=== PATIENT | female | born 1945 | race Caucasian/White ===

== ENCOUNTER → 2020-07-30 17:50 | Outpatient (CLI) | payer MEDICARE, SELFPAY ==
[2020-07-30 17:54] LABS: Microscopic, Urine URINE MICROSCOPIC (MICROSCOPIC)
[2020-07-30 18:05] LABS: Appearance,Urine CLOUDY (Clear); Bilirubin,Urine Negative (Negative); Blood, Urine 3+ (Negative); Color,Urine YELLOW (Yellow); Glucose,Urine (UA) Negative (Negative); Ketones,Urine Negative (Negative); Leukocyte Esterase,Urine Negative (Negative); Nitrate,Urine Negative (Negative); PH,Urine 5.5 (5.0-8.5); Protein,Urine TRACE (Negative); Specific Gravity, Urine >= 1.030 (1.005-1.030)
[2020-07-30 18:26] LABS: Basophils # 0.1 K/mm3 (0-0.2); Basophils % 0.9 % (0.1-2.0); Eosinophils # 0.1 K/mm3 (0.0-0.4); Eosinophils % 1.7 % (0.1-12.0); Hematocrit 41.9 % (37.0-47.0); Hemoglobin 13.3 g/dL (12.2-16.2); Lymphocytes # 1.6 K/mm3 (0.7-4.5); Lymphocytes % 26.1 % (10-50); Mean Corpuscular HGB Conc 31.8 g/dL (31.8-35.4); Mean Corpuscular Volume 78.6 fl (81-99); Mean Platelet Volume 9.5 fl (7.4-10.4); Monocytes # 0.6 K/mm3 (0.1-1.0); Monocytes % 8.8 % (1.7-9.3); Neutrophils # 3.9 K/mm3 (1.8-7.8); Neutrophils % 62.5 % (37.0-80.0); Platelet Count 345 K/mm3 (142-424); Red Blood Count 5.33 M/mm3 (4.20-5.40); Red Cell Distribution Width 14.9 % (11.5-17.5); White Blood Count 6.3 K/mm3 (4.8-10.8)
[2020-07-30 18:40] LABS: Alanine Aminotransferase 11 U/L (12-78); Albumin Level 3.9 g/dl (3.5-5.0); Alkaline Phosphatase 139 U/L (38-126); Anion Gap 14.5 mEq/L (5-15); Aspartate Amino Transferase 26 U/L (14-36); Bilirubin,Total 0.5 mg/dl (0.2-1.3); Blood Urea Nitrogen 13 mg/dl (7-17); Calcium 9.4 mg/dl (8.4-10.2); Carbon Dioxide 30 mmol/L (22.0-30.0); Chloride 100 mmol/L (98-107); Chol/HDL Ratio 2.7 (1-3.5); Cholesterol 166 mg/dl (140-200); Estimated Glomerular Filt Rate 82 ml/min (>60); GFR (African American) 99 ML/MIN (>60); Globulin 3.9 g/dL (1.3-3.2); Glucose 107 mg/dl (74-100); HDL Cholesterol 61 mg/dl (40-60); Potassium 4.5 mmoL/L (3.5-5.1); Sodium 140 mmol/L (136-145); Total Protein,Serum 7.8 g/dl (6.3-8.2); Triglycerides 132 mg/dl (30-150); VLDL Cholesterol 26 mg/dL (0-40)
[2020-07-30 18:51] LABS: Direct LDL Cholesterol 71.26 mg/dL (100-129)
[2020-07-30 18:56] LABS: Free T4 (Free Thyroxine) 1.52 ng/dl (0.78-2.19)
[2020-07-30 19:04] LABS: 25-OH Vitamin D, Total < 12.8 ng/mL (30-100)
[2020-07-30 19:10] LABS: Thyroid Stimulating Hormone 1.57 uIU/mL (0.465-4.68)
== END ==
PROVIDERS: Visit Provider Emergency Medicine
DX: K50.90 Crohn's disease, unspecified, without complications (principal); R53.83 Other fatigue; E78.5 Hyperlipidemia, unspecified; E55.9 Vitamin D deficiency, unspecified
CPT/HCPCS: 80053; 80061; 81001; 82306; 84439; 84443; 85025

== ENCOUNTER → 2022-01-22 07:09 | Outpatient (CLI) | payer MEDICARE, SELFPAY ==
[2022-01-21 17:11] LABS: Basophils # 0.1 K/mm3 (0-0.2); Basophils % 0.4 % (0.1-2.0); Eosinophils # 0.2 K/mm3 (0.0-0.4); Eosinophils % 1.9 % (0.1-12.0); Hematocrit 35.8 % (37.0-47.0); Hemoglobin 10.9 g/dL (12.2-16.2); Lymphocytes # 1.5 K/mm3 (0.7-4.5); Lymphocytes % 13.4 % (10-50); Mean Corpuscular HGB Conc 30.6 g/dL (31.8-35.4); Mean Corpuscular Hemoglobin 23.8 pg (27.0-31.2); Mean Corpuscular Volume 77.8 fl (81-99); Mean Platelet Volume 7.5 fl (7.4-10.4); Monocytes # 0.6 K/mm3 (0.1-1.0); Monocytes % 5.3 % (1.7-9.3); Neutrophils # 8.9 K/mm3 (1.8-7.8); Neutrophils % 78.9 % (37.0-80.0); Platelet Count 645 K/mm3 (142-424); Red Cell Distribution Width 14.8 % (11.5-17.5); White Blood Count 11.3 K/mm3 (4.8-10.8)
[2022-01-21 17:13] LABS: Alanine Aminotransferase 10 U/L (12-78); Albumin/Globulin Ratio 0.8 (1.1-1.8); Alkaline Phosphatase 153 U/L (38-126); Anion Gap 9.4 mEq/L (5-15); Aspartate Amino Transferase 19 U/L (14-36); Bilirubin,Total 0.2 mg/dl (0.2-1.3); Blood Urea Nitrogen 8 mg/dl (7-17); Calcium 9.1 mg/dl (8.4-10.2); Carbon Dioxide 38 mmol/L (22.0-30.0); Chloride 93 mmol/L (98-107); Chol/HDL Ratio 2.2 (1-3.5); Cholesterol 149 mg/dl (140-200); Estimated Glomerular Filt Rate 97 ml/min (>60); GFR (African American) 118 ML/MIN (>60); Globulin 3.6 g/dL (1.3-3.2); Glucose 100 mg/dl (74-100); HDL Cholesterol 67 mg/dl (40-60); Potassium 3.4 mmoL/L (3.5-5.1); Sodium 137 mmol/L (136-145); Total Protein,Serum 6.6 g/dl (6.3-8.2); Triglycerides 121 mg/dl (30-150); VLDL Cholesterol 24 mg/dL (0-40)
[2022-01-21 17:23] LABS: Direct LDL Cholesterol 46.46 mg/dL (100-129)
[2022-01-21 17:32] LABS: 25-OH Vitamin D, Total < 12.8 ng/mL (30-100)
[2022-01-21 17:33] LABS: Free T4 (Free Thyroxine) 1.58 ng/dl (0.78-2.19)
[2022-01-21 17:43] LABS: Erythrocyte Sedimentation Rate 55 mm/hr (0-30)
[2022-01-21 18:08] LABS: Vitamin B12 > 1000 pg/mL (239-931)
== END ==
PROVIDERS: PCP Emergency Medicine; Visit Provider Emergency Medicine
DX: K50.90 Crohn's disease, unspecified, without complications (principal); R53.83 Other fatigue; E55.9 Vitamin D deficiency, unspecified; E78.5 Hyperlipidemia, unspecified
CPT/HCPCS: 80053; 80061; 82306; 82607; 84439; 84443; 85025; 85651

== ENCOUNTER → 2022-01-28 11:48 | Outpatient (CLI) | payer MEDICARE, SELFPAY ==
[2022-01-28 13:07] LABS: Iron 16 ug/dL (37-170)
[2022-01-28 13:17] LABS: Total Iron Binding Capacity 157 ug/dL (265-497)
[2022-01-28 15:39] LABS: Ferritin 548 ng/ml (11.1-264)
[2022-01-30 11:59] LABS: Peripheral Smear Review Scanned Result
== END ==
PROVIDERS: PCP Emergency Medicine; Visit Provider Emergency Medicine
DX: R79.9 Abnormal finding of blood chemistry, unspecified (principal)
CPT/HCPCS: 36415; 82728; 83540; 83550

== ENCOUNTER → 2022-03-06 11:50 | Outpatient (CLI) | payer MEDICARE, SELFPAY ==
[2022-03-06 12:41] LABS: Basophils # 0.1 K/mm3 (0-0.2); Basophils % 0.9 % (0.1-2.0); Eosinophils # 0.3 K/mm3 (0.0-0.4); Hematocrit 37.3 % (37.0-47.0); Lymphocytes # 1.4 K/mm3 (0.7-4.5); Lymphocytes % 16.5 % (10-50); Mean Corpuscular HGB Conc 29.5 g/dL (31.8-35.4); Mean Corpuscular Hemoglobin 24.1 pg (27.0-31.2); Mean Corpuscular Volume 81.7 fl (81-99); Mean Platelet Volume 7.4 fl (7.4-10.4); Monocytes # 0.4 K/mm3 (0.1-1.0); Monocytes % 4.6 % (1.7-9.3); Neutrophils # 6.2 K/mm3 (1.8-7.8); Neutrophils % 73.9 % (37.0-80.0); Platelet Count 526 K/mm3 (142-424); Red Blood Count 4.56 M/mm3 (4.20-5.40); Red Cell Distribution Width 16.8 % (11.5-17.5); White Blood Count 8.4 K/mm3 (4.8-10.8)
[2022-03-06 13:10] LABS: Iron 29 ug/dL (37-170)
[2022-03-06 13:46] LABS: Ferritin 380 ng/ml (11.1-264)
[2022-03-16 19:08] LABS: Interpretation: Negative (.)
== END ==
PROVIDERS: PCP Emergency Medicine; Visit Provider Internal Medicine Medical Oncology
DX: D45 Polycythemia vera; D50.8 Other iron deficiency anemias
CPT/HCPCS: 36415; 81206; 81270; 82728; 83540; 85025

== ENCOUNTER 2023-08-27 00:39 | Observation (INO) | payer MEDICARE, SELFPAY ==
[2023-08-27] VITALS (13 sets, daily range): BP systolic 118–155; BP diastolic 62–86; PULSE 68–145; RESP 13–20; TEMP 36.6–37.2; O2SAT 94–98; BMI 20.3; BMI 20.5; BMI 21.8
--- NOTE | 2023-08-27 00:36 | ECG_ITS ---
APPROVED REPORT Exam: Resting ECG HR:152 bpm ECG Measurements Heart Rate 152 AXES QRSd 90 QRS 57 QT 231 T 262 QTc 317 Conclusion ATRIAL FIBRILLATION WITH RAPID VENTRICULAR RESPONSE MODERATE VOLTAGE CRITERIA FOR LVH, CONSIDER NORMAL VARIANT [MEETS CRITERIA IN ONE OF: R(aVL), S(V1), R(V5), R(V5/V6)+S(V1)] MARKED ST DEPRESSION, CONSIDER SUBENDOCARDIAL INJURY [0.2+ mV ST DEPRESSION] ACUTE [place] UNCONFIRMED REPORT Electronically signed by : Manohar Junior MD 08/27/2023 08:15:58
[2023-08-27 00:51] LABS: Basophils % 0.3 % (0.1-2.0); Eosinophils # 0.1 K/mm3 (0.0-0.4); Eosinophils % 0.9 % (0.1-12.0); Hematocrit 38.6 % (37.0-47.0); Hemoglobin 12.2 g/dL (12.2-16.2); Lymphocytes # 1.6 K/mm3 (0.7-4.5); Lymphocytes % 11.2 % (10-50); Mean Corpuscular HGB Conc 31.5 g/dL (31.8-35.4); Mean Corpuscular Hemoglobin 25.4 pg (27.0-31.2); Mean Corpuscular Volume 80.4 fl (81-99); Mean Platelet Volume 7.4 fl (7.4-10.4); Monocytes # 0.7 K/mm3 (0.1-1.0); Monocytes % 5.1 % (1.7-9.3); Neutrophils # 11.7 K/mm3 (1.8-7.8); Neutrophils % 82.5 % (37.0-80.0); Platelet Count 644 K/mm3 (142-424); Red Cell Distribution Width 16.2 % (11.5-17.5); White Blood Count 14.1 K/mm3 (4.8-10.8)
--- NOTE | 2023-08-27 00:54 | XR_ITS ---
PROCEDURE INFORMATION: Exam: XR Chest Exam date and time: 08/27/2023 1:15 AM Age: 77 years old Clinical indication: Pain; Chest pressure; Additional info: Chest pain TECHNIQUE: Imaging protocol: Radiologic exam of the chest. Views: 1 view. COMPARISON: No relevant prior studies available. FINDINGS: Lungs: There is mild coarsening of the bronchovascular markings with hyperinflation suggesting underlying obstructive airways disease. Pleural spaces: No large effusion or pneumothorax. Heart/Mediastinum: No evidence of mediastinal widening or cardiac silhouette enlargement; the mediastinum and heart appear within normal limits for contour and size. Vasculature: There are calcifications of the aortic arch. Bones/joints: No evidence of acute osseous abnormalities within the visualized portions of the thoracic spine and ribs. Osseous structures appear appropriate for patient age. IMPRESSION: No dense parenchymal consolidation, pleural effusion, or pneumothorax.
[2023-08-27 00:55] LABS: Alanine Aminotransferase 22 U/L (12-78); Albumin Level 2.6 g/dl (3.5-5.0); Albumin/Globulin Ratio 0.7 (1.1-1.8); Alkaline Phosphatase 198 U/L (38-126); Aspartate Amino Transferase 25 U/L (14-36); Bilirubin,Total 0.4 mg/dl (0.2-1.3); Blood Urea Nitrogen 14 mg/dl (7-17); Calcium 8.3 mg/dl (8.4-10.2); Chloride 92 mmol/L (98-107); Creatinine Clearance Estimated 39 mL/min (50-200); Estimated Glomerular Filt Rate 81 ml/min (>60); GFR (African American) 98 ML/MIN (>60); Globulin 3.8 g/dL (1.3-3.2); Glucose 109 mg/dl (74-100); Sodium 137 mmol/L (136-145); Total Protein,Serum 6.4 g/dl (6.3-8.2)
--- NOTE | 2023-08-27 00:55 | HMH.EDGENADL ---
Discharge Plan Disposition Patient Disposition: Admitted Prescriptions Prescriptions: No Action vitamins B1 B6 B12 Liquid 5 ml PO DAILY Rx Instructions: administer 1 hour before a meal Slow Fe 142 mg (45 mg iron) tablet extended release 142 mg PO DAILY Qty: 90 3RF latanoprost 0.005 % drops 1 drp Eye-Both Patient Comments: INSTILL 1 DROP INTO BOTH EYES AT BEDTIME timolol maleate 0.5 % drops 1 drp Eye-Both brimonidine 0.2 % drops 1 drp Eye-Both TID Patient Comments: INSTILL 1 DROP INTO BOTH EYES 3 TIMES A DAY cholecalciferol (vitamin D3) 1,250 mcg (50,000 unit) capsule See Rx Instructions .ROUTE .COMPLEX Qty: 12 4RF Dose Instruction: TAKE ONE CAPSULE BY MOUTH WEEKLY Rx Instructions: TAKE ONE CAPSULE BY MOUTH WEEKLY cholecalciferol (vitamin D3) 25 mcg (1,000 unit) capsule See Rx Instructions .ROUTE .COMPLEX Qty: 90 3RF Dose Instruction: TAKE 1 CAPSULE BY MOUTH EVERY DAY Rx Instructions: TAKE 1 CAPSULE BY MOUTH EVERY DAY Referrals Follow up/Referrals: Provider,Referral, [Primary Care Provider] - See instructions Clinical Impressions Clinical Impression: Atrial fibrillation with rapid ventricular response, Acute hypokalemia Discharge ED Provider: Kenny Sung General Adult HPI General Chief complaint: Chest Pain Stated complaint: chest pain Time Seen by Provider: 08/27/23 00:41 Mode of Arrival: Ambulatory Source of Information: Patient Limitations: No Limitations Description of Symptoms (Recalled from ER Triage Doc. by RN): pt began having chest heaviness at CT, midsternal in location denies any N/dizziness History of Present Illness HPI narrative: 77-year-old female with history of Crohn's, no medications, no cardiac or lung history presents with acute chest pressure. She says she awoke at midnight, approximately half hour prior to arrival, with central chest pressure. She reports nothing like this has happened before. The whole family had a viral illness about 2 weeks ago, and the patient has not fully recovered, has been generally weak, has had diarrhea, reports normal appetite. Related Data Home Medications Medication Instructions Recorded Confirmed vitamins B1 B6 B12 oral liquid 5 ml PO DAILY 07/30/20 02/19/23 brimonidine 0.2 % eye drops 1 drp Eye-Both TID 10/27/22 02/19/23 latanoprost 0.005 % eye drops 1 drp Eye-Both 10/27/22 02/19/23 timolol maleate 0.5 % eye drops 1 drp Eye-Both 10/27/22 02/19/23 Previous Rx's Medication Instructions Recorded ferrous sulfate 142 mg (45 mg 142 mg PO DAILY #90 tabs 07/01/22 iron) tablet,extended release (Slow Fe) cholecalciferol (vitamin D3) 1,250 See Rx Instructions .Route 12/30/22 mcg (50,000 unit) capsule .COMPLEX #12 caps cholecalciferol (vitamin D3) 25 See Rx Instructions .Route 01/18/23 mcg (1,000 unit) capsule .COMPLEX #90 caps Allergies Allergy/AdvReac Type Severity Reaction Status Date / Time No Known Allergies Allergy Verified 02/19/23 13:05 [facility] Disclaimer: The information contained in this section may have been updated after the patient was seen, as this information can be updated by other users. Social History Smoking Status: Never smoker alcohol intake: never substance use type: denies use current occupational status: retired Travel in the last 8 weeks: None household members: family housing: house ROS Obtained: Yes All systems reviewed & no additional complaints except as documented Physical Exam General General appearance: alert and in no apparent distress Head Head exam: atraumatic and normocephalic Eye Eye exam: Present normal appearance, PERRL and EOMI ENT ENT exam: Present normal oropharynx and normal external ear exam Neck Neck exam: Present normal inspection and full ROM Chest Chest inspection: Present normal inspection and symmetric chest wall rise; Absent tenderness Respiratory Respiratory exam: Present normal lung sounds bilaterally; Absent respiratory distress Cardiovascular Cardiovascular exam: Present tachycardia and irregular rhythm Abdominal Exam Abdominal exam: Present soft; Absent distention, tenderness or guarding Extremities Exam Extremities exam: Present normal inspection; Absent edema or joint swelling Back Exam Back exam: Present normal inspection; Absent tenderness Neurological Exam Neurological exam: Present alert and oriented X3; Absent motor sensory deficit Psychiatric Psychiatric exam: Present normal affect and normal mood Skin Skin exam: Present warm, dry and normal color Lymphatic Lymphatic Findings: no adenopathy Medical Decision Making Medical Records Medical records reviewed: Yes I reviewed the patient's medical records. Jamari Inquiry Pt receiving controlled substance: No Jaamri was queried for this patient: No Vital Signs: 08/27/23 00:39 08/27/23 00:48 Temperature 97.9 F Temperature Source Oral Pulse Rate 145 H Pulse Rate [Right Radial] 86 Respiratory Rate 20 Blood Pressure [Right Arm] 133/86 Blood Pressure Mean [Right Arm] 101 02 Sat by Pulse Oximetry 95 Oxygen Delivery Method Room Air Lab Data Lab results reviewed: Yes I reviewed the patient's lab results. Lab Results 08/27/23 00:40: WBC 14.1 H, RBC 4.80, Hgb 12.2, Hct 38.6, MCV 80.4 L, MCH 25.4 L, MCHC 31.5 L, RDW 16.2, Plt Count 644 H, MPV 7.4, Neut % (Auto) 82.5 H, Lymph % (Auto) 11.2, [place] % (Auto) 5.1, Eos % (Auto) 0.9, Baso % (Auto) 0.3, Neut # (Auto) 11.7 H, Lymph # (Auto) 1.6, [place] # (Auto) 0.7, Eos # (Auto) 0.1, Baso # (Auto) 0.0, D-Dimer 0.72 H, Sodium 137, Potassium 2.3 L*, Chloride 92 L, Carbon Dioxide 38 H, Anion Gap 9.3, BUN 14, Creatinine 0.70, Estimated Creat Clear 39, Estimated GFR 81, Est GFR ( Amer) 98, Glucose 109 H, Calcium 8.3 L, Magnesium 2.0, Total Bilirubin 0.4, AST 25, ALT 22, Alkaline Phosphatase 198 H, Troponin I < 0.01, Total Protein 6.4, Albumin 2.6 L, Globulin 3.8 H, Albumin/Globulin Ratio 0.7 L, Thyroxine (T4) 9.2 08/27/23 00:40 08/27/23 00:40 Orders (Tests/Meds): ED MEDICATIONS Generic Name Dose Route Start Last Admin Trade Name Freq PRN Reason Stop Dose Admin Acetaminophen 650 mg 08/27/23 01:04 Acetaminophen 325mg Tab PO 09/26/23 01:03 Q4HP PRN Fever or Mild Pain (1-3) Enoxaparin Sodium 40 mg 08/27/23 09:00 Enoxaparin 40mg/0.4ml Syringe SQ 09/26/23 08:59 DAILY KARIN Lactated Ringer's 1,000 mls @ 999 mls/hr 08/27/23 00:45 08/27/23 01:03 Lactated Ringer's 1000 Ml Bag IV 08/27/23 01:45 999 mls/hr .Q1H1M KARIN Administration Potassium Chloride/Water 100 mls @ 100 mls/hr 08/27/23 01:15 Potassium Chloride 10meq/100ml Ivpb IV 08/27/23 04:14 Q1H KARIN Morphine Sulfate 2 mg 08/27/23 01:04 Morphine 2mg/Ml Syringe IV 09/26/23 01:03 Q2HP PRN Severe Pain (7-10) Pantoprazole Sodium 40 mg 08/27/23 09:00 Pantoprazole 40mg Tablet PO 09/26/23 08:59 DAILY KARIN Discontinued Medications Generic Name Dose Route Start Last Admin Trade Name Freq PRN Reason Stop Dose Admin Aspirin 325 mg 08/27/23 00:41 08/27/23 01:11 Aspirin 325mg Tablet PO 08/27/23 00:42 325 mg ONCE ONE Administration Diltiazem HCl 15 mg 08/27/23 01:00 08/27/23 01:03 Diltiazem 25mg/5ml Vial IV 08/27/23 01:01 15 mg ONCE ONE Administration Potassium Chloride 40 meq 08/27/23 01:01 08/27/23 01:19 Potassium Chloride 20meq Tab PO 08/27/23 01:02 40 meq ONCE ONE Administration ORDERS Category Date Time Status Cardiology Consult [Consult to Cardiology] [CONS] Cons 08/27/23 01:04 Active Routine CXR --portable [XR chest portable] Stat Exams 08/27/23 00:54 Taken CBC w/Auto Diff [Complete Blood Count Auto Diff] Stat Lab 08/27/23 00:40 Completed CMP [Comprehensive Metabolic Panel] Stat Lab 08/27/23 00:40 Results Comprehensive Metabolic Panel AMLAB Lab 08/27/23 12:00 Ordered D-Dimer Stat Lab 08/27/23 00:40 Completed Magnesium AMLAB Lab 08/27/23 12:00 Ordered Magnesium Stat Lab 08/27/23 00:40 Results T4 (Thyroxine) Stat Lab 08/27/23 00:40 Results TSH [Thyroid Stimulating Hormone] Stat Lab 08/27/23 00:40 Results Troponin I Q3H Lab 08/27/23 00:40 Results Troponin I Q3H Lab 08/27/23 03:45 Ordered UA [Urinalysis and Microscopic] Stat Lab 08/27/23 00:42 Ordered HEART Score History (anamnesis): Moderately suspicious ECG: Significant ST-deviation Age: >65 years Risk factors: No known risk factors Troponin: </= normal limit HEART Score: 5 Medical Decision Narrative: 77-year-old female presents with approximately half hour of central chest pressure. No prior cardiac history.. History was obtained via conversation with patient, family, chart review. On arrival, patient is afebrile, normotensive, tachycardic, in new onset A-fib RVR, moving all extremities spontaneously. Full physical exam performed and significant for normal physical exam. Differential includes but is not limited to new onset A-fib, [place], PE, electrolyte derangement. Patient was given aspirin 324, IV diltiazem 15 mg, 1 L fluid for symptomatic management and correction of underlying abnormalities. Workup initiated including CBC CMP mag troponin D-dimer x-ray EKG. On re-evaluation, patient remains tachycardic, normotensive. Initial diltiazem bolus did not seem to have significant effect. Laboratory workup independently interpreted by me and significant for severe hypokalemia with potassium 2.3. Normal magnesium. D-dimer within normal limits by years criteria. Initial troponin undetectable. Imaging independently interpreted by me and significant for no focal opacity. See radiology read for full review of final results. EKG independently interpreted by me and significant for atrial fibrillation with rapid ventricular rate at 152, marked diffuse ST depressions consistent with rate related subendocardial injury. CT PE was considered, but deemed unnecessary due to negative dimer. Electrical cardioversion was considered, but deemed unnecessary at this time given significant electrolyte derangements, instead we will treat the underlying source. Given patient history, exam and workup, patient's presentation most likely represents acute onset A-fib RVR related to hypokalemia. Interactive discussion was had with hospitalist on-call for admission for further evaluation and management.. Care complicated by social determinants of health including []. Procedures Risk/Benefits of Procedure(s) Were Explained: Yes Critical Care Critical Care Time Critical Care Time: Yes Attestation: On 08/27/23, the high probability of a clinically significant, sudden or life threatening deterioration of the following system(s) cardiac required my full and direct attention, intervention and personal management. The time I documented below is in addition to time spent performing reported procedures but includes the following listed in this critical care notation. Total Time Total Critical Care Time: 35
[2023-08-27 01:00] LABS: Potassium 2.3 mmoL/L (3.5-5.1)
[2023-08-27 01:01] LABS: Anion Gap 9.3 mEq/L (5-15); Carbon Dioxide 38 mmol/L (22.0-30.0); D-Dimer 0.72 ug/mL (0.0-0.5)
[2023-08-27] MEDS: LACTATED RINGERS 1000ML 1,000 ML 999 ML IV (01:03)
[2023-08-27] MEDS: dilTIAZem 25MG/5ML VIAL 15 MG IV (01:03)
--- NOTE | 2023-08-27 01:07 | P.HP_ITS ---
History of Present Illness *Admission Date: 08/27/23 *Reason for visit:: CP *History of present illness: This is a 77-year-old female with no other significant history than Crohn's disease, no medications, apparently no cardiac or lung history presented to ED with acute chest pressure. She says she awoke at midnight, approximately half hour prior to arrival, with central chest pressure. She reports nothing like this has happened before. Of note, patient reportedly having diarrhea. she is been in contact with other family members that had a viral illness about 2 weeks ago . She has been generally weak, reports normal appetite. no fever or shortness of breath. Admitted for further work up. [facility] Disclaimer: The information contained in this section may have been updated after the patient was seen, as this information can be updated by other users. Social History (Updated 08/27/23 @ 03:18 by Usha Partida RN) Smoking Status: Never smoker alcohol intake: never substance use type: denies use current occupational status: retired Travel in the last 8 weeks: None household members: family housing: house Review of Systems Review of Systems Review of systems:: pertinent systems reviewed and negative unless documented below Meds Home Medications and Allergies Home Medications Medication Instructions Recorded Confirmed Type latanoprost 0.005 % eye drops 1 drp Eye-Both HS Glaucoma 10/27/22 08/27/23 History timolol maleate 0.5 % eye drops 1 drp Eye-Both BID 10/27/22 08/27/23 History apixaban 5 mg tablet (Eliquis) 5 mg PO BID 30 days #60 tabs 08/27/23 Rx brimonidine 0.2 % eye drops 1 drp Eye-Both TID 08/27/23 08/27/23 History cholecalciferol (vitamin D3) 25 25 mcg PO DAILY Supplement 08/27/23 08/27/23 History mcg (1,000 unit) capsule ciprofloxacin HCl 250 mg tablet 250 mg PO Q12H 5 days #10 tabs 08/27/23 Rx diltiazem HCl 120 mg 120 mg PO DAILY 30 days #30 caps 08/27/23 Rx capsule,extended release 24 hr ferrous sulfate 137 mg (45 mg 137 mg PO DAILY Supplement 08/27/23 08/27/23 History iron) tablet,extended release (Slow Fe) metronidazole 500 mg tablet 500 mg PO TID 7 days #21 tabs 08/27/23 Rx New Prescriptions to Start Prescriptions: apixaban [Eliquis] Roldan,Irfan ciprofloxacin HCl Roldan,Irfan diltiazem HCl Roldan,Irfan metronidazole Roldan,Irfan Allergies Allergy/AdvReac Type Severity Reaction Status Date / Time No Known Allergies Allergy Verified 02/19/23 13:05 Exam Data for Last 24 hours Vital signs and Labs for Last 24 Hours: Temp Pulse Resp BP Pulse Ox O2 Del Method 97.9 F 145 H 20 133/86 95 Room Air 08/27/23 00:39 08/27/23 00:48 08/27/23 00:39 08/27/23 00:39 08/27/23 00:39 08/27/23 00:39 Laboratory Results - last 24 hr 08/27/23 00:40: WBC 14.1 H, RBC 4.80, Hgb 12.2, Hct 38.6, MCV 80.4 L, MCH 25.4 L , MCHC 31.5 L, RDW 16.2, Plt Count 644 H, MPV 7.4, Neut % (Auto) 82.5 H, Lymph % (Auto) 11.2, [place] % (Auto) 5.1, Eos % (Auto) 0.9, Baso % (Auto) 0.3, Neut # (Auto) 11.7 H, Lymph # (Auto) 1.6, [place] # (Auto) 0.7, Eos # (Auto) 0.1, Baso # (Auto) 0.0, D-Dimer 0.72 H, Sodium 137, Potassium 2.3 L*, Chloride 92 L, Carbon Dioxide 38 H, Anion Gap 9.3, BUN 14, Creatinine 0.70, Estimated Creat Clear 39, Estimated GFR 81, Est GFR ( Amer) 98, Glucose 109 H, Calcium 8.3 L, Magnesium 2.0, Total Bilirubin 0.4, AST 25, ALT 22, Alkaline Phosphatase 198 H, Total Protein 6.4, Albumin 2.6 L, Globulin 3.8 H, Albumin/Globulin Ratio 0.7 L I & O for Last 24 hours: Intake & Output 08/24/23 08/25/23 08/26/23 08/27/23 23:59 23:59 23:59 23:59 Weight 52.163 kg Constitutional Constitutional: mild distress and cooperative *Routine HEENT Exam Head: Present normocephalic and atraumatic Eye: Present EOMI, PERRL and normal accommodation ENT: Present mucous membranes dry *Routine Neck Exam Neck: Present supple, full ROM and trachea midline *Routine Respiratory Exam Respiratory: Present normal respiratory effort, able to speak in complete sentences and symmetric chest movement *Routine Cardiovascular Exam Cardiovascular: Present Normal S1, Normal S2, tachycardia and irregularly irregular *Routine Abdominal Exam Abdominal: Present soft, normoactive bowel sounds and tenderness; Absent organomegaly *Routine Rectal Exam Rectal:: deferred *Routine Genitalia Exam Genitalia:: deferred *Routine Extremities Exam Extremities: Present full ROM and pulses intact; Absent cyanosis, clubbing or edema *Routine Skin Exam Skin: Present intact, dry and warm *Routine Neurological Exam Neurological: Present alert, oriented X3, normal reflexes, moving all extremities and normal speech Routine Psychiatric Exam Psychiatric: Present normal thought process and cooperative H&P: Result Imaging and Cardiology EKG: Status: image reviewed by me and Preliminary report Chest x-ray: Status: image reviewed by me, Preliminary report and final report Assessment and Plan *Assessment and plan (1) Atrial fibrillation with rapid ventricular response: Status: Acute Category: Medical Code(s): I48.91 - Unspecified atrial fibrillation (2) Acute hypokalemia: Status: Acute Category: Medical Code(s): E87.6 - Hypokalemia (3) Elevated troponin: Status: Acute Category: Medical Code(s): R79.89 - Other specified abnormal findings of blood chemistry (4) Elevated BP without diagnosis of hypertension: Status: Acute Category: Medical Code(s): R03.0 - Elevated blood-pressure reading, without diagnosis of hypertension (5) Hx of Crohn's disease: Status: Acute Category: Medical Code(s): Z87.19 - Personal history of other diseases of the digestive system Plan 77-year-old female with no other significant history than Crohn's disease, no medications, apparently no cardiac or lung history presented to ED with acute chest pressure. On arrival patient presented well appearance, nontoxic, tachycardic. EKG was obtained. Initially on A-fib with RVR. No specific ischemic findings. Initial troponin are negative. 15 mg IV push Cardizem was given. Labs remarkable for mild leukocytosis, severe hypokalemia. Chest x-ray was obtained. No focal consolidation seen. Discussion made with the ER provider for admission. Plan as follows: -Afib with RVR> resolved after IVP cardizem Admit patient for continued cardiac telemetry. Cardiology consult. Monitor for her rhythm and blood pressure per unit protocol Monitor for chest pain -Acute hypokalemia, likely secondary to depletion due to diarrhea Replace IV protocol Repeat labs Monitor for electrolyte imbalance Monitor for cardiac arrhythmias -Elevated troponin Troponin elevated after the second draw Continue monitor Cardiology on board Patient hemodynamically stable chest pain-free -Elevated blood pressure without diagnosis of hypertension: patient on the monitor Initially approaching with nonpharmacologic measures. Continue monitoring. May need definitive workup for diagnosis History of Crohn's disease: Presented with chronic diarrhea for the last 2 weeks White count elevated. Monitor on repeat WBC Patient has no abdominal pain Will be treated empirically for colitis Patient is seen and evaluated at bedside, reviewed patient chart, discussed POC with patient, please see same date H&P for further recommendations
--- NOTE | 2023-08-27 01:07 | PC.NURSE ---
Notified house for admission
[2023-08-27 01:08] LABS: Troponin I < 0.01 ng/ml (0.00-0.034)
[2023-08-27] MEDS: ASPIRIN 325MG TABLET 325 MG PO (01:11)
[2023-08-27 01:12] LABS: T4 (Thyroxine) 9.2 ug/dl (5.53-11.0)
[2023-08-27] MEDS: POTASSIUM CHLORIDE 20MEQ TAB 40 MEQ PO (01:19)
[2023-08-27 01:25] LABS: Thyroid Stimulating Hormone 1.46 uIU/mL (0.465-4.68)
[2023-08-27] MEDS: KCl 10mEq/100ml 100 ML 100 MEQ IV ×5 (01:30→13:32)
[2023-08-27 01:34] LABS: Microscopic, Urine URINE MICROSCOPIC (MICROSCOPIC)
[2023-08-27 01:35] LABS: Appearance,Urine CLEAR (Clear); Bilirubin,Urine Negative (Negative); Blood, Urine 2+ (Negative); Color,Urine YELLOW (Yellow); Glucose,Urine (UA) Negative (Negative); Ketones,Urine Negative (Negative); Leukocyte Esterase,Urine 2+ (Negative); Nitrate,Urine Negative (Negative); PH,Urine 6.5 (5.0-8.5); Protein,Urine Negative (Negative); Specific Gravity, Urine <= 1.005 (1.005-1.030); Urobilinogen,Urine 0.2 EU/dl (0.2)
[2023-08-27 01:48] LABS: Bacteria,Urine 1+ /lpf; Mucus,Urine 1+ /lpf
--- NOTE | 2023-08-27 01:49 | ECG_ITS ---
APPROVED REPORT Exam: Resting ECG HR:83 bpm ECG Measurements Heart Rate 83 AXES MD 154 P 89 QRSd 88 QRS 49 QT 348 T 17 QTc 388 Conclusion SINUS RHYTHM WITH OCCASIONAL SUPRAVENTRICULAR PREMATURE COMPLEXES LEFT VENTRICULAR HYPERTROPHY AND ST-T CHANGE [VOLTAGE CRITERIA PLUS ST/T ABNORMALITY] ABNORMAL ECG UNCONFIRMED REPORT Electronically signed by : Manohar Junior MD 08/27/2023 08:15:46
[2023-08-27 04:16] LABS: Troponin I 0.04 ng/ml (0.00-0.034)
--- NOTE | 2023-08-27 07:00 | CA_ITS ---
APPROVED REPORT EXAM: Comprehensive 2D, Doppler, and color-flow Echocardiogram [employer]: Bea Nuñez CRT Ht: 5 ft 2 in Wt: 116lbs BSA: 1.52 BP: 133/86 mmHg Indications: Chest Pain, Atrial Fibrillation, Hypertension/HDD 2D Dimensions LA Volume 38.60 mL LA Volume Index 24.90 mL/m2 (M/F) 16-34 M-Mode Dimensions RVDd 3.04 cm (0.9-2.6) LA Diam 4.47 cm (1.9-4.0) LVDd 3.82 cm (3.5-5.7) LVDs 2.79 cm (3.5-5.7) IVSd 1.41 cm (0.6-1.1) PWd 0.66 cm (0.6-1.1) EF (Teich) 53.30% FS 27.00% EDV (Teich) 62.70 mL TAPSE 2.26 (<1.7) ESV (Teich) 29.30 mL LV Diastology E Decel Time 157 (160-240 msec) E/A Ratio 1.59 MED A' 7.60 cm/s LAT A' 6.20 cm/s Aortic Valve AI PHT 360.00 ms AO Peak GR. 8.80 mmHg Mitral Valve MV E Max Regis. 117.0 (40-130 cm/s) MV A Velocity 74.0 (40-130 cm/s) E/A Ratio 1.59 MV PHT 46.0 ms Pulmonary Valve PV Peak Velocity 112.0 (50-150 cm/s) Tricuspid Valve TR P. Velocity 260.00 cm/s RAP Estimate 10.00 mmHg RVSP 37.00 mmHg Left Ventricle The left ventricle is normal size. The left ventricular systolic function is normal. The left ventricular ejection fraction is within the normal range. There is normal left ventricular wall thickness. There is normal LV segmental wall motion. The left ventricular diastolic function is normal. LVEF is 55%. Right Ventricle The right ventricle is normal size. The right ventricular systolic function is normal. Atria The left atrium size is normal. The right atrium size is normal. There is no Doppler evidence of interatrial shunt. Aortic Valve The aortic valve is mildly thickened. There is no aortic valvular stenosis. Mild aortic regurgitation. Mitral Valve The mitral valve leaflets are mildly thickened. No evidence of mitral valve stenosis. Mild mitral regurgitation. Tricuspid Valve The tricuspid valve leaflets are thin and pliable. Trace tricuspid regurgitation. RVSP is normal. Pulmonic Valve The pulmonary valve is normal in structure. Trace pulmonic regurgitation. Great Vessels The aortic root is normal in size. The ascending aorta is normal in size. IVC is normal in size and collapses >50% with inspiration. Pericardium There is no pericardial effusion. Other Information Study Quality: Adequate Conclusion Normal biventricular systolic function. Mild MR, mild AI. Electronically signed by : Dedra Anton MD 08/27/2023 16:56:49
[2023-08-27] MEDS: metroNIDAZOLE 500 MG TABLET PO ×2 (08:31→13:36)
[2023-08-27] MEDS: PANTOPRAZOLE 40MG TABLET 40 MG PO (08:31)
--- NOTE | 2023-08-27 08:56 | EXP.CARD.CON ---
History of Present Illness History of Present Illness Consult date: 08/27/23 Requesting physician: Christy Montilla Consult reason: atrial fibrillation Chief complaint: A. fib with RVR Additional Medical History:: 1. History of Crohn's disease 2. New onset atrial fibrillation with a rapid ventricular response, to 124 in setting of recent episode of diarrhea History of present illness: This is a 77-year-old female with no other significant history than Crohn's disease, no medications, apparently no cardiac or lung history presented to ED with acute chest pressure. She says she awoke at midnight, approximately half hour prior to arrival, with central chest pressure. She reports nothing like this has happened before. Of note, patient reportedly having diarrhea. she is been in contact with other family members that had a viral illness about 2 weeks ago . She has been generally weak, reports normal appetite. no fever or shortness of breath. Admitted for further work up. The above per Michele Bishop APRN for hospitalist service Events above confirmed with patient. She has no prior history of cardiac issues or arrhythmias. She is a non-smoker, no history of diabetes, hypertension or hyperlipidemia. She did receive 1 dose of IV diltiazem in the ER and then converted to normal sinus rhythm later. Patient is currently asymptomatic and undergoing echocardiogram at the time of my exam. She did have some brief atrial tachycardia during my conversation/exam with her. Preliminary echocardiogram shows preserved ejection fraction without significant valve disease. Potassium 2.3 on admission Renal functions normal Troponins initially normal but then mildly elevated at 0.04 PFSH PFSH Disclaimer: The information contained in this section may have been updated after the patient was seen, as this information can be updated by other users. Social History (Updated 08/27/23 @ 03:18 by Usha Partida RN) Smoking Status: Never smoker alcohol intake: never substance use type: denies use current occupational status: retired Travel in the last 8 weeks: None household members: family housing: house Review of Systems Review of Systems Review of systems:: pertinent systems reviewed and negative unless documented below *Cardiovascular Cardiovascular: Reports chest pain, Denies dyspnea and Reports palpitations *Respiratory Respiratory: Denies dyspnea *Gastrointestinal Gastrointestinal: Reports loose stools Endocrine Endocrine: Reports palpitations Exam Data for Last 24 hours Vital signs and Labs for Last 24 Hours: Temp Pulse Resp BP Pulse Ox O2 Del Method 98.3 F 71 16 142/67 H 95 Room Air 08/27/23 08:00 08/27/23 08:00 08/27/23 08:00 08/27/23 08:00 08/27/23 08:00 08/27/23 08:00 Laboratory Results - last 24 hr 08/27/23 00:40: WBC 14.1 H, RBC 4.80, Hgb 12.2, Hct 38.6, MCV 80.4 L, MCH 25.4 L, MCHC 31.5 L, RDW 16.2, Plt Count 644 H, MPV 7.4, Neut % (Auto) 82.5 H, Lymph % (Auto) 11.2, [place] % (Auto) 5.1, Eos % (Auto) 0.9, Baso % (Auto) 0.3, Neut # (Auto) 11.7 H, Lymph # (Auto) 1.6, [place] # (Auto) 0.7, Eos # (Auto) 0.1, Baso # (Auto) 0.0, D-Dimer 0.72 H, Sodium 137, Potassium 2.3 L*, Chloride 92 L, Carbon Dioxide 38 H, Anion Gap 9.3, BUN 14, Creatinine 0.70, Estimated Creat Clear 39, Estimated GFR 81, Est GFR ( Amer) 98, Glucose 109 H, Calcium 8.3 L, Magnesium 2.0, Total Bilirubin 0.4, AST 25, ALT 22, Alkaline Phosphatase 198 H, Troponin I < 0.01, Total Protein 6.4, Albumin 2.6 L, Globulin 3.8 H, Albumin/Globulin Ratio 0.7 L, TSH 1.46, Thyroxine (T4) 9.2 08/27/23 01:29: Urine Color Yellow, Urine Appearance Clear, Urine pH 6.5, Ur Specific [place] <= 1.005, Urine Protein Negative, Urine Glucose (UA) Negative, Urine Ketones Negative, Urine Blood 2+, Urine Nitrate Negative, Urine Bilirubin Negative, Urine Urobilinogen 0.2, Ur Leukocyte Esterase 2+ A, Urine RBC 5-10, Urine WBC 10-20, Ur Squamous Epith Cells 5-10, Urine Bacteria 1+, Urine Mucus 1+ 08/27/23 03:47: Troponin I 0.04 H I & O for Last 24 hours: Intake & Output 01/08/25/23 08/26/23 08/27/23 11:59 11:59 11:59 11:59 Output Total 0 / 0 Balance 0 / 0 Weight 123 lb Constitutional Constitutional: no acute distress *Routine Respiratory Exam Respiratory: Present CTA bilaterally *Routine Cardiovascular Exam Cardiovascular: Present RRR; Absent murmur, gallop or rubs *Routine Extremities Exam Extremities: Absent edema *Routine Neurological Exam Neurological: Present alert, oriented X3 and CN II-XII intact Meds Home Medications and Allergies Home Medications Medication Instructions Recorded Confirmed Type latanoprost 0.005 % eye drops 1 drp Eye-Both HS Glaucoma 10/27/22 08/27/23 History timolol maleate 0.5 % eye drops 1 drp Eye-Both BID 10/27/22 08/27/23 History brimonidine 0.2 % eye drops 1 drp Eye-Both TID 08/27/23 08/27/23 History cholecalciferol (vitamin D3) 25 25 mcg PO DAILY Supplement 08/27/23 08/27/23 History mcg (1,000 unit) capsule ferrous sulfate 137 mg (45 mg 137 mg PO DAILY Supplement 08/27/23 08/27/23 History iron) tablet,extended release (Slow Fe) New Prescriptions to Start Prescriptions: Allergies Allergy/AdvReac Type Severity Reaction Status Date / Time No Known Allergies Allergy Verified 02/19/23 13:05 Assessment and Plan *Assessment and plan (1) Atrial fibrillation with rapid ventricular response: Status: Acute Category: Medical Code(s): I48.91 - Unspecified atrial fibrillation (2) Elevated troponin: Status: Acute Category: Medical Code(s): R79.89 - Other specified abnormal findings of blood chemistry (3) Hx of Crohn's disease: Status: Acute Category: Medical Code(s): Z87.19 - Personal history of other diseases of the digestive system (4) Acute hypokalemia: Status: Acute Category: Medical Code(s): E87.6 - Hypokalemia (5) Elevated BP without diagnosis of hypertension: Status: Acute Category: Medical Code(s): R03.0 - Elevated blood-pressure reading, without diagnosis of hypertension Plan 1. Atrial fibrillation with rapid ventricular response subsequently converted to sinus rhythm with IV diltiazem push -Echocardiogram preliminary result shows preserved ejection fraction with no significant valve disease -Will start diltiazem 120 mg extended release to maintain sinus rhythm -[id number] score of 3 (age, sex) with recommendation to add eliquis 5 mg BID -Recommend 2-week monitor upon discharge 2. Elevated troponin likely secondary to demand ischemia related to A-fib with RVR -Currently asymptomatic -Will plan to proceed with outpatient ischemic workup 3. Acute hypokalemia, likely related related to GI illness -Repeat lab work pending this morning 4. History of Crohn's Discussed with Dr. Akers. Echocardiogram shows preserved ejection fraction with no significant valve disease. Patient should be stable from a cardiac standpoint to discharge home when potassium is back to normal. Home medication recommendations: Diltiazem CD 120 mg daily Eliquis 5 mg twice daily 2-week event monitor at time of discharge Follow-up in our office in 2 to 3 weeks.
[2023-08-27] MEDS: dilTIAZem ER 120MG CAPSULE 120 MG PO (09:51)
[2023-08-27 10:46] LABS: Alanine Aminotransferase 24 U/L (12-78); Albumin Level 1.9 g/dl (3.5-5.0); Albumin/Globulin Ratio 0.6 (1.1-1.8); Alkaline Phosphatase 136 U/L (38-126); Anion Gap 3.8 mEq/L (5-15); Aspartate Amino Transferase 25 U/L (14-36); Bilirubin,Total 0.2 mg/dl (0.2-1.3); Blood Urea Nitrogen 10 mg/dl (7-17); Calcium 7.5 mg/dl (8.4-10.2); Carbon Dioxide 39 mmol/L (22.0-30.0); Chloride 98 mmol/L (98-107); Creatinine Clearance Estimated 42 mL/min (50-200); Estimated Glomerular Filt Rate 97 ml/min (>60); GFR (African American) 118 ML/MIN (>60); Glucose 128 mg/dl (74-100); Sodium 138 mmol/L (136-145); Total Protein,Serum 4.9 g/dl (6.3-8.2)
[2023-08-27 10:50] LABS: Potassium 2.8 mmoL/L (3.5-5.1)
[2023-08-27] MEDS: APIXABAN 5MG TABLET 5 MG PO (11:45)
[2023-08-27] MEDS: POTASSIUM CHLORIDE 20MEQ TAB 20 MEQ PO (11:54)
[2023-08-27] MEDS: 0.9 % SODIUM CHLORIDE 250 ML 100 ML IV (12:16)
[2023-08-27 15:41] LABS: Potassium 3.5 mmoL/L (3.5-5.1)
--- NOTE | 2023-08-27 16:40 | EXP.DC.SUM ---
General Admission date:: 08/27/23 Discharge date: 08/27/23 HPI HPI HPI: This is a 77-year-old female with no other significant history than Crohn's disease, no medications, apparently no cardiac or lung history presented to ED with acute chest pressure. She says she awoke at midnight, approximately half hour prior to arrival, with central chest pressure. She reports nothing like this has happened before. Of note, patient reportedly having diarrhea. she is been in contact with other family members that had a viral illness about 2 weeks ago . She has been generally weak, reports normal appetite. no fever or shortness of breath. Admitted for further work up. Hospital Course Hospital Course Hospital Course: 77-year-old female with no other significant history than Crohn's disease, no medications, apparently no cardiac or lung history presented to ED with acute chest pressure. On arrival patient presented well appearance, nontoxic, tachycardic. EKG was obtained. Initially on A-fib with RVR. No specific ischemic findings. Initial troponin are negative. 15 mg IV push Cardizem was given. Labs remarkable for mild leukocytosis, severe hypokalemia. Chest x-ray was obtained. No focal consolidation seen. Discussion made with the ER provider for admission. Plan as follows: -Afib with RVR> resolved after IVP cardizem - improved, DC on PO cardizem -Acute hypokalemia, likely secondary to depletion due to diarrhea - improved -Elevated troponin secondary to demand ischemia -Elevated blood pressure without diagnosis of hypertension: patient on the monitor Initially approaching with nonpharmacologic measures. Continue monitoring. May need definitive workup for diagnosis History of Crohn's disease: DC on empirical Cipro and flagyl Exam Data for Last 24 hours Vital signs and Labs for Last 24 Hours: Temp Pulse Resp BP Pulse Ox O2 Del Method 98.9 F 72 16 131/72 97 Room Air 08/27/23 16:00 08/27/23 16:00 08/27/23 16:08/27/23 16:08/27/23 16:08/27/23 16:18 Laboratory Results - last 24 hr 08/27/23 00:40: WBC 14.1 H, RBC 4.80, Hgb 12.2, Hct 38.6, MCV 80.4 L, MCH 25.4 L, MCHC 31.5 L, RDW 16.2, Plt Count 644 H, MPV 7.4, Neut % (Auto) 82.5 H, Lymph % (Auto) 11.2, [place] % (Auto) 5.1, Eos % (Auto) 0.9, Baso % (Auto) 0.3, Neut # (Auto) 11.7 H, Lymph # (Auto) 1.6, [place] # (Auto) 0.7, Eos # (Auto) 0.1, Baso # (Auto) 0.0, D-Dimer 0.72 H, Sodium 137, Potassium 2.3 L*, Chloride 92 L, Carbon Dioxide 38 H, Anion Gap 9.3, BUN 14, Creatinine 0.70, Estimated Creat Clear 39, Estimated GFR 81, Est GFR ( Amer) 98, Glucose 109 H, Calcium 8.3 L, Magnesium 2.0, Total Bilirubin 0.4, AST 25, ALT 22, Alkaline Phosphatase 198 H, Troponin I < 0.01, Total Protein 6.4, Albumin 2.6 L, Globulin 3.8 H, Albumin/Globulin Ratio 0.7 L, TSH 1.46, Thyroxine (T4) 9.2 08/27/23 01:29: Urine Color Yellow, Urine Appearance Clear, Urine pH 6.5, Ur Specific [place] <= 1.005, Urine Protein Negative, Urine Glucose (UA) Negative, Urine Ketones Negative, Urine Blood 2+, Urine Nitrate Negative, Urine Bilirubin Negative, Urine Urobilinogen 0.2, Ur Leukocyte Esterase 2+ A, Urine RBC 5-10, Urine WBC 10-20, Ur Squamous Epith Cells 5-10, Urine Bacteria 1+, Urine Mucus 1+ 08/27/23 03:47: Troponin I 0.04 H 08/27/23 10:07: Sodium 138, Potassium 2.8 L* D, Chloride 98, Carbon Dioxide 39 H, Anion Gap 3.8 L, BUN 10 D, Creatinine 0.60, Estimated Creat Clear 42, Estimated GFR 97, Est GFR ( Amer) 118 D, Glucose 128 H, Calcium 7.5 L, Magnesium 2.0, Total Bilirubin 0.2, AST 25, ALT 24, Alkaline Phosphatase 136 H, Total Protein 4.9 L, Albumin 1.9 L D, Globulin 3.0, Albumin/Globulin Ratio 0.6 L 02/02/24 15:25: Potassium 3.5 D I & O for Last 24 hours: Intake & Output 08/24/23 08/25/23 08/26/23 08/27/23 23:59 23:59 23:59 23:59 Intake Total 240 / 240 Output Total 0 / 0 Balance 240 / 240 Weight 55.792 kg Constitutional Constitutional: no acute distress *Routine HEENT Exam Head: Present normocephalic Eye: Present EOMI and PERRL ENT: Present mucous membranes moist *Routine Neck Exam Neck: Present supple; Absent lymphadenopathy *Routine Respiratory Exam Respiratory: Present CTA bilaterally *Routine Cardiovascular Exam Cardiovascular: Present RRR *Routine Abdominal Exam Abdominal: Present soft and normoactive bowel sounds; Absent tenderness *Routine Extremities Exam Extremities: Absent cyanosis, clubbing or edema *Routine Skin Exam Skin: Present warm; Absent rash *Routine Neurological Exam Neurological: Present alert and oriented X3 Results Data Completed and Pending Labs on day of discharge: Labs from last 24 hours 08/27/23 08/27/23 08/27/23 15:25 10:07 03:47 WBC RBC Hgb Hct MCV MCH MCHC RDW Plt Count MPV Neut % (Auto) Lymph % (Auto) [place] % (Auto) Eos % (Auto) Baso % (Auto) Neut # (Auto) Lymph # (Auto) [place] # (Auto) Eos # (Auto) Baso # (Auto) D-Dimer Sodium 138 Potassium 3.5 D 2.8 L* D Chloride 98 Carbon Dioxide 39 H Anion Gap 3.8 L BUN 10 D Creatinine 0.60 Estimated Creat Clear 42 Estimated GFR 97 Est GFR ( Amer) 118 D Glucose 128 H Calcium 7.5 L Magnesium 2.0 Total Bilirubin 0.2 AST 25 ALT 24 Alkaline Phosphatase 136 H Troponin I 0.04 H Total Protein 4.9 L Albumin 1.9 L D Globulin 3.0 Albumin/Globulin Ratio 0.6 L TSH Thyroxine (T4) Urine Color Urine Appearance Urine pH Ur Specific [place] Urine Protein Urine Glucose (UA) Urine Ketones Urine Blood Urine Nitrate Urine Bilirubin Urine Urobilinogen Ur Leukocyte Esterase Urine RBC Urine WBC Ur Squamous Epith Cells Urine Bacteria Urine Mucus 08/27/23 08/27/23 01:29 00:40 WBC 14.1 H RBC 4.80 Hgb 12.2 Hct 38.6 MCV 80.4 L MCH 25.4 L MCHC 31.5 L RDW 16.2 Plt Count 644 H MPV 7.4 Neut % (Auto) 82.5 H Lymph % (Auto) 11.2 [place] % (Auto) 5.1 Eos % (Auto) 0.9 Baso % (Auto) 0.3 Neut # (Auto) 11.7 H Lymph # (Auto) 1.6 [place] # (Auto) 0.7 Eos # (Auto) 0.1 Baso # (Auto) 0.0 D-Dimer 0.72 H Sodium 137 Potassium 2.3 L* Chloride 92 L Carbon Dioxide 38 H Anion Gap 9.3 BUN 14 Creatinine 0.70 Estimated Creat Clear 39 Estimated GFR 81 Est GFR ( Amer) 98 Glucose 109 H Calcium 8.3 L Magnesium 2.0 Total Bilirubin 0.4 AST 25 ALT 22 Alkaline Phosphatase 198 H Troponin I < 0.01 Total Protein 6.4 Albumin 2.6 L Globulin 3.8 H Albumin/Globulin Ratio 0.7 L TSH 1.46 Thyroxine (T4) 9.2 Urine Color Yellow Urine Appearance Clear Urine pH 6.5 Ur Specific [place] <= 1.005 Urine Protein Negative Urine Glucose (UA) Negative Urine Ketones Negative Urine Blood 2+ Urine Nitrate Negative Urine Bilirubin Negative Urine Urobilinogen 0.2 Ur Leukocyte Esterase 2+ A Urine RBC 5-10 Urine WBC 10-20 Ur Squamous Epith Cells 5-10 Urine Bacteria 1+ Urine Mucus 1+ DS: Diagnosis Discharge Diagnosis (1) Atrial fibrillation with rapid ventricular response: Status: Acute Code(s): I48.91 - Unspecified atrial fibrillation (2) Elevated troponin: Status: Acute Code(s): R79.89 - Other specified abnormal findings of blood chemistry (3) Hx of Crohn's disease: Status: Acute Code(s): Z87.19 - Personal history of other diseases of the digestive system (4) Acute hypokalemia: Status: Acute Code(s): E87.6 - Hypokalemia (5) Elevated BP without diagnosis of hypertension: Status: Acute Code(s): R03.0 - Elevated blood-pressure reading, without diagnosis of hypertension Meds Home Medications and Allergies Home Medications Medication Instructions Recorded Confirmed Type latanoprost 0.005 % eye drops 1 drp Eye-Both HS Glaucoma 10/27/22 08/27/23 History timolol maleate 0.5 % eye drops 1 drp Eye-Both BID 10/27/22 08/27/23 History apixaban 5 mg tablet (Eliquis) 5 mg PO BID 30 days #60 tabs 08/27/23 Rx brimonidine 0.2 % eye drops 1 drp Eye-Both TID 08/27/23 08/27/23 History cholecalciferol (vitamin D3) 25 25 mcg PO DAILY Supplement 08/27/23 08/27/23 History mcg (1,000 unit) capsule ciprofloxacin HCl 250 mg tablet 250 mg PO Q12H 5 days #10 tabs 08/27/23 Rx diltiazem HCl 120 mg 120 mg PO DAILY 30 days #30 caps 08/27/23 Rx capsule,extended release 24 hr ferrous sulfate 137 mg (45 mg 137 mg PO DAILY Supplement 08/27/23 08/27/23 History iron) tablet,extended release (Slow Fe) metronidazole 500 mg tablet 500 mg PO TID 7 days #21 tabs 08/27/23 Rx New Prescriptions to Start Prescriptions: apixaban [Eliquis] Roldan,Irfan ciprofloxacin HCl Roldan,Irfan diltiazem HCl Roldan,Irfan metronidazole Roldan,Irfan Allergies Allergy/AdvReac Type Severity Reaction Status Date / Time No Known Allergies Allergy Verified 02/19/23 13:05 Discharge Plan Disposition Patient Disposition: Home, Self-Care Condition: Good Follow up Plan Follow up with: Rome Jimenez MD [Staff Physician] - 2 weeks Prescriptions/Medication Reconciliation: New diltiazem HCl 120 mg Capsule,Extended Release 24hr 120 mg PO DAILY 30 Days Qty: 30 0RF Eliquis 5 mg Tablet 5 mg PO BID 30 Days Qty: 60 0RF metronidazole 500 mg Tablet 500 mg PO TID 7 Days Qty: 21 0RF ciprofloxacin HCl 250 mg tablet 250 mg PO Q12H 5 Days Qty: 10 0RF Continued latanoprost 0.005 % drops 1 drp Eye-Both HS Patient Comments: INSTILL 1 DROP INTO BOTH EYES AT BEDTIME timolol maleate 0.5 % drops 1 drp Eye-Both BID brimonidine 0.2 % drops 1 drp Eye-Both TID Patient Comments: INSTILL 1 DROP INTO BOTH EYES 3 TIMES A DAY Slow Fe 137 mg (45 mg iron) tablet extended release 137 mg PO DAILY Patient Comments: TAKE 1 TABLET BY MOUTH EVERY DAY cholecalciferol (vitamin D3) 25 mcg (1,000 unit) capsule 25 mcg PO DAILY Problem Reconciliation Problems Reviewed?: Yes Patient Discharge Instructions ACTIVITY: Ambulate as tolerated DIET: continue same diet Patient Instructions: Atrial Fibrillation, Hypokalemia Providers Primary Care Provider: Provider,Referral Admit Provider: Christy Montilla Attending Provider: Christy Montilla
--- NOTE | 2023-08-30 15:40 | SW/DCPLANNER ---
Follow up phone call w/ this patient: patient stated that she is feeling better and doing well at home. Patient is aware of her follow up appointments w/ PCP and Cardiology. No further questions/needs at this time.
== END 2023-08-27 17:25 | disposition home or self-care (01) ==
LOC: ER 01:08 → 2ND 02:32
PROVIDERS: Nurse Practitioner Family; Admitting Provider Internal Medicine; Emergency Provider Emergency Medicine; Visit Provider Internal Medicine
DX: I48.91 Unspecified atrial fibrillation (principal); R07.89 Other chest pain; E87.6 Hypokalemia; R03.0 Elevated blood-pressure reading, without diagnosis of hypertension; I24.89 Other forms of acute ischemic heart disease; Z79.899 Other long term (current) drug therapy; Z79.01 Long term (current) use of anticoagulants; K50.90 Crohn's disease, unspecified, without complications
CPT/HCPCS: 36415; 71045; 80053; 81001; 83735; 84132; 84436; 84443; 84484; 85025; 85378; 87086; 93005; 93306; 99291; G0378

== ENCOUNTER 2023-09-09 10:59 | Outpatient (CLI) | payer MEDICARE, SELFPAY ==
[2023-09-09 11:49] LABS: Basophils % 0.3 % (0.1-2.0); Eosinophils # 0.3 K/mm3 (0.0-0.4); Eosinophils % 2.7 % (0.1-12.0); Hemoglobin 10.8 g/dL (12.2-16.2); Lymphocytes # 1.3 K/mm3 (0.7-4.5); Lymphocytes % 12.8 % (10-50); Mean Corpuscular HGB Conc 31.7 g/dL (31.8-35.4); Mean Corpuscular Hemoglobin 26.2 pg (27.0-31.2); Mean Corpuscular Volume 82.6 fl (81-99); Mean Platelet Volume 7.3 fl (7.4-10.4); Monocytes # 0.5 K/mm3 (0.1-1.0); Monocytes % 5.1 % (1.7-9.3); Neutrophils # 7.8 K/mm3 (1.8-7.8); Neutrophils % 79.1 % (37.0-80.0); Platelet Count 607 K/mm3 (142-424); Red Blood Count 4.11 M/mm3 (4.20-5.40); Red Cell Distribution Width 17.7 % (11.5-17.5); White Blood Count 9.9 K/mm3 (4.8-10.8)
[2023-09-09 12:35] LABS: Anion Gap 4.6 mEq/L (5-15); Blood Urea Nitrogen 10 mg/dl (7-17); Carbon Dioxide 37 mmol/L (22.0-30.0); Chloride 102 mmol/L (98-107); Potassium 3.6 mmoL/L (3.5-5.1); Sodium 140 mmol/L (136-145)
[2023-09-09 12:36] LABS: Calcium 8.4 mg/dl (8.4-10.2); Estimated Glomerular Filt Rate 97 ml/min (>60); GFR (African American) 118 ML/MIN (>60); Glucose 98 mg/dl (74-100)
== END 2023-09-09 23:59 ==
LOC: RT 11:00
PROVIDERS: PCP Internal Medicine; Visit Provider Physician Assistant
DX: I10 Essential (primary) hypertension (principal); I48.0 Paroxysmal atrial fibrillation; R53.83 Other fatigue; R60.9 Edema, unspecified; R79.89 Other specified abnormal findings of blood chemistry; R94.31 Abnormal electrocardiogram [ECG] [EKG]; Z87.19 Personal history of other diseases of the digestive system; K21.9 Gastro-esophageal reflux disease without esophagitis
CPT/HCPCS: 36415; 80048; 85025; 93270

== ENCOUNTER 2023-09-13 19:31 | Outpatient (CLI) | payer MEDICARE, SELFPAY ==
[2023-09-13 18:49] LABS: Basophils % 0.3 % (0.1-2.0); Eosinophils # 0.3 K/mm3 (0.0-0.4); Eosinophils % 2.4 % (0.1-12.0); Hematocrit 35.6 % (37.0-47.0); Hemoglobin 11.3 g/dL (12.2-16.2); Lymphocytes # 1.5 K/mm3 (0.7-4.5); Lymphocytes % 13.6 % (10-50); Mean Corpuscular HGB Conc 31.8 g/dL (31.8-35.4); Mean Corpuscular Hemoglobin 26.5 pg (27.0-31.2); Mean Corpuscular Volume 83.2 fl (81-99); Mean Platelet Volume 9.1 fl (7.4-10.4); Monocytes # 0.7 K/mm3 (0.1-1.0); Monocytes % 6.7 % (1.7-9.3); Neutrophils # 8.3 K/mm3 (1.8-7.8); Platelet Count 566 K/mm3 (142-424); Red Blood Count 4.28 M/mm3 (4.20-5.40); Red Cell Distribution Width 17.3 % (11.5-17.5); White Blood Count 10.8 K/mm3 (4.8-10.8)
[2023-09-13 18:54] LABS: Alanine Aminotransferase 19 U/L (12-78); Albumin Level 2.9 g/dl (3.5-5.0); Albumin/Globulin Ratio 0.8 (1.1-1.8); Alkaline Phosphatase 140 U/L (38-126); Anion Gap 7.9 mEq/L (5-15); Aspartate Amino Transferase 27 U/L (14-36); Bilirubin,Total 0.5 mg/dl (0.2-1.3); Blood Urea Nitrogen 12 mg/dl (7-17); Carbon Dioxide 34 mmol/L (22.0-30.0); Chloride 100 mmol/L (98-107); Estimated Glomerular Filt Rate 81 ml/min (>60); GFR (African American) 98 ML/MIN (>60); Globulin 3.5 g/dL (1.3-3.2); Glucose 73 mg/dl (74-100); Potassium 4.9 mmoL/L (3.5-5.1); Sodium 137 mmol/L (136-145); Total Protein,Serum 6.4 g/dl (6.3-8.2)
[2023-09-13 19:00] LABS: C-Reactive Protein 48.8 mg/L (0-4)
[2023-09-13 19:15] LABS: 25-OH Vitamin D, Total 36.9 ng/mL (30-100)
[2023-09-13 19:29] LABS: Erythrocyte Sedimentation Rate 113 mm/hr (0-30)
[2023-09-13 20:15] LABS: Vitamin B12 > 1000 pg/mL (239-931)
== END 2023-09-13 23:59 ==
LOC: LAB.DROPOF 19:32
PROVIDERS: PCP Internal Medicine; Visit Provider Internal Medicine
DX: R53.83 Other fatigue (principal); Z87.19 Personal history of other diseases of the digestive system; E55.9 Vitamin D deficiency, unspecified; R79.89 Other specified abnormal findings of blood chemistry; Z79.899 Other long term (current) drug therapy
CPT/HCPCS: 80053; 82306; 82607; 85025; 85651; 86140

== ENCOUNTER 2023-09-15 11:02 | Outpatient (CLI) | payer MEDICARE, SELFPAY ==
--- NOTE | 2023-09-15 | CA_ITS ---
APPROVED REPORT Exam: Pharmacologic Technologist: [place], Ht: 5 ft 2 in Wt: 115 lbs BSA: 1.51 m2 HR: 67 bpm BP: 187/78 mmHg Rhythm: NSR, nonspecific ST changes Medical History Medications: Ferrous sulfate,,,,, Vit D3,,,,, DilTAZEM,,,,, ElIQUIS,,,,, Metronidazole,,,,, Cardiac Risk Factors: HTN Stress Test Details Test: LEXISCAN HR Resting HR: 66 bpm Max Heart Rate (APMHR): 144 bpm Max HR Achieved: 89 bpm Target HR (85% APMHR): 122 bpm % of APMHR: 62 Recovery HR: 82 bpm BP Resting BP: 187/78 mmHg Max BP: 191/77 mmHg Recovery BP: 179.0/77.0 mmHg ECG Resting ECG: NSR, nonspecific ST changes Stress ECG: No significant ST changes Arrhythmia: PACs and PVCs Clinical Exercise duration: 04:00 min Highest Stage Achieved: Exercise capacity: 1.0 METs Stress ECG Conclusion During lexiscan pt experinced mild SOA, stomach discomfort, headache, and chest heaviness. Ectopy: Occasional PAC and PVC noted. ST changes: None Conclusion: Nondiagnostic Lexiscan stress test due to baseline abnormalities. Myoview images reported separately. Test Summary REST . . . . . . . Sitting REST 05:09 . . 66 . 187/ 78 . . Stage 1 01:00 . . 81 . . . . Stage 2 01:00 . . 86 . 154/ 69 . . Stage 3 01:00 . . 85 . 156/ 76 . . Stage 4 01:00 . . 86 . 157/ 76 . Stop exercise at 04:00 RECOVERY 01:00 . . 82 . . . . RECOVERY 02:00 . . 81 . . . . RECOVERY 03:00 . . 79 . 179/ . . RECOVERY 04:00 . . 78 . 191/ . . RECOVERY 05:00 . . 80 . 191/ 77 . . RECOVERY 06:00 . . 76 . 191/ 77 . . RECOVERY 07:00 . . 72 . 191/ 77 . . RECOVERY 08:00 . . 72 . 191/ . . RECOVERY 08:26 . . 75 . 179/ 81 . . Electronically signed by : Dedra Anton MD 09/19/2023 02:01:21
--- NOTE | 2023-09-15 11:02 | NM_ITS ---
APPROVED REPORT Exam: Nuclear Stress Test Indication: HTN, FM HX, A-FIB, ELEVATED TRIPONIN, C.P., PALPITATIONS, FATIGUE Patient Location: Outpatient Stress Tech: [place] Tech:Letty Monroe IMELDACipriano RT (R)(N)(M) Ht: 5 ft 2 in Wt: 115 lbs Bra Size: C HR: 66 bpm BP: 187/78 mmHg BSA: 1.51 m2 TID: 1.09 BMI: 21.0 History: Hypertension, chest pain, palpitations, atrial fibrillation, family history Procedure: Patient received 0.4 mg of intravenous Lexiscan, resting heart rate 66 bpm, resting blood pressure 187/78 mmHg, with Lexiscan maximum heart rate achieved was 89 bpm which is % of the maximum predicted heart rate and blood pressure was 191/71 mmHg. With Lexiscan, patient denied any complaint of chest pain. Cardiac Stress and Resting SPECT Images: Cardiac Stress and Resting SPECT images were obtained using technetium 99m Myoview 32.8 mCi stress and 10.72 mCi at rest. Resting and stress imaging in supine and prone positions demonstrate no evidence of fixed or reversible perfusion defects. Gated imaging demonstrates normal global and regional LV systolic function. LVEF is calculated at 56%. Conclusion: No evidence of fixed or reversible perfusion defects. Gated imaging demonstrates normal global and regional LV systolic function. LVEF is calculated at 56%. Electronically signed by : Dedra Anton MD 09/19/2023 02:02:57
[2023-09-15] MEDS: SODIUM CHLORIDE 0.9% 10ML SYR (RAD ONLY) 10 ML IV ×2 (11:30→13:08)
[2023-09-15] MEDS: REGADENOSON 0.4MG/5ML SYRINGE 0.400000000000000022 MG IV (13:08)
[2023-09-15] MEDS: ISOTOPE MYOVIEW (PER STUDY) 1 DOSE IV (13:08)
== END 2023-09-15 23:59 ==
LOC: RAD 11:02
PROVIDERS: PCP Internal Medicine; Visit Provider Physician Assistant
DX: I10 Essential (primary) hypertension (principal); I48.0 Paroxysmal atrial fibrillation; R53.83 Other fatigue; R79.89 Other specified abnormal findings of blood chemistry; R94.31 Abnormal electrocardiogram [ECG] [EKG]; Z87.19 Personal history of other diseases of the digestive system
CPT/HCPCS: 78452; 93017; 93018; A9502; J0280; J2785

== ENCOUNTER 2023-09-17 19:32 | Outpatient (CLI) | payer MEDICARE, SELFPAY ==
[2023-09-17 19:14] LABS: Iron 37 ug/dL (37-170)
[2023-09-17 19:21] LABS: Folate > 20.00 ng/mL
[2023-09-17 19:24] LABS: Total Iron Binding Capacity 162 ug/dL (265-497)
[2023-09-17 19:50] LABS: Ferritin 834 ng/ml (11.1-264)
== END 2023-09-17 23:59 ==
LOC: LAB.DROPOF 19:33
PROVIDERS: PCP Internal Medicine; Visit Provider Internal Medicine
DX: R53.83 Other fatigue; D50.9 Iron deficiency anemia, unspecified; Z79.899 Other long term (current) drug therapy; D64.9 Anemia, unspecified
CPT/HCPCS: 82728; 82746; 83540; 83550

== ENCOUNTER 2023-09-29 07:56 | Outpatient (CLI) | payer MEDICARE, SELFPAY ==
--- NOTE | 2023-09-29 07:56 | MM_ITS ---
PROCEDURE INFORMATION: Exam: MG Bilateral Screening 3D Mammography Exam date and time: 09/29/2023 7:49 AM Age: 77 years old Clinical indication: Screening examination TECHNIQUE: Imaging protocol: Bilateral Screening tomosynthesis and 2D mammography including computer-aided detection (CAD) when performed. COMPARISON: No relevant prior studies available. FINDINGS: MAMMOGRAPHY: Breast composition: There are scattered areas of fibroglandular density. Mass: Questionable 0.6 cm mass in the anterior right medial breast Architectural distortion: None. Calcifications: No suspicious calcifications. Asymmetric density: None. Skin thickening: None. Axillary adenopathy: None. IMPRESSION: Patient to be recalled for spot compression views of the right breast in the CC and MLO projections, a full 90 degree lateral view, and right breast ultrasound for further evaluation of a right breast mass. ASSESSMENT: BI-RADS Category 0: Incomplete- Need Additional Imaging Evaluation and/or Prior Mammograms for Comparison.
== END 2023-09-29 23:59 ==
PROVIDERS: PCP Internal Medicine; Visit Provider Internal Medicine
DX: Z12.31 Encounter for screening mammogram for malignant neoplasm of breast (principal)
CPT/HCPCS: 77063; 77067

== ENCOUNTER 2023-10-05 11:27 | Outpatient (CLI) | payer MEDICARE, SELFPAY ==
[2023-10-05 12:14] LABS: Basophils # 0.1 K/mm3 (0-0.2); Basophils % 0.7 % (0.1-2.0); Eosinophils # 0.3 K/mm3 (0.0-0.4); Eosinophils % 3.8 % (0.1-12.0); Hemoglobin 10.7 g/dL (12.2-16.2); Lymphocytes # 1.3 K/mm3 (0.7-4.5); Lymphocytes % 15.7 % (10-50); Mean Corpuscular HGB Conc 31.4 g/dL (31.8-35.4); Mean Corpuscular Hemoglobin 26.7 pg (27.0-31.2); Mean Corpuscular Volume 85.2 fl (81-99); Mean Platelet Volume 7.5 fl (7.4-10.4); Monocytes # 0.4 K/mm3 (0.1-1.0); Monocytes % 4.7 % (1.7-9.3); Neutrophils # 6.1 K/mm3 (1.8-7.8); Neutrophils % 75.1 % (37.0-80.0); Platelet Count 646 K/mm3 (142-424); Red Blood Count 3.99 M/mm3 (4.20-5.40); Red Cell Distribution Width 16.2 % (11.5-17.5); Reticulocyte % (Auto) 2.3 % (0.9-3.2); White Blood Count 8.1 K/mm3 (4.8-10.8)
[2023-10-05 12:49] LABS: Iron 32 ug/dL (37-170)
[2023-10-05 13:06] LABS: Total Iron Binding Capacity 172 ug/dL (265-497)
[2023-10-05 14:16] LABS: Ferritin 575 ng/ml (11.1-264)
[2023-10-05 14:17] LABS: Lactate Dehydrogenase 148 U/L (313-618)
[2023-10-06 11:21] LABS: Haptoglobin 351 mg/dL (42-346)
[2023-10-07 11:38] LABS: Peripheral Smear Review Scanned Result
== END 2023-10-05 23:59 ==
LOC: LAB 11:28
PROVIDERS: PCP Internal Medicine; Visit Provider Internal Medicine Medical Oncology
DX: D64.89 Other specified anemias (principal); D69.6 Thrombocytopenia, unspecified
CPT/HCPCS: 36415; 82728; 83010; 83540; 83550; 83615; 85025; 85044; 86880

== ENCOUNTER 2023-10-12 12:27 | Day surgery (SDC) | payer MEDICARE, SELFPAY ==
[2023-10-12] VITALS (9 sets, daily range): BP systolic 133–154; BP diastolic 62–77; PULSE 64–75; RESP 14–18; TEMP 36.6–36.7; O2SAT 96–100; BMI 21.2
[2023-10-12] MEDS: LACTATED RINGERS 1000ML 1,000 ML 100 ML IV (12:40)
--- NOTE | 2023-10-12 12:51 | P.PCN_ITS ---
Procedure: Date: 10/12/23 Patient Date of :: 1945 Procedure Performed:: Partial colonoscopy with a biopsy and polypectomy Indications:: Anemia Note: The patient has chronic anemia. She also reports a questionable history of Crohn's for which she is no longer undergoing therapy. Performing Provider:: Kalen Baca MD Referring Provider:: . Sedation:: Monitored anesthesia care Procedure:: After informed consent was obtained the patient was taken to the endoscopy suite. Sedation ensued after the patient was transferred to the left lateral decubitus position. Pulse, blood pressure, and oxygen saturation were monitored throughout the procedure. Digital rectal exam revealed no significant abnormality. The colonoscope was placed in position. The colon was evaluated to 65 cm at which point a friable partially-obstructing lesion consistent with inflammation versus neoplasm was noted. Advancement beyond this point was deemed unwarranted/unsafe. The colonoscope was carefully removed and the patient was transferred to recovery in stable condition. Please see findings and specimens below for detail. Findings:: Large complex firm hemorrhoidal tags Hemorrhoidal cushions Bowel preparation moderate Profound tortuosity between 15 and 25 cm Large complex friable mass-like lesion consistent with inflammatory versus neoplastic change at 65 cm. The lesion was semicircumferential and partially- obstructing. Advancement beyond this point was not deemed safe. Complex lobulated polyp at 35 cm Friable mucosa at 20 cm (point of maximal tortuosity/spasticity leading to difficulty in complete visualization) Lobulated polyp at 7 cm Specimens:: Multiple biopsies of lesion at 65 cm Complex lobulated polyp at 35 cm (hot snare) Multiple biopsies of friable mucosa at 20 cm Polyp at 7 cm (hot snare) Recommendations:: Follow-up pathology Consider gastroenterology consultation (pending pathologic results) Consider CT scan Consider barium enema Complications:: No immediate Estimated blood obtained (mL): 1 Comment:: Risks and benefits of esophagogastroduodenoscopy also discussed with the patient prior to colonoscopy. The patient wished to hold off for now and think about it . Colonoscopy Component Colonoscopy Component Was a colonoscopy performed during today's procedure?: Yes Recommended follow up colonoscopy of at least 10 years?: No If no, follow up colonoscopy recommended in ___ years?: (See above) Reason for not recommending >/= 10 yr follow-up interval?: (See above)
--- NOTE | 2023-10-12 13:00 | EXP.ANES.CKL ---
[facility] Disclaimer: The information contained in this section may have been updated after the patient was seen, as this information can be updated by other users. Medical History Cataract Hx of cataract Hx of Crohn's disease I really question this diagnosis although it would certainly explain much of what she is experiencing. However because she has not been on any medications, has not had any follow-up evaluations for over 15 years I does wonder whether or not something else is going on here.. Will send her to GI for colonoscopy evaluation and suggested treatment. Elevated troponin Acute hypokalemia Atrial fibrillation with rapid ventricular response Elevated BP without diagnosis of hypertension Preop examination Acute Crohn's disease Surgical History History of cholecystectomy Family History Other Family history of allergies Family history of cancer Family history of hypertension Social History Smoking Status: Never smoker alcohol intake: never substance use type: denies use current occupational status: retired Travel in the last 8 weeks: None household members: family housing: house [facility] Anesthesia Checklist Patient Identification Patient Identification: Arm Band Structural Data Admitted From: Home Planned Operative Procedure/s: Colonoscopy Consent for Planned Operative Procedure(s) Verified: Yes Verified Documents: Surgical Consent and History and Physical NPO Status Verified Time NPO: 00:00 Additional verifications Anesthesia Reactions: No Airway Assessment Mallampati Score:: Class II C-Spine Mobility Assessed: Yes TMJ Mobility Assessed: Yes Dentition: Edentulous Neurological Assessment Level of Consciousness: Awake and Alert Anesthesia Plan Anesthesia Risk discussed: Yes Anesthesia Plan: Verified ASA Class: III Anesthesia Type: MAC
== END 2023-10-12 15:55 | disposition home or self-care (01) ==
PROVIDERS: PCP Internal Medicine; Visit Provider Surgery
PROC: 0DJD8ZZ Inspection of Lower Intestinal Tract, Via Natural or Artificial Opening Endoscopic (ICD-10-PCS; CPT 45385; principal; 2023-10-12 14:00)
DX: D64.9 Anemia, unspecified (principal); K64.4 Residual hemorrhoidal skin tags; K63.89 Other specified diseases of intestine; D12.5 Benign neoplasm of sigmoid colon; D12.8 Benign neoplasm of rectum
CPT/HCPCS: 45385; 88305; 88312; J2704

== ENCOUNTER 2023-10-20 08:42 | Outpatient (CLI) | payer MEDICARE, SELFPAY ==
--- NOTE | 2023-10-20 08:42 | XR_ITS ---
FINAL REPORT TECHNIQUE: Bone densitometry calculations of the lumbar spine and left hip were obtained. CLINICAL HISTORY: osteoporosis FINDINGS: Using L1-4, the bone mineral density of the spine is 0.791 g/cm2, corresponding to T-score of -2.3. Using the left hip, the bone mineral density of the femoral neck is 0.520 g/cm2, corresponding to a T-score of -3.0. Using the right hip, the bone mineral density of the femoral neck is 0.584 g/cm2, corresponding to a T-score of -2.4. NOTE: T-score: Standard deviation compared with peak bone mass of young adult mean. *Following the recommendations of the International Society of Bone densitometry, classification of hip BMD is based on the lower of two T-scores; total hip or femoral neck. IMPRESSION: Diminished bone mineral density consistent with osteoporosis. FRAX was not reported because some of the T-scores are at or below -2.5. Reviewed, Interpreted and Dictated by Lasha Samson MD Transcribed by Stacey Carvajal Authenticated and [facility]
[2023-10-20 09:34] LABS: Blood Urea Nitrogen 14 mg/dl (7-17); Estimated Glomerular Filt Rate 81 ml/min (>60); GFR (African American) 98 ML/MIN (>60)
--- NOTE | 2023-10-20 12:49 | MR_ITS ---
FINAL REPORT CLINICAL HISTORY: TIA 10ml prohance injected COMPARISON: None FINDINGS: Multiplanar MR imaging of the brain was performed without and with contrast. There is no evidence of intracranial hemorrhage or mass. Moderate global atrophy is present. There is extensive abnormal signal in the deep white matter bilaterally. No abnormal extra-axial fluid collection is seen. There is no evidence of shift of the midline structures. The posterior fossa and brainstem have an unremarkable appearance. No area of abnormal restricted diffusion is identified. No abnormal contrast enhancement is seen. Normal major vessel vascular flow voids are noted. There is lobular mucoperiosteal thickening in the maxillary sinuses bilaterally consistent with chronic sinusitis. IMPRESSION: Moderate global atrophy and extensive abnormal signal in the deep white matter most compatible with moderate to severe changes of chronic ischemic/gliotic microvascular disease. Lobular mucoperiosteal thickening in the maxillary sinuses consistent with chronic sinusitis. Reviewed, Interpreted and Dictated by Lasha Samson MD Transcribed by Betina Wilkinson Authenticated and [facility]
[2023-10-20] MEDS: SODIUM CHLORIDE 0.9% 10ML SYR (RAD ONLY) 10 ML IV (13:32)
[2023-10-20] MEDS: GADOTERIDOL INJ 17ML SYRINGE 10 ML IV (13:32)
== END 2023-10-20 23:59 ==
LOC: RAD 08:42
PROVIDERS: PCP Internal Medicine; Visit Provider Internal Medicine
DX: M81.0 Age-related osteoporosis without current pathological fracture (principal); R53.83 Other fatigue; Z86.73 Personal history of transient ischemic attack (TIA), and cerebral infarction without residual deficits
CPT/HCPCS: 36415; 70553; 77080; 82565; 84520; A9576

== ENCOUNTER 2024-09-25 13:55 | Outpatient (CLI) | payer MEDICARE, SELFPAY ==
[2024-09-25 18:57] LABS: Basophils # 0.1 K/mm3 (0-0.2); Basophils % 1.1 % (0.1-2.0); Eosinophils # 0.3 K/mm3 (0.0-0.4); Eosinophils % 3.5 % (0.1-12.0); Hematocrit 38.2 % (37.0-47.0); Lymphocytes # 1.8 K/mm3 (0.7-4.5); Lymphocytes % 22.1 % (10-50); Mean Corpuscular HGB Conc 31.4 g/dL (31.8-35.4); Mean Corpuscular Hemoglobin 28.1 pg (27.0-31.2); Mean Corpuscular Volume 89.5 fl (81-99); Mean Platelet Volume 10.9 fl (7.4-10.4); Monocytes # 0.6 K/mm3 (0.1-1.0); Monocytes % 7.2 % (1.7-9.3); Neutrophils # 5.3 K/mm3 (1.8-7.8); Platelet Count 268 K/mm3 (142-424); Red Blood Count 4.27 M/mm3 (4.20-5.40); Red Cell Distribution Width 13.2 % (11.5-17.5)
[2024-09-25 20:34] LABS: Albumin Level 4.6 g/dl (3.5-5.0); Chloride 110 mmol/L (98-107); Potassium 5.1 mmoL/L (3.5-5.1); Sodium 137 mmol/L (136-145)
[2024-09-25 20:36] LABS: Blood Urea Nitrogen 22 mg/dl (7-17); Estimated Glomerular Filt Rate 34 ml/min (>60); GFR (African American) 41 ML/MIN (>60)
[2024-09-25 20:37] LABS: Alanine Aminotransferase 29 U/L (12-78); Albumin/Globulin Ratio 1.5 (1.1-1.8); Alkaline Phosphatase 180 U/L (38-126); Anion Gap 11.1 mEq/L (5-15); Aspartate Amino Transferase 37 U/L (14-36); Bilirubin,Total 0.5 mg/dl (0.2-1.3); Carbon Dioxide 21 mmol/L (22.0-30.0); Globulin 3.1 g/dL (1.3-3.2); Glucose 88 mg/dl (74-100); Total Protein,Serum 7.7 g/dl (6.3-8.2)
[2024-09-25 21:56] LABS: 25-OH Vitamin D, Total 41.3 ng/mL (30-100)
[2024-09-25 22:01] LABS: Hemoglobin A1C 5.2 % (4.0-6.0)
== END 2024-09-25 23:59 | disposition home or self-care (01) ==
LOC: LAB.DROPOF 09-27 12:54
PROVIDERS: PCP Internal Medicine; Visit Provider Internal Medicine
DX: D50.0 Iron deficiency anemia secondary to blood loss (chronic) (principal); I10 Essential (primary) hypertension; I48.0 Paroxysmal atrial fibrillation; K50.90 Crohn's disease, unspecified, without complications; E44.0 Moderate protein-calorie malnutrition; Z13.1 Encounter for screening for diabetes mellitus
CPT/HCPCS: 80053; 82306; 83036; 85025

== ENCOUNTER 2024-11-20 11:37 | Outpatient (CLI) | payer MEDICARE, SELFPAY ==
--- NOTE | 2024-11-20 11:40 | XR_ITS ---
FINAL REPORT CLINICAL HISTORY: Hand pain - pt had a stroke less than a year ago, since the stroke she has had pain in her right hand. pt just began having pain in her left hand recently. COMPARISON: None FINDINGS: Two views of the right hand were obtained. There is no acute fracture or dislocation. There is mild to moderate DIP and PIP joint space narrowing. Mild hypertrophic changes are noted of the basilar joint. The bones are osteopenic. There is no acute soft tissue abnormality. IMPRESSION: Findings consistent with osteoarthritis. Reviewed, Interpreted and Dictated by Lasha Samson MD Transcribed by Sheela Ho Authenticated and [facility]
--- NOTE | 2024-11-20 11:40 | XR_ITS ---
FINAL REPORT CLINICAL HISTORY: Hand pain - pt had a stroke less than a year ago, since the stroke she has had pain in her right hand. pt just began having pain in her left hand recently. COMPARISON: None FINDINGS: Two views of the left hand were obtained. There is no acute fracture or dislocation. There is mild to moderate DIP and PIP joint space narrowing. Mild hypertrophic changes are noted of the basilar joint. The bones are osteopenic. There is no acute soft tissue abnormality. IMPRESSION: Findings consistent with osteoarthritis. Reviewed, Interpreted and Dictated by Lasha Samson MD Transcribed by Sheela Ho Authenticated and [facility]
[2024-11-20 13:25] LABS: Basophils # 0.1 K/mm3 (0-0.2); Eosinophils # 0.5 Kmm3 (0.0-0.4); Eosinophils % 7.1 % (0.1-12.0); Hematocrit 36.4 % (37.0-47.0); Hemoglobin 11.5 g/dL (12.2-16.2); Lymphocytes # 1.5 K/mm3 (0.7-4.5); Lymphocytes % 20.8 % (10-50); Mean Corpuscular HGB Conc 31.6 g/dL (31.8-35.4); Mean Corpuscular Hemoglobin 28.8 pg (27.0-31.2); Mean Corpuscular Volume 91.2 fl (81-99); Mean Platelet Volume 10.7 fl (7.4-10.4); Monocytes # 0.6 K/mm3 (0.1-1.0); Monocytes % 8.4 % (1.7-9.3); Neutrophils # 4.5 K/mm3 (1.8-7.8); Neutrophils % 62.4 % (37.0-80.0); Nucleated Red Blood Cells # 0 10^3/uL; Nucleated Red Blood Cells % 0 %; Platelet Count 230 K/mm3 (142-424); Red Blood Count 3.99 M/mm3 (4.20-5.40); Red Cell Distribution Width 13.8 % (11.5-17.5); Red Cell Distribution Width-SD 46.8 fL; White Blood Count 7.2 K/mm3 (4.8-10.8)
[2024-11-20 13:53] LABS: Albumin Level 3.8 g/dl (3.5-5.0); Chloride 109 mmol/L (98-107); Potassium 5.2 mmoL/L (3.5-5.1); Sodium 140 mmol/L (136-145)
[2024-11-20 13:56] LABS: Alanine Aminotransferase 24 U/L (12-78); Albumin/Globulin Ratio 1.3 (1.1-1.8); Alkaline Phosphatase 132 U/L (38-126); Anion Gap 11.2 mEq/L (5-15); Aspartate Amino Transferase 31 U/L (14-36); Bilirubin,Total 0.4 mg/dl (0.2-1.3); Blood Urea Nitrogen 24 mg/dl (7-17); Carbon Dioxide 25 mmol/L (22.0-30.0); Estimated Glomerular Filt Rate 40 ml/min (>60); GFR (African American) 48 ML/MIN (>60); Total Protein,Serum 6.8 g/dl (6.3-8.2)
[2024-11-20 13:57] LABS: Calcium 9.3 mg/dl (8.4-10.2); Glucose 89 mg/dl (74-100)
== END 2024-11-20 23:59 | disposition home or self-care (01) ==
LOC: RAD 11:38
PROVIDERS: PCP Internal Medicine; Visit Provider Internal Medicine
DX: M79.641 Pain in right hand (principal); M79.642 Pain in left hand; D64.9 Anemia, unspecified; N17.9 Acute kidney failure, unspecified
CPT/HCPCS: 73120; 80053; 85025

== ENCOUNTER 2024-11-26 17:54 | Emergency (ER) | payer MEDICARE, SELFPAY ==
--- NOTE | 2024-11-26 18:03 | PC.NURSE ---
fingerstick glucose 1800 - 108
--- OUTSIDE RECORDS SUMMARY | 2024-11-26 18:05 | XMS_ITS | Data Portability ---
Author Organization [place] - [facility] - [place] & [facility] ADMIN Address [address] [place] [id number] Assessment Encounter Date Assessment Date Assessment LastModified by Organization Details LastModified Time 11/01/2023 11/01/2023 78-year-old female with: 1) Colon mass: previous colonoscopy was unable to be completed. -Discussed with Dr. Cárdenas. Will schedule Patient for colonoscopy to attempt further evaluation. Patient Previously prepped with Clenpiq, this preparation was not adequate. Patient will need higher volume prep. - Will check tumor markers per below - Will order labs per below to asses for infectious etiology, functional disorders and organic disorders. -Patient educated that looser stools are permissive. If patient begins to experience constipation, start Miralax 1 capful in 8oz of liquid once daily to help facilitate adequate bowel movements -Discussed low-fiber diet - If abdominal pain, lack of bowel movements, or lack of flatulence occurs go to ER for evaluation. 2) Fatigue, anemia: Labs on patient portal 10/05/23 revealed hemoglobin 10.7, MCV 26.7, ferritin 575, iron 32. Will obtain further lab workup today. Will refer to Hematology for management. -Will order EGD and colonoscopy (per above) for further evaluation of bleeding -Will check labs per below -Will refer to hematology -Educated patient on dietary sources of iron such as: fortified cereals, red meats, nuts, prune juice, sunflower seeds, liver, almond, dried beans, baked beans, chickpeas, lentils, red beans, white beans, pork and spinach. 3) Reported Crohn's disease: colonoscopy per above for assessment. The patient reports she has never been on medication for this. F/u 2-4 weeks after EGD/Colon [email or web address] Not available 11/01/2023 13:24:24 Plan of Treatment Reminders Order Date Submit Date Provider Last Modified By Organization Details Last Modified Time Details Appointments None recorded. Lab gastrointes tinal pathogens DNA + RNA panel, ANTONIO+non-pro be, stool 2023 024 [email or web address] 64 [facility], [address], [address], [place], [address], 4 10:24:22 Strongyloid es sp Ab, QL, serum 2023 024 CRISTINA [facility], [address], [address], [place], [address], 4 16:14:06 O&P (ova & parasites), stool 2023 024 [email or web address] 64 [facility], [address], [address], [place], [address], 4 10:24:23 pancreatic elastase, quant, stool 2023 024 [email or web address] 64 [facility], [address], [address], [place], [address], 4 10:24:23 fat panel, stool 2023 024 [email or web address] 64 [facility], [address], [address], [place], [address], 4 10:24:23 H pylori Ag, qual immunoassay , stool 2023 024 [email or web address] 64 [facility], [address], [address], [place], [address], 4 10:24:23 TSH + free T4, serum 2023 024 CRISTINA [facility], [address], [address], [place], [address], 4 16:14:00 C reactive protein, QN, serum or plasma 2023 024 CRISTINA [facility], [address], [address], [place], [address], 4 16:14:07 celiac disease IgA + HLA typing + serology panel, blood or tissue 2023 024 CRISTINA [facility], [address], [address], [place], [address], 4 16:13:58 calprotecti n, stool 2023 024 [email or web address] [facility], [address], [address], [place], [address], 4 10:24:23 afp (alpha-feto protein) tumor marker, serum or plasma 2023 024 CRISTINA [facility], [address], [address], [place], [address], 4 16:14:04 carcinoembr yonic Ag, quant, serum or plasma 2023 024 CRISTINA [facility], [address], [address], [place], [address], 4 16:14:03 cancer Ag 19-9, serum or plasma 2023 024 CRISTINA [facility], [address], [address], [place], [address], 4 16:14:05 CBC w/ auto diff 2023 024 CRISTINA [facility], [address], [address], [place], [address], 4 16:14:01 CMP, serum or plasma 2023 024 CRISTINA [facility], [address], [address], [place], [address], 4 16:14:02 iron + TIBC + ferritin, serum 2023 024 CRISTINA [facility], [address], [address], [place], [address], 4 16:13:59 Referral None recorded. Procedures None recorded. Surgeries None recorded. Imaging None recorded. Medication Orders None recorded. Patient TargetsNo targets recorded. Patient InstructionsNo instructions recorded. Reason for Referral None Reported. Results Created Date Observation Date Name Description Value Unit Range Abnormal Flag Note LastModifiedBy Organization Detail LastModifiedTime 11/01/19 24 11/02/2023 VIKAS C DISEA SE COMPR EHENS RIKY deamidated gliadin abs, IgA 8 units 0-19 Negat riky 0 - 19 Weak Posit riky 20 - 30 Moder ate to Stron g Posit riky >30 Not Available [facility] [address] [facility], [place], [address], 11/03/2023 16:13:58 11/01/19 24 11/02/2023 VIKAS C DISEA SE COMPR EHENS RIKY deamidated gliadin abs, IgG 2 units 0-19 Negat riky 0 - 19 Weak Posit riky 20 - 30 Moder ate to Stron g Posit riky >30 Not Available [facility] [address] [facility], [place], [address], 11/03/2023 16:13:58 11/01/19 24 11/02/2023 VIKAS C DISEA SE COMPR EHENS RIKY T-transgluta minase (ttg) IgA <2 U/mL 0-3 Negat riky 0 - 3 Weak Posit riky 4 - 10 Posit riky >10 Tissu e Trans gluta foster e (tTG) has been ident ified as the endom ysial antig en. Studi es have demon str- ated that endom ysial IgA antib odies have over 99% speci ficit y for glute n sensi tive enter opath y. Not Available [facility] [address] [facility], [place], [address], 11/03/2023 16:13:58 11/01/19 24 11/02/2023 VIKAS C DISEA SE COMPR EHENS RIKY T-transgluta minase (ttg) IgG 18 U/mL 0-5 above high normal Negat riky 0 - 5 Weak Posit riky 6 - 9 Posit riky >9 Not Available [facility] [address] [facility], [place], [address], 11/03/2023 16:13:58 11/01/19 24 11/02/2023 VIKAS C DISEA SE COMPR EHENS RIKY endomysial antibody IgA NEGATI VE negati ve Not Available [facility] [address] [facility], [place], [address], 11/03/2023 16:13:58 11/01/19 24 11/02/2023 VIKAS C DISEA SE COMPR EHENS RIKY immunoglobul in A, qn, serum 286 mg/dL 64-422 Not Available [facility] [address] [place], [address], 11/03/2023 16:13:58 11/01/19 24 11/02/2023 FE+TI BC+FE R iron bind.cap.(TI BC) 153 ug/dL 250-45 0 below low normal Not Available [facility] [address] [place], [address], 11/03/2023 16:13:59 11/01/19 24 11/02/2023 FE+TI BC+FE R UIBC 137 ug/dL 118-36 9 Not Available [facility] [address] [place], [address], 11/03/2023 16:13:59 11/01/19 24 11/02/2023 FE+TI BC+FE R iron 16 ug/dL 27-139 below low normal Not Available [facility] [address] [place], [address], 11/03/2023 16:13:59 11/01/19 24 11/02/2023 FE+TI BC+FE R iron saturation 10 % 15-55 below low normal Not Available [facility] [address] [place], [address], 11/03/2023 16:13:59 11/01/19 24 11/02/2023 FE+TI BC+FE R ferritin 620 NG/mL 15-150 above high normal Not Available [facility] [address] [place], [address], 11/03/2023 16:13:59 11/01/19 24 11/02/2023 TSH+F REE T4 TSH 0.846 uIU/m L 0.450- 4.500 Not Available [facility] [address] [place], [address], 11/03/2023 16:14:00 11/01/19 24 11/02/2023 TSH+F REE T4 T4,free(dire ct) 1.16 NG/dL 0.82-1 .77 Not Available [facility] [address] [place], [address], 11/03/2023 16:14:00 11/01/19 24 11/02/2023 CBC WITH DIFFE RENTI AL/PL ATELE T WBC 10.0 x10e3 /uL 3.4-10 .8 Not Available [facility] [address] [place], [address], 11/03/2023 16:14:01 11/01/19 24 11/02/2023 CBC WITH DIFFE RENTI AL/PL ATELE T RBC 4.31 x10e6 /uL 3.77-5 .28 Not Available [facility] [address] [place], [address], 11/03/2023 16:14:01 11/01/19 24 11/02/2023 CBC WITH DIFFE RENTI AL/PL ATELE T hemoglobin 10.7 g/dL 11.1-1 5.9 below low normal Not Available [facility] [address] [place], [address], 11/03/2023 16:14:01 11/01/19 24 11/02/2023 CBC WITH DIFFE RENTI AL/PL ATELE T hematocrit 35.5 % 34.0-4 6.6 Not Available [facility] [address] [place], [address], 11/03/2023 16:14:01 11/01/19 24 11/02/2023 CBC WITH DIFFE RENTI AL/PL ATELE T MCV 82 fL 79-97 Not Available [facility] [address] [place], [address], 11/03/2023 16:14:01 11/01/19 24 11/02/2023 CBC WITH DIFFE RENTI AL/PL ATELE T MCH 24.8 pg 26.6-3 3.0 below low normal Not Available [facility] [address] [place], [address], 11/03/2023 16:14:01 11/01/19 24 11/02/2023 CBC WITH DIFFE RENTI AL/PL ATELE T MCHC 30.1 g/dL 31.5-3 5.7 below low normal Not Available [facility] [address] [place], [address], 11/03/2023 16:14:01 11/01/19 24 11/02/2023 CBC WITH DIFFE RENTI AL/PL ATELE T RDW 14.3 % 11.7-1 5.4 Not Available [facility] [address] [facility], [place], [address], 11/03/2023 16:14:01 11/01/19 24 11/02/2023 CBC WITH DIFFE RENTI AL/PL ATELE T platelets 450 x10e3 /uL 150-45 0 Not Available [facility] [address] [facility], [place], [address], 11/03/2023 16:14:01 11/01/19 24 11/02/2023 CBC WITH DIFFE RENTI AL/PL ATELE T neutrophils 79 % not estab. Not Available [facility] [address] [facility], [place], [address], 11/03/2023 16:14:01 11/01/19 24 11/02/2023 CBC WITH DIFFE RENTI AL/PL ATELE T lymphs 13 % not estab. Not Available [facility] [address] [facility], [place], [address], 11/03/2023 16:14:01 11/01/19 24 11/02/2023 CBC WITH DIFFE RENTI AL/PL ATELE T monocytes 6 % not estab. Not Available [facility] [address] [facility], [place], [address], 11/03/2023 16:14:01 11/01/19 24 11/02/2023 CBC WITH DIFFE RENTI AL/PL ATELE T eos 2 % not estab. Not Available [facility] [address] [facility], [place], [address], 11/03/2023 16:14:01 11/01/19 24 11/02/2023 CBC WITH DIFFE RENTI AL/PL ATELE T basos 0 % not estab. Not Available [facility] [address] [facility], [place], [address], 11/03/2023 16:14:01 11/01/19 24 11/02/2023 CBC WITH DIFFE RENTI AL/PL ATELE T immature cells COMMUNICATIONS ATTENDANT Not Available [facility] [address] [facility], [place], [address], 11/03/2023 16:14:01 11/01/19 24 11/02/2023 CBC WITH DIFFE RENTI AL/PL ATELE T neutrophils (absolute) 7.9 x10e3 /uL 1.4-7. 0 above high normal Not Available [facility] [address] [facility], [place], [address], 11/03/2023 16:14:01 11/01/19 24 11/02/2023 CBC WITH DIFFE RENTI AL/PL ATELE T lymphs (absolute) 1.3 x10e3 /uL 0.7-3. 1 Not Available [facility] [address] [facility], [place], [address], 11/03/2023 16:14:01 11/01/19 24 11/02/2023 CBC WITH DIFFE RENTI AL/PL ATELE T monocytes(ab solute) 0.6 x10e3 /uL 0.1-0. 9 Not Available [facility] [address] [place], [address], 11/03/2023 16:14:01 11/01/19 24 11/02/2023 CBC WITH DIFFE RENTI AL/PL ATELE T eos (absolute) 0.2 x10e3 /uL 0.0-0. 4 Not Available [facility] [address] [facility], [place], [address], 11/03/2023 16:14:01 11/01/19 24 11/02/2023 CBC WITH DIFFE RENTI AL/PL ATELE T baso (absolute) 0.0 x10e3 /uL 0.0-0. 2 Not Available [facility] [address] [facility], [place], [address], 11/03/2023 16:14:01 11/01/19 24 11/02/2023 CBC WITH DIFFE RENTI AL/PL ATELE T immature granulocytes 0 % not estab. Not Available [facility] [address] [facility], [place], [address], 11/03/2023 16:14:01 11/01/19 24 11/02/2023 CBC WITH DIFFE RENTI AL/PL ATELE T immature grans (abs) 0.0 x10e3 /uL 0.0-0. 1 Not Available [facility] [address] [facility], [place], [address], 11/03/2023 16:14:01 11/01/19 24 11/02/2023 CBC WITH DIFFE RENTI AL/PL ATELE T NRBC COMMUNICATIONS ATTENDANT Not Available [facility] [address] [facility], [place], [address], 11/03/2023 16:14:01 11/01/19 24 11/02/2023 CBC WITH DIFFE RENTI AL/PL ATELE T hematology comments: COMMUNICATIONS ATTENDANT Not Available [facility] [address] [facility], [place], [address], 11/03/2023 16:14:01 11/01/19 24 11/02/2023 COMP. METAB OLIC PANEL (14) glucose 83 mg/dL 70-99 Not Available [facility] [address] [place], [address], 11/03/2023 16:14:02 11/01/19 24 11/02/2023 COMP. METAB OLIC PANEL (14) BUN 12 mg/dL 8-27 Not Available [facility] [address] [place], [address], 11/03/2023 16:14:02 11/01/19 24 11/02/2023 COMP. METAB OLIC PANEL (14) creatinine 0.54 mg/dL 0.57-1 .00 below low normal Not Available [facility] [address] [facility] [place], [address], 11/03/2023 16:14:02 11/01/19 24 11/02/2023 COMP. METAB OLIC PANEL (14) eGFR 95 mL/mi n/1.7 3 >59 Not Available [facility] [address] [facility] [place], [address], 11/03/2023 16:14:02 11/01/19 24 11/02/2023 COMP. METAB OLIC PANEL (14) BUN/creatini ne ratio 22 12-28 Not Available [facility] [address] [facility], [place], [address], 11/03/2023 16:14:02 11/01/19 24 11/02/2023 COMP. METAB OLIC PANEL (14) sodium 140 mmol/ L 134-14 4 Not Available [facility] [address] [facility] [place], [address], 11/03/2023 16:14:02 11/01/19 24 11/02/2023 COMP. METAB OLIC PANEL (14) potassium 3.4 mmol/ L 3.5-5. 2 below low normal Not Available [facility] [address] [facility] [place], [address], 11/03/2023 16:14:02 11/01/19 24 11/02/2023 COMP. METAB OLIC PANEL (14) chloride 100 mmol/ L 96-106 Not Available [facility] [address] [facility] [place], [address], 11/03/2023 16:14:02 11/01/19 24 11/02/2023 COMP. METAB OLIC PANEL (14) carbon dioxide, total 28 mmol/ L 20-29 Not Available [facility] [address] [place], [address], 11/03/2023 16:14:02 11/01/19 24 11/02/2023 COMP. METAB OLIC PANEL (14) calcium 8.5 mg/dL 8.7-10 .3 below low normal Not Available [facility] [address] [place], [address], 11/03/2023 16:14:02 11/01/19 24 11/02/2023 COMP. METAB OLIC PANEL (14) protein, total 5.8 g/dL 6.0-8. 5 below low normal Not Available [facility] [address] [facility] [place], [address], 11/03/2023 16:14:02 11/01/19 24 11/02/2023 COMP. METAB OLIC PANEL (14) albumin 2.3 g/dL 3.8-4. 8 below low normal Not Available [facility] [address] [facility], [place], [address], 11/03/2023 16:14:02 11/01/19 24 11/02/2023 COMP. METAB OLIC PANEL (14) globulin, total 3.5 g/dL 1.5-4. 5 Not Available [facility] [address] [facility] [place], [address], 11/03/2023 16:14:02 11/01/19 24 11/02/2023 COMP. METAB OLIC PANEL (14) A/G ratio 0.7 1.2-2. 2 below low normal Not Available [facility] [address] [facility] [place], [address], 11/03/2023 16:14:02 11/01/19 24 11/02/2023 COMP. METAB OLIC PANEL (14) bilirubin, total <0.2 mg/dL 0.0-1. 2 Not Available [facility] [address] [facility], [place], [address], 11/03/2023 16:14:02 11/01/19 24 11/02/2023 COMP. METAB OLIC PANEL (14) alkaline phosphatase 134 IU/L 44-121 above high normal Not Available [facility] [address] [place], [address], 11/03/2023 16:14:02 11/01/19 24 11/02/2023 COMP. METAB OLIC PANEL (14) AST (SGOT) 9 IU/L 0-40 Not Available [facility] [address] [place], [address], 11/03/2023 16:14:02 11/01/19 24 11/02/2023 COMP. METAB OLIC PANEL (14) ALT (SGPT) 9 IU/L 0-32 Not Available [facility] [address] [facility], [place], [address], 11/03/2023 16:14:02 11/01/19 24 11/02/2023 CEA cea 1.8 NG/mL 0.0-4. 7 Nonsm okers <3.9 Smoke rs <5.6 Erik Diagn ostic s Elect erik milum inesc ence Immun oassa y (ECLI A) Value s obtai melinda with diffe rent assay metho ds or kits canno t be used inter huston eacaryl . Resul ts canno t be inter prete d as absol [place] evide nce of the prese nce or absen ce of [facility] se. Not Available [facility] [address] [place], [address], 11/03/2023 16:14:03 11/01/19 24 11/02/2023 AFP, SERUM , TUMOR MARKE R AFP, serum, tumor marker 4.1 NG/mL 0.0-9. 2 Erik Diagn ostic s Elect erik milum inesc ence Immun oassa y (ECLI A) Value s obtai melinda with diffe rent assay metho ds or kits canno t be used inter huston eably . Resul ts canno t be inter prete d as absol [place] evide nce of the prese nce or absen ce of [facility]. This test is not inter preta ble in pregn ant femal es. Not Available [facility] [address] [place], [address], 11/03/2023 16:14:04 11/01/19 24 11/02/2023 CA 19-9 Ca 19-9 <2 U/mL 0-35 Erik Diagn ostic s Elect erik milum inesc ence Immun oassa y (ECLI A) Value s obtai melinda with diffe rent assay metho ds or kits canno t be used inter [facility] eably . Resul ts canno t be inter prete d as absol [place] ev[place] nce of the prese nce or absen ce of [facility]. Not Available [facility] [address] [place], [address], 11/03/2023 16:14:05 11/01/19 24 11/03/2023 STRON GYLOI ANIL IGG ANTIB LANRE strongyloide s IgG antibody POSITI VE negati ve abnormal Not Available [facility] [address] [place], [address], 11/03/2023 16:14:06 11/01/19 24 11/02/2023 C-ERIN CTIVE PROTE IN, QUANT C-reactive protein, quant 24 mg/L 0-10 above high normal Not Available [facility] [address] [place], [address], 11/03/2023 16:14:07 11/01/19 24 11/02/2023 SPECI MEN STATU S REPOR T specimen status report TNP Test not perfo rmed. No stool speci men recei collin. TEST: [id number] Calpr otect in, Fecal 08816 7 Fecal Fat, Quali tativ e 68911 0 GI Profi le, Stool , [place] [address] 4 H. pylor i Stool Ag, EIA 73154 3 Ova + Krishna ite Exam [id number] 4 Pancr eatic Elast ase, Fecal Not Available [facility] [address], [place], [address], 11/03/2023 16:14:08 Result Notes None recorded. Problems Name Problem SNOMED Code Status Onset Date Resolution Date Notes Provider Name and Address Organization Details Recorded Time Stricture of colon 3543075 Active 024 Arron Wilkinson PA-C [address] , [place], [address], [facility] & [place] 21:31:36 Problem Notes None recorded. Procedures Surgical History Date Name Laterality Status Provider Name and Address Organization Details Recorded Time cholecystectomy completed Denita Morgan [facility] & [place] 11/04/2023 10:06:14 extraction of cataract completed Denitaedgar ARAMBULA [facility] & [place] 11/04/2023 10:06:28 colonoscopy completed Denita ARAMBULA [facility] 11/04/2023 10:06:38 Imaging Results None recorded. Procedure Notes None recorded. Medical Equipment None Reported. Allergies No known drug allergies Medications Name Sig Start Date Stop Date Status Note LastModified by Organization Details LastModified Time latanoprost 0.005 % eye drops INSTILL 1 DROP INTO BOTH EYES AT BEDTIME active Not Available Not Available No t Available alendronate 10 mg tablet TAKE 1 TABLET BY MOUTH EVERY DAY FOR 30 DAYS active Not Available Not Available No t Available doxazosin 1 mg tablet TAKE 1 TABLET BY MOUTH EVERY DAY active Not Available Not Available No t Available metoprolol succinate ER 50 mg tablet,exte nded release 24 hr TAKE 1 TABLET BY MOUTH EVERY DAY active Not Available Not Available No t Available metronidazo le 500 mg tablet TAKE ONE TABLET BY MOUTH THREE TIMES DAILY FOR 7 DAYS -- FINISH ALL MEDICINE -- --AVOID ANY PRODUCT(S ) CONTAININ G ALCOHOL WHILE TAKING THIS MEDICATIO N-- 11/03 completed Not Available Not Available Not Available ciprofloxac in 250 mg tablet TAKE ONE TABLET BY MOUTH EVERY TWELVE HOURS FOR 5 DAYS -- FINISH ALL MEDICINE -- 11/03 completed Not Available Not Available Not Available ketorolac 0.5 % eye drops INSTILL 1 DROP INTO RIGHT EYE 3 TIMES A DAY FOR 2 WEEKS FOLLOWING SURGERY THEN STOP 11/03 completed Not Available Not Available Not Available prednisolon e acetate 1 % eye drops,suspe nsion PLEASE SEE ATTACHED FOR DETAILED DIRECTION S 11/03 completed Not Available Not Available Not Available Cartia XT 120 mg capsule,ext ended release TAKE ONE CAPSULE BY MOUTH EVERY DAY active Not Available Not Available No t Available brimonidine 0.2 % eye drops INSTILL 1 DROP INTO BOTH EYES 3 TIMES A DAY active Not Available Not Available No t Available irbesartan 75 mg tablet active Not Available Not Available Not Available timolol maleate 0.5 % eye drops INSTILL 1 DROP INTO BOTH EYES TWICE A DAY active Not Available Not Available No t Available doxazosin 2 mg tablet TAKE 1 TABLET ORALLY ONCE DAILY active Not Available Not Available No t Available cholecalcif lamberto (vitamin D3) 25 mcg (1,000 unit) capsule TAKE 1 CAPSULE BY MOUTH EVERY DAY active Not Available Not Available No t Available moxifloxaci n 0.5 % eye drops INSTILL 1 DROP INTO RIGHT EYE 4 TIMES A DAY 11/03 completed Not Available Not Available Not Available cholecalcif lamberto (vitamin D3) 1,250 mcg (50,000 unit) capsule TAKE ONE CAPSULE BY MOUTH WEEKLY 11/03 completed Not Available Not Available Not Available GaviLyte-G 236 gram-22.74 gram-6.74 gram-5.86 gram oral solution Take 2000 mL every day by oral route as directed for 2 days. active Not Available Not Available No t Available Eliquis 5 mg tablet TAKE 1 TABLET BY MOUTH TWICE A DAY---ON HOLD active Not Available Not Available No t Available Clenpiq 10 mg-3.5 gram-12 gram/175 mL oral solution PLEASE SEE ATTACHED FOR DETAILED DIRECTION S 11/03 completed Not Available Not Available Not Available Slow Fe 137 mg (45 mg iron) tablet,exte nded release TAKE 1 TABLET BY MOUTH EVERY DAY 11/03 completed Not Available Not Available Not Available Vitals Date Recorded Body weight Body mass index (BMI) Body height Oxygen saturation Oxygen saturation in Arterial blood by Pulse oximetry Heart rate Heart rate Body temperature Systolic blood pressure Diastolic blood pressure Provider Name and Address Organization Details Last Updated DateTime 4 44472.9 4 g 20.7 kg/m2 157.48 cm 98 % 98 % 63 /min 66 /min 97.9 [degF] 177 mm[Hg] 75 mm[Hg] Kanwal Martinez [facility] & [place] 09:19:45 Date Recorded Body height Body mass index (BMI) Body weight Body temperature Oxygen saturation Oxygen saturation in Arterial blood by Pulse oximetry Heart rate Systolic blood pressure Diastolic blood pressure Provider Name and Address Organization Details Last Updated DateTime 4 157.48 cm 20.6 kg/m2 29159.8 6 g 97.1 [degF] 98 % 98 % 65 /min 210 mm[Hg] 81 mm[Hg] Denita Mora [facility] & [place] 09:58:31 Social History Question Answer Notes LastModified by Organizat ion Details LastModified Time Tobacco Smoking Status Never Smoker Denita Mora [facility] & [place] 11/04/2023 10:05:58 What Is Your Level Of Alcohol Consumption? None [email or web address] Information not available 11/04/2023 What Is Your Level Of Caffeine Consumption? Moderate [email or web address] Information not available 11/04/2023 What Was The Date Of Your Most Recent Tobacco Screening? 11/04/2023 Information not available 11/04/2023 Do You Use Any Illicit Or Recreational Drugs? No [email or web address] Information not available 11/04/2023 Has Tobacco Cessation Counseling Been Provided? No [email or web address] Information not available 11/04/2023 Do You Or Have You Ever Used Any Other Forms Of Tobacco Or Nicotine? No [email or web address] Information not available 11/04/2023 Sex: Unknown Functional Status None recorded. Mental Status None recorded. Family History Relationship Description Onset Age of this Age Resolved Age Notes LastModified by Organization Details LastModified Time Brother Malignant neoplastic disease unknow n [email or web address] Not available 11/04/2023 10:03:52 Maternal Grandmother Malignant neoplasm of female breast Not available 11/03 10:04:18 Medical History No medical history recorded. Gynecological HistoryNo gynecological history recorded. Obstetrics History GPAL:G 0 P 0 0 0 0 Past Encounters Encounter ID Performer Location Encounter Start Date Encounter Closed Date Diagnosis/Indication Diagnosis SNOMED-CT Code Diagnosis ICD10 Code Diagnosis Note [id number] Juan Cárdenas MD [facility] [address] [facility] [address] [place] [address] 11/01/2023 08:24:30 11/01/2023 10:31:47 Diarrhea 50588569 R19.7 Fatigue [id number] R53.83 Mass of colon [id number] R19.09 Anemia 814306177 D64.9 [id number] Georgia Love PA-C [facility] [address] [facility] [address] [place] [address] 11/04/2023 09:30:12 11/04/2023 10:40:15 Anemia [id number] D64.9 The patient had a colonoscop y on 10/05/23 which revealed large complex firm hemorrhoid al tags, hemorrhoid al cushions, moderate bowel prep, profound tortuosity between 15 and 25 cm, large complex friable mass-like lesion consistent with inflammato ry versus neoplastic changes 65 cm- the lesion was circumfere ntially and partially obstructin g-advancem ent beyond this point was not deemed safe, complex lobulated polyp at 35 cm, friable mucosa at 20 cm, and lobulated polyp at 7 cm. Pathology revealed inflammato ry polyp at 65cm with rare poorly formed non caseating granuloma with no dysplasia or malignancy , tubular adenoma with no high-grade dysplasia or malignancy at 35 cm, inflammato ry polyp at 20 cm with no identified dysplasia or malignancy , and tubular adenoma at 7 cm with no identified high-grade dysplasia or malignancy . Planning for repeat colonoscop y on October.She does report unintentio nal weight loss of 30 lbs over the last year. She has a long histroy of Crohn's disease. She is on vitamin B12 injections . She had labs per primary care provider August 2023 with normal vitamin B12 and folic acid.Rachel nt had labs performed per [facility] on {{ November 01, 2023#}}. White blood cell count {{ 10#}}. Red blood cell count {{ 4.31#}} . Hemoglobin {{ 10.7#}} . Hematocrit {{ 35.5#}} . Platelet count {{ 450#}}, 000. MCV {{ 82#}}. Low MCH and MCHC. No evidence of chronic kidney disease. Serum iron low at 16 and iron saturation 10%. Ferritin 620. Normal TSH. Normal CEA. Normal CA 19 9. Normal AFP. Patient denies any bleeding. She is unable to tolerate oral iron. Discussed infusional iron. Patient agreeable. Will schedule. Will follow-up labs again about a month after completion of infusional iron. Crohn's disease [id number] K50.90 Patient has a long histroy of Crohn's disease. She is on vitamin B12 injections . She had labs per primary care provider August 2023 with normal vitamin B12 and folic acid. Iron defic iency anemia [id number] D50.9 Patient had labs performed per [facility] on {{ November 01, 2023#}}. White blood cell count {{ 10#}}. Red blood cell count {{ 4.31#}} . Hemoglobin {{ 10.7#}} . Hematocrit {{ 35.5#}} . Platelet count {{ 450#}}, 000. MCV {{ 82#}}. Low MCH and MCHC. No evidence of chronic kidney disease. Serum iron low at 16 and iron saturation 10%. Ferritin 620. She is unable to tolerate oral iron. Discussed infusional iron. Patient agreeable. Will schedule. Health Concerns Section Related Observation LastModified by Organization Detai ls LastModified Time None Recorded Concern Status LastModified by Organization Details LastModified Time None Recorded Advance Directives Directive None Recorded Payers Encounter Date Sequence Insurance Name Policy Number Policy Thomas Covered Member ID Thomas Member ID Guarantor Name 11/01/2023 1 [facility] (MEDICARE REPLACEMENT/A DVANTAGE - HMO) [id number] Edyta Aguilera [id number] Edyta Aguilera 11/04/2023 1 [facility] (MEDICARE REPLACEMENT/A DVANTAGE - HMO) [id number] Edyta Aguilera [id number] Edyta Aguilera Notes Date Note Type Note Provider Name and Address Organization Details Recorded Time 4 text/html CURRENT (11/01/23 Lona Fuentes): Ms. Aguilera is a 78-year-old female who was referred by Dr. Kalen Baca for anemia and reported Crohns disease. The patient underwent colonoscopy with Dr. Baca on 10/05/23 which revealed large complex firm hemorrhoidal tags, hemorrhoidal cushions, moderate bowel prep, profound tortuosity between 15 and 25 cm, large complex friable mass-like lesion consistent with inflammatory versus neoplastic changes 65 cm- the lesion was circumferentially and partially obstructing-advancement beyond this point was not deemed safe, complex lobulated polyp at 35 cm, friable mucosa at 20 cm, and lobulated polyp at 7 cm. Pathology revealed inflammatory polyp at 65cm with rare poorly formed non caseating granuloma with no dysplasia or malignancy, tubular adenoma with no high-grade dysplasia or malignancy at 35 cm, inflammatory polyp at 20 cm with no identified dysplasia or malignancy, and tubular adenoma at 7 cm with no identified high-grade dysplasia or malignancy. The patient presents to the clinic today complaining of fatigue and falls at home. She does report unintentional weight loss of 30 lbs over the last year. She reports multiple soft stools daily. Her last colonoscopy was 20 years ago. She denies dizziness, night sweats, decreased appetite, nausea, vomiting, abdominal pain, hematemesis, hematochezia or melena. She does report a diagnosis of Crohn's disease years ago which she has managed with diet. She reports other gastroenterologists have told her she does not have Crohn's disease. She has never been on medication for this. CHAZ FUENTES MSN, TUB TENDER, [employer]-C [id number] [facility], [place], [address], [facility] [place] - [place] & [place] 11/01/2023 13:24:50 4 text/html 78-year-old female presents for evaluation of anemia. The patient had a colonoscopy on 10/05/23 which revealed large complex firm hemorrhoidal tags, hemorrhoidal cushions, moderate bowel prep, profound tortuosity between 15 and 25 cm, large complex friable mass-like lesion consistent with inflammatory versus neoplastic changes 65 cm- the lesion was circumferentially and partially obstructing-advancement beyond this point was not deemed safe, complex lobulated polyp at 35 cm, friable mucosa at 20 cm, and lobulated polyp at 7 cm. Pathology revealed inflammatory polyp at 65cm with rare poorly formed non caseating granuloma with no dysplasia or malignancy, tubular adenoma with no high-grade dysplasia or malignancy at 35 cm, inflammatory polyp at 20 cm with no identified dysplasia or malignancy, and tubular adenoma at 7 cm with no identified high-grade dysplasia or malignancy. Planning for repeat colonoscopy on October.She does report unintentional weight loss of 30 lbs over the last year. She has a long histroy of Crohn's disease. She is on vitamin B12 injections. She had labs per primary care provider August 2023 with normal vitamin B12 and folic acid. She states her brother had a malignancy be she is HC is unsure what type. Denies any other family history of malignancy. Patient had labs performed per Gastroenterology on {{ November 01, 2023#}}. White blood cell count {{ 10#}}. Red blood cell count {{ 4.31#}}. Hemoglobin {{ 10.7#}}. Hematocrit {{ 35.5#}}. Platelet count {{ 450#}},000. MCV {{ 82#}}. Low MCH and MCHC. No evidence of chronic kidney disease. Serum iron low at 16 and iron saturation 10%. Ferritin 620. Normal TSH. Normal CEA. Normal CA 19 9. Normal AFP. Patient denies any bleeding. She is unable to tolerate oral iron. Discussed infusional iron. Patient agreeable. Will schedule. Georgia Love PA-C [address] , [place], [address], [facility] - [place] & [place] 11/04/2023 13:06:43 OBGyn Episode No OBEpisode recorded.
[2024-11-26 18:06] VITALS: BP 176/86; PULSE 74; RESP 16; TEMP 36.7; O2SAT 98; BMI 23.8
--- NOTE | 2024-11-26 18:06 | CT_ITS ---
PROCEDURE INFORMATION: Exam: CTA Neck With Contrast Exam date and time: 11/26/2024 6:13 PM Age: 79 years old Clinical indication: Stroke-like symptoms; Altered mental status/memory loss; Additional info: Possible stroke TECHNIQUE: Imaging protocol: Computed tomographic angiography of the neck with contrast. Exam focused on the cervical segments of the vasculature. 3D rendering (Not supervised by radiologist): MIP and/or 3D reconstructed images were created by the technologist. Radiation optimization: All CT scans at this facility use at least one of these dose optimization techniques: automated exposure control; mA and/or kV adjustment per patient size (includes targeted exams where dose is matched to clinical indication); or iterative reconstruction. Contrast material: ISOVUE; Contrast volume: 80 ml; Contrast route: INTRAVENOUS (IV); COMPARISON: CT HEAD/BRAIN WO CON 11/26/2024 6:11 PM FINDINGS: Right common carotid artery: No stenosis. No dissection or occlusion. Right internal carotid artery: No stenosis of the extracranial segment. No dissection or occlusion. Right external carotid artery: No occlusion or stenosis of the origin. Left common carotid artery: No stenosis. No dissection or occlusion. Left internal carotid artery: No stenosis of the extracranial segment. No dissection or occlusion. Left external carotid artery: No occlusion or stenosis of the origin. Right vertebral artery: No stenosis. No dissection or occlusion. Left vertebral artery: No stenosis. No dissection or occlusion. Thyroid: Wider than tall 9 mm low-density nodule in the mid right thyroid. Wider than tall nodules in the left thyroid are densely calcified. Soft tissues: No masses or edema. Bones/joints: No acute fracture, subluxations, or bone lesions. Degenerative disc space narrowing and facet hypertrophy at multiple levels of the cervical spine. IMPRESSION: 1. No arterial stenosis or occlusion in the neck. 2. Bilateral thyroid nodules measure less than 15 mm in diameter and probably require no imaging follow-up. COMMENTS: Consistent with the [employer]'s Incidental Findings Committee white paper (J Am Ken Radiol 2015): In patients aged 35 years and older with an incidental thyroid nodule equal to or greater than 1.[address], MRI or extrathyroidal US, further evaluation with dedicated thyroid US is recommended for patients with normal life expectancy and without comorbidities. For smaller nodules without suspicious features, no further evaluation or follow up is recommended. REFERENCES: NASCET CRITERIA. The degree of stenosis in the cervical segment of the internal carotid artery is based on NASCET criteria. Normal is no stenosis. Mild is less than 50% stenosis. Moderate is 50-69% stenosis. Severe is 70% to 99% stenosis. Total occlusion is no detectable patent lumen.
--- NOTE | 2024-11-26 18:06 | CT_ITS ---
PROCEDURE INFORMATION: Exam: CTA Head With Contrast, Arteriography Exam date and time: 11/26/2024 6:13 PM Age: 79 years old Clinical indication: Stroke-like symptoms; Altered mental status/memory loss; Additional info: Possible stroke TECHNIQUE: Imaging protocol: Computed tomographic angiography of the head with contrast. Exam focused on the arteries. 3D rendering (Not supervised by radiologist): MIP and/or 3D reconstructed images were created by the technologist. Radiation optimization: All CT scans at this facility use at least one of these dose optimization techniques: automated exposure control; mA and/or kV adjustment per patient size (includes targeted exams where dose is matched to clinical indication); or iterative reconstruction. Contrast material: ISOVUE; Contrast volume: 80 ml; Contrast route: INTRAVENOUS (IV); COMPARISON: CT HEAD/BRAIN WO CON 11/26/2024 6:11 PM FINDINGS: ANTERIOR CIRCULATION: Right internal carotid artery: Intracranial segment is patent with no significant stenosis. No aneurysm. Right middle cerebral artery: No occlusion or significant stenosis. No aneurysm. Right anterior cerebral artery: No occlusion or significant stenosis. No aneurysm. Left internal carotid artery: Intracranial segment is patent with no significant stenosis. No aneurysm. Left middle cerebral artery: No occlusion or significant stenosis. No aneurysm. Left anterior cerebral artery: No occlusion or significant stenosis. No aneurysm. POSTERIOR CIRCULATION: Right vertebral artery: No occlusion or significant stenosis. No aneurysm. Left vertebral artery: No occlusion or significant stenosis. No aneurysm. Dominant. Basilar artery: No occlusion or significant stenosis. No aneurysm. Right posterior cerebral artery: No occlusion or significant stenosis. No aneurysm. Left posterior cerebral artery: No occlusion or significant stenosis. No aneurysm. Brain: No definite mass, mass effect, or midline shift. Cerebral ventricles: No ventriculomegaly. Bones/joints: No acute fracture or focal bone lesions. Soft tissues: No masses or swelling. IMPRESSION: No large vessel occlusion. No acute intracranial abnormalities.
--- NOTE | 2024-11-26 18:06 | CT_ITS ---
PROCEDURE INFORMATION: Exam: CT Head Without Contrast Exam date and time: 11/26/2024 6:11 PM Age: 79 years old Clinical indication: Stroke-like symptoms; Altered mental status/memory loss; Additional info: Possible stroke TECHNIQUE: Imaging protocol: Computed tomography of the head without contrast. Radiation optimization: All CT scans at this facility use at least one of these dose optimization techniques: automated exposure control; mA and/or kV adjustment per patient size (includes targeted exams where dose is matched to clinical indication); or iterative reconstruction. Other technique: STROKE PROTOCOL was implemented. COMPARISON: MR HEAD/BRAIN WO/W CON 10/20/2023 12:54 PM FINDINGS: Brain: No hemorrhage. Extensive low density in the white matter both cerebral hemispheres without mass effect. No other intra-axial or extra-axial lesions or masses. No midline shift. Cerebral ventricles: Ventricular systems are moderately prominent. Paranasal sinuses: Mucous retention cysts in the floors of both maxillary sinuses. Other visualized sinuses are well aerated. No fluid levels. Mastoid air cells: Visualized mastoid air cells are well aerated. Bones: No acute fracture or bone lesions. Soft tissues: No abnormalities. Vasculature: Heavy atherosclerotic calcification in the V4 segment of the left vertebral artery. IMPRESSION: 1. No acute intracranial abnormality. No interval change since 10/20/2023. 2. Cerebral atrophy and extensive white matter microvascular disease. ASSESSMENT: ASPECTS ([place] Stroke Program Early CT Score) is 10.
[2024-11-26] MEDS: 0.9 % SODIUM CHLORIDE 50 ML VIAL IV (18:11)
[2024-11-26 18:12] LABS: Basophils # 0.1 K/mm3 (0-0.2); Basophils % 1.3 % (0.1-2.0); Eosinophils # 0.4 Kmm3 (0.0-0.4); Eosinophils % 6.2 % (0.1-12.0); Hematocrit 33.9 % (37.0-47.0); Lymphocytes # 1.5 K/mm3 (0.7-4.5); Lymphocytes % 24.9 % (10-50); Mean Corpuscular HGB Conc 32.4 g/dL (31.8-35.4); Mean Corpuscular Hemoglobin 29.3 pg (27.0-31.2); Mean Corpuscular Volume 90.2 fl (81-99); Monocytes # 0.6 K/mm3 (0.1-1.0); Monocytes % 9.8 % (1.7-9.3); Neutrophils # 3.5 K/mm3 (1.8-7.8); Neutrophils % 57.8 % (37.0-80.0); Nucleated Red Blood Cells # 0 10^3/uL; Nucleated Red Blood Cells % 0 %; Platelet Count 223 K/mm3 (142-424); Red Blood Count 3.76 M/mm3 (4.20-5.40); Red Cell Distribution Width 13.6 % (11.5-17.5); Red Cell Distribution Width-SD 44.9 fL; White Blood Count 6.1 K/mm3 (4.8-10.8)
[2024-11-26] MEDS: IOPAMIDOL-370 (76%);100ML BOTTLE 80 ML IV (18:12)
[2024-11-26] MEDS: SODIUM CHLORIDE 0.9% 10ML SYR (RAD ONLY) 10 ML IV (18:12)
[2024-11-26 18:22] LABS: Albumin Level 4.1 g/dl (3.5-5.0); Chloride 113 mmol/L (98-107); Potassium 4.4 mmoL/L (3.5-5.1); Sodium 141 mmol/L (136-145)
[2024-11-26 18:24] LABS: Blood Urea Nitrogen 22 mg/dl (7-17); Estimated Glomerular Filt Rate 43 ml/min (>60); GFR (African American) 53 ML/MIN (>60)
[2024-11-26 18:25] LABS: Alanine Aminotransferase 25 U/L (12-78); Albumin/Globulin Ratio 1.4 (1.1-1.8); Alkaline Phosphatase 111 U/L (38-126); Anion Gap 7.4 mEq/L (5-15); Aspartate Amino Transferase 34 U/L (14-36); Bilirubin,Total 0.4 mg/dl (0.2-1.3); Calcium 9.1 mg/dl (8.4-10.2); Carbon Dioxide 25 mmol/L (22.0-30.0); Globulin 2.9 g/dL (1.3-3.2); Glucose 102 mg/dl (74-100)
[2024-11-26 18:27] LABS: Ethyl Alcohol < 10 mg/dl (0-10)
[2024-11-26 18:30] VITALS: BP 146/76; PULSE 71; O2SAT 99
--- NOTE | 2024-11-26 18:30 | ECG_ITS ---
APPROVED REPORT Exam: Resting ECG HR:71 bpm ECG Measurements Heart Rate 71 AXES MD 202 P 79 QRSd 90 QRS 61 QT 393 T 66 QTc 415 Conclusion SINUS RHYTHM LOW QRS VOLTAGE IN PRECORDIAL LEADS [QRS DEFLECTION < 1.0 mV IN CHEST LEADS] MODERATE ST DEPRESSION [0.05+ mV ST DEPRESSION] ABNORMAL ECG UNCONFIRMED REPORT Electronically signed by : Asher Florentino, 11/28/2024 15:16:00
[2024-11-26 18:39] LABS: Troponin I < 0.01 ng/ml (0.00-0.034)
[2024-11-26 18:59] LABS: Activated Partial Thrombo Time 26.5 seconds (22.8-30.6); Prothrombin Time 11.2 seconds (10.1-12.5)
[2024-11-26 19:07] LABS: Microscopic, Urine URINE MICROSCOPIC (MICROSCOPIC)
[2024-11-26 19:08] LABS: Appearance,Urine Slightly Cloudy (Clear); Bilirubin,Urine Negative (Negative); Blood, Urine 1+ (Negative); Color,Urine YELLOW (Yellow); Glucose,Urine (UA) Negative (Negative); Ketones,Urine Negative (Negative); Leukocyte Esterase,Urine 1+ (Negative); Nitrate,Urine Negative (Negative); PH,Urine 5.5 (5.0-8.5); Protein,Urine Negative (Negative); Specific Gravity, Urine 1.015 (1.005-1.030); Urobilinogen,Urine 0.2 EU/dl (0.2)
[2024-11-26 19:20] LABS: Benzodiazepines Screen,Urine Negative ng/ml (<200)
[2024-11-26 19:21] LABS: Amphetamine/Metha Screen,Urine Negative ng/ml (<1000)
[2024-11-26 19:22] LABS: Bacteria,Urine Trace /lpf; Barbiturates Screen,Urine Negative ng/ml (<200); Cannabinoid Screen,Urine Negative ng/ml (<50); Squamous Epithelial Cell,Urine Occasional #/hpf (0-5)
[2024-11-26 19:23] LABS: Cocaine Screen,Urine Negative ng/ml (<300); Methadone Screen,Urine Negative ng/ml (<300)
[2024-11-26 19:24] LABS: Opiate Screen,Urine Negative ng/ml (<300)
[2024-11-26 19:25] LABS: Phencyclidine Screen,Urine Negative ng/ml (<25)
[2024-11-26] MEDS: 0.9 % SODIUM CHLORIDE 1000ML 1,000 ML 999 ML IV (19:51)
[2024-11-26 20:26] VITALS: BP 153/66; PULSE 75; RESP 18; TEMP 36.7; O2SAT 98
--- NOTE | 2024-11-26 20:29 | PC.NURSE ---
Per Kimberly ESTRELLA, stroke alert was called on previous shift bc pt had eyebrow drooping only. no other deficits this ER visit. Pt neurologically intact upon DC. slight drooping to left eyebrow. Per Kimberly ESTRELLA pt refused MRI
--- NOTE | 2024-11-26 22:16 | ED_ITS ---
Discharge Plan Disposition Patient Disposition: Home, Self-Care Condition: Good Prescriptions Prescriptions: New cephalexin 500 mg capsule 500 mg PO BID 7 Days Qty: 14 0RF No Action latanoprost 0.005 % drops 1 drp Eye-Both HS Patient Comments: INSTILL 1 DROP INTO BOTH EYES AT BEDTIME timolol maleate 0.5 % drops 1 drp Eye-Both BID metoprolol tartrate 50 mg tablet 50 mg PO BID PRN (Reason: High blood pressure, irregular) Patient Comments: Do not take if sys blood pressure is below 109 or if pulse is below 50. loperamide [Anti-Diarrheal (loperamide)] 2 mg capsule 2 mg PO TID PRN aspirin 81 mg tablet,chewable 81 mg PO DAILY clopidogrel 75 mg tablet 75 mg PO DAILY amiodarone 200 mg tablet 100 mg PO DAILY Patient Comments: TAKE 1/2 TABLET BY MOUTH DAILY cholecalciferol (vitamin D3) 50 mcg (2,000 unit) capsule 50 mcg PO DAILY cyanocobalamin (vitamin B-12) 1,000 mcg tablet 1,000 mcg PO DAILY famotidine 40 mg tablet 40 mg PO DAILY multivitamin Tablet 1 tab PO DAILY losartan 50 mg tablet 50 mg PO DAILY Patient Comments: TAKE 1 TABLET BY MOUTH EVERY DAY acetaminophen [Tylenol Extra Strength] 500 mg tablet 500 mg PO Q6H PRN amlodipine 5 mg tablet 5 mg PO DAILY Referrals Follow up/Referrals: Rome Sosa DO [Primary Care Provider] - See instructions Activity Restrictions/Add. Instructions Additional Instructions/Restrictions: You were seen for eyebrow drooping. Your urine did show some bacteria which I will start some antibiotics for. You also had some anemia. Your CT scan also showed some thyroid nodules. Please discuss these findings with your PCP. Return to the ER if you develop any new symptoms. Clinical Impressions Clinical Impression: Acute UTI, Facial droop Print Language Print Language: American Discharge ED Provider: Duy Florentino General Adult HPI General Chief complaint: Neuro Symptoms/Deficit Stated complaint: vision problem, dizzy, left side face drooping Time Seen by Provider: 11/26/24 18:06 Mode of Arrival: Family Vehicle Source of Information: Patient, Relative and Medical Record Description of Symptoms (Recalled from ER Triage Doc. by RN): Pt brought in by family d/t possible stroke like sxs. States when she was getting ready for nondenominational she noticed left sided faial droop. She has a hx of CVA and rodriguez's palsy. She reports she is on plavix and asprin. Unknown onset of sxs, but noticed the facial droop around 1700 today. History of Present Illness HPI narrative: Patient presents with left eyebrow drooping. She is unsure at what point this started today. She reports that she was normal this morning and this evening when she went to get ready for nondenominational she noticed the eyebrow drooping. She does have a history of CVA in 2023. She reports that she had some dizziness around 430 and has had some headache. Denies any other focal weakness. MD complaint: left eyebrow droop Onset (ago): hour(s) Location: face Severity: mild Consistency: constant Relieving factors: none Exacerbating factors: none Associated symptoms: negative fever/chills Related Data Home Medications ?Medication ?Instructions ?Recorded ?Confirmed latanoprost 0.005 % eye drops 1 drp Eye-Both HS Glaucoma 10/27/22 11/16/24 timolol maleate 0.5 % eye drops 1 drp Eye-Both BID 10/27/22 11/16/24 amlodipine 5 mg tablet 5 mg PO DAILY bp 04/04/24 11/16/24 aspirin 81 mg chewable tablet 81 mg PO DAILY 09/25/24 11/16/24 clopidogrel 75 mg tablet 75 mg PO DAILY 09/25/24 11/16/24 acetaminophen 500 mg tablet 500 mg PO Q6H PRN 11/16/24 11/16/24 (Tylenol Extra Strength) amiodarone 200 mg tablet 100 mg PO DAILY 11/16/24 11/16/24 cholecalciferol (vitamin D3) 50 50 mcg PO DAILY 11/16/24 11/16/24 mcg (2,000 unit) capsule cyanocobalamin (vitamin B-12) 1,000 mcg PO DAILY 11/16/24 11/16/24 1,000 mcg tablet famotidine 40 mg tablet 40 mg PO DAILY 11/16/24 11/16/24 loperamide 2 mg capsule 2 mg PO TID PRN 11/16/24 11/16/24 (Anti-Diarrheal (loperamide)) losartan 50 mg tablet 50 mg PO DAILY 11/16/24 11/16/24 metoprolol tartrate 50 mg tablet 50 mg PO BID PRN High blood 11/16/24 11/16/24 pressure, irregular multivitamin 1 tab PO DAILY 11/16/24 11/16/24 Previous Rx's ?Medication ?Instructions ?Recorded cephalexin 500 mg capsule 500 mg PO BID 7 days #14 caps 11/26/24 Allergies Allergy/AdvReac Type Severity Reaction Status Date / Time No Known Allergies Allergy Verified 11/16/24 09:47 [facility] Disclaimer: The information contained in this section may have been updated after the patient was seen, as this information can be updated by other users. Medical History Acute Crohn's disease Acute hypokalemia Atrial fibrillation with rapid ventricular response Cataract Elevated BP without diagnosis of hypertension Elevated troponin Hx of cataract Hx of Crohn's disease Preop examination Surgical History Colostomy fistula History of cholecystectomy History of colonoscopy Family History Other Family history of allergies Family history of cancer Family history of hypertension Social History Smoking Status: Never smoker alcohol intake: never substance use type: denies use current occupational status: retired Travel in the last 8 weeks?: None household members: family housing: house Have you lived/traveled outside US in past 30 days?: No Contact w/someone who lives/traveled outside US past 30 days?: No Exposure to someone with infectious disease in past 14 days?: No Do you have a fever (greater than 100.4 F or 38 C)?: No Have you tested positive for COVID-19?: No Exposed to someone with COVID-19 in past 14 days?: No Do you have a sore throat?: No Do you have a cough?: No Do you have any weakness?: No Do you have any diarrhea?: No Are you experiencing any unusual bleeding?: No Do you have any muscle aches/pain?: No Do you have any abdominal pain?: No Are you experiencing loss of taste or smell?: No Other Medical History Have you received the Flu Vaccine for this season: No Have you received the Pneumonia Vaccine: No ROS Obtained: Yes Systems reviewed as appropriate & no additional complaints except as documented Physical Exam General General appearance: alert and in no apparent distress Head Head exam: atraumatic and normocephalic Eye Eye exam: Present normal appearance and EOMI Chest Chest inspection: Present symmetric chest wall rise Respiratory Respiratory exam: Present normal lung sounds bilaterally; Absent wheezes or stridor Cardiovascular Cardiovascular exam: Present regular rate and normal rhythm; Absent systolic murmur Extremities Exam Extremities exam: Present full ROM Neurological Exam Neurological exam: Present alert, oriented X3, normal gait and other (left eyebrow drooping, however patient is able to raise and lower it without difficulty. 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 Otherwise NL exam ); Absent motor sensory deficit Psychiatric Psychiatric exam: Present normal affect and normal mood Skin Skin exam: Present warm, dry and intact Medical Decision Making Medical Records Screening: Per USPSTF and CDC recommendations, given the prevalence of disease in our region, it is our hospital?s policy to screen for HIV and viral Hepatitis for all patients aged 18 and over and those with ongoing risk factors. Jamari Inquiry Pt receiving controlled substance: No Vital Signs: 11/26/24 18:06 11/26/24 18:30 11/26/24 20:26 Temperature 98.0 F 98.0 F Temperature Source Oral Oral Pulse Rate 71 75 Pulse Rate [Right] 74 Respiratory Rate 16 18 Blood Pressure 146/76 H 153/66 H Blood Pressure [Right Arm] 176/86 H Blood Pressure Mean 98 Blood Pressure Mean [Right Arm] 116 Blood Pressure Source Automatic Cuff Blood Pressure Source [Right Arm] Automatic Cuff Blood Pressure Position Sitting 02 Sat by Pulse Oximetry 98 99 Oxygen Delivery Method Room Air Room Air Room Air Lab Data Lab Results 11/26/24 18:00: WBC 6.1, RBC 3.76 L, Hgb 11.0 L, Hct 33.9 L, MCV 90.2, MCH 29.3, MCHC 32.4, RDW 13.6, Plt Count 223, MPV 10.0, Neut % (Auto) 57.8, Lymph % (Auto) 24.9, [place] % (Auto) 9.8 H, Eos % (Auto) 6.2, Baso % (Auto) 1.3, Neut # (Auto) 3.5, Lymph # (Auto) 1.5, [place] # (Auto) 0.6, Eos # (Auto) 0.4, Baso # (Auto) 0.1, PT 11.2, INR 1.00, APTT 26.5, Sodium 141, Potassium 4.4, Chloride 113 H, Carbon Dioxide 25, Anion Gap 7.4, BUN 22 H, Creatinine 1.20 H, Estimated GFR 43 L, Est GFR ( Amer) 53 L, Glucose 102 H, Calcium 9.1, Total Bilirubin 0.4, AST 34, ALT 25, Alkaline Phosphatase 111, Troponin I < 0.01, Total Protein 7.0, Albumin 4.1, Globulin 2.9, Albumin/Globulin Ratio 1.4, Plasma/Serum Alcohol < 10 11/26/24 19:02: Urine Color Yellow, Urine Appearance Slightly cloudy, Urine pH 5.5, Ur Specific [place] 1.015, Urine Protein Negative, Urine Glucose (UA) Negative, Urine Ketones Negative, Urine Blood 1+ A, Urine Nitrate Negative, Urine Bilirubin Negative, Urine Urobilinogen 0.2, Ur Leukocyte Esterase 1+ A, Urine RBC 3-5, Urine WBC 5-10, Ur Squamous Epith Cells Occasional, Urine Bacteria Trace, Urine Opiates Screen Negative, Urine Methadone Screen Negative, Ur Barbituates Screen Negative, Ur Phencyclidine Scrn Negative, Ur Amphetamines Screen Negative, U Benzodiazepines Scrn Negative, Urine Cocaine Screen Negative, U Marijuana (THC) Screen Negative 11/26/24 18:00 11/26/24 18:00 Orders (Tests/Meds): ED MEDICATIONS Discontinued Medications Generic Name Dose Route Start Last Admin Trade Name Freq PRN Reason Stop Dose Admin Sodium Chloride 1,000 mls @ 999 mls/hr 11/26/24 18:15 11/26/24 19:51 Sod Chlor 0.9% 1000ml Bag IV 12/26/24 18:14 999 mls/hr .Q1H1M KARIN Administration Iopamidol 80 ml 11/26/24 18:11 11/26/24 18:12 Iopamidol-370 (76%);100ml Bottle IV 11/26/24 18:12 80 ml ONCE ONE Administration Sodium Chloride 10 ml 11/26/24 18:06 Sodium Chloride 0.9% 10ml Flush Syringe IV 12/26/24 18:05 NEEDED PRN Maintain IV Site Sodium Chloride 10 ml 11/26/24 18:11 11/26/24 18:12 Sodium Chloride 0.9% 10ml Syr (Rad Only) IV 11/26/24 18:12 10 ml ONCE ONE Administration Sodium Chloride 50 ml 11/26/24 18:11 11/26/24 18:11 0.9 % Sodium Chloride 50 Ml Vial IV 11/26/24 18:12 50 ml ONCE ONE Administration ORDERS Category Date Time Status CT angio head Stat Cat Scan 11/26/24 18:[address] angio neck Stat Cat Scan 11/26/24 18:[address] head/brain wo con Stat Cat Scan 11/26/24 18:06 Completed Activated Partial Thrombo Time Stat Lab 11/26/24 18:00 Completed Complete Blood Count Auto Diff Stat Lab 11/26/24 18:00 Completed Comprehensive Metabolic Panel Stat Lab 11/26/24 18:00 Completed Drug Screen,Urine Stat Lab 11/26/24 19:02 Completed Ethyl Alcohol Stat Lab 11/26/24 18:00 Completed Prothrombin Time INR Stat Lab 11/26/24 18:00 Completed Troponin I Stat Lab 11/26/24 18:00 Completed Urinalysis and Microscopic Stat Lab 11/26/24 19:02 Completed Urine Culture Stat Micro 11/26/24 19:02 Received ECG Request Stat Y 11/26/24 18:06 Ordered Medical Decision Narrative: In summary patient is a 79-year-old who presents the emergency department for evaluation of left febrile drip. Patient is hemodynamically upon arrival, afebrile. Left eyebrow drooping, however has the ability to raise and lower eyebrow on exam. Differential diagnosis includes CVA, TIA. Initial workup will be conducted with CT brain, CTA head neck, labs. Initial workup reviewed by me unremarkable with the exception of bacteria in urine and thyroid nodules. Upon repeat evaluation patient continues to have no other neurologic findings. Discussed possible MRI versus continuing her aspirin and Plavix and returning to ER for any new or worsening symptoms, patient would prefer to be discharged at this time. Given this patient started on Keflex for bacteria in urine given her history of UTI's. Critical Care Critical Care Time Critical Care Time: No
--- NOTE | 2024-11-28 11:29 | PC.NURSE ---
I consulted about urine culture results. no changed needed to treatment plan.
== END 2024-11-26 20:34 | disposition home or self-care (01) ==
PROVIDERS: Physician Assistant; Emergency Provider Student in an Organized Health Care Education/Training Program; PCP Internal Medicine
DX: N39.0 Urinary tract infection, site not specified (principal); R29.810 Facial weakness; Z79.01 Long term (current) use of anticoagulants; Z86.73 Personal history of transient ischemic attack (TIA), and cerebral infarction without residual deficits
CPT/HCPCS: 70450; 70496; 70498; 80053; 80307; 80320; 81001; 84484; 85025; 85610; 85730; 87086; 93005; 96360; 96361; 99285; J7030; Q9967

== ENCOUNTER 2024-12-11 10:13 | Outpatient (CLI) | payer MEDICARE, SELFPAY ==
[2024-12-11 13:54] LABS: Cholesterol 145 mg/dl (140-200); HDL Cholesterol 74 mg/dl (40-60); Triglycerides 188 mg/dl (30-150); VLDL Cholesterol 38 mg/dL (0-40)
[2024-12-11 14:07] LABS: Direct LDL Cholesterol < 30.00 mg/dL (100-129)
== END 2024-12-11 23:59 | disposition home or self-care (01) ==
LOC: LAB.DROPOF 20:18
PROVIDERS: PCP Internal Medicine; Visit Provider Internal Medicine
DX: Z13.220 Encounter for screening for lipoid disorders (principal); I70.90 Unspecified atherosclerosis
CPT/HCPCS: 80061

== ENCOUNTER 2025-02-06 14:42 | Outpatient (CLI) | payer MEDICARE, SELFPAY ==
--- OUTSIDE RECORDS SUMMARY | 2025-02-06 14:46 | XMS_ITS | Referral Summary ---
Author Organization [employer] ([place], [place], [place], [place]) Address [address] [place] [address] Care Team Providers Care Distance Learning Technician Name Role Phone Everardosavannah Les Mosher Primary Care Provider [phone] Encounters Date Type Department Care Team Description 11/29/2024 Orders Only [address] [address] Geeta Hammond, AUTOMOBILE LIGHTS ASSEMBLER 11/29/2024 Orders Only [address] [address] Geeta Hammond, AUTOMOBILE LIGHTS ASSEMBLER 11/28/[address] [address] Geeta Hammond, AUTOMOBILE LIGHTS ASSEMBLER Medication Management 11/27/2024 Travel 11/27/2024 9:45 AM EDT Office Visit [facility] Electrophysiology [address] [place] [address] Teressa Mayorga MD Bradycardia (Primary Dx); Paroxysmal atrial fibrillation (HCC); Presence of Watchman left atrial appendage closure device 11/07/2024 Orders Only [address] [address] Annalise Howell MA 11/07/2024 1:00 PM EDT Office Visit [address] [address] Talon Sales DO Presence of Watchman left atrial appendage closure device (Primary Dx); Paroxysmal atrial fibrillation (HCC); Bradycardia; Hx of TIA (transient ischemic attack) and stroke; 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 4 Active latanoprost (XALATAN) 0.005 % ophthalmic solution Administer 1 drop into both eyes daily. 4 Active loperamide (IMODIUM) 2 mg capsule Take 2 capsules (4 mg total) by mouth 3 (three) times daily. 4 Active timolol (TIMOPTIC) 0.5 % ophthalmic solution 1 drop 2 (two) times daily. 4 Active multivitamin per tablet Take 1 tablet by mouth daily. Active famotidine (PEPCID) 40 MG tablet Take 1 tablet (40 mg total) by mouth daily. Active cyanocobalamin (VITAMIN B-12) 1000 MCG tablet Take 1 tablet (1,000 mcg total) by mouth daily. Active amLODIPine (NORVASC) 5 MG tablet Take 1 tablet (5 mg total) by mouth daily. 30 tablet 6 4 Active amiodarone (PACERONE) 200 MG tabletIndicatio ns:Abnormality of left atrial appendage Take 0.5 tablets (100 mg total) by mouth daily. 45 tablet 3 4 05/26/20 25 Active metoprolol tartrate (LOPRESSOR) 50 MG tablet Take 1 tablet (50 mg total) by mouth 2 (two) times daily as needed. 60 tablet 6 5 Active Additional Information Patient taking differently:50 mg oral 2 times daily PRN,Take only if pulse is greater than 65, Reported on 11/27/2024 clopidogreL (PLAVIX) 75 mg tablet Take 1 tablet (75 mg total) by mouth daily Look-alike/Jillian nd-alike medication. 90 tablet 3 5 Active aspirin 81 MG EC tablet Take 1 tablet (81 mg total) by mouth daily. Active losartan (COZAAR) 100 MG tablet Take 1 tablet (100 mg total) by mouth daily. 90 tablet 3 5 11/30/19 26 Active Active Problems Problem Noted Date Diagnosed Date Paroxysmal A-fib 09/05/2024 Social History Tobacco Use Types Packs/Day Years Used Date Smoking Tobacco: Never Passive Smoke Exposure: Past Smokeless Tobacco: Never Tobacco Cessation:Counseling Given: Not Answered Alcohol Use Standard Drinks/Week Comments Not Currently 0 (1 standard drink = 0.6 oz pur e alcohol) Family and Community Support Answer Liu e Recorded Help with Day to Day Activities Not on file 03/06/2024 Feeling Lonely or Isolated Not on file 03/06 Educational Attainment Answer Date Soren rded Speak language other than Bahraini at home Not on file 03/06/2024 Want help with school or training Not on file 03/06/2024 Substance Use Answer Date Recorded Used prescription meds for non-medical reasons N ot on file 03/06/2024 Used illegal drugs past 12 months Not on file 03/06/2024 Comments No Sex and Gender Information Value Date Recorded Sex Assigned at Not on file Legal Sex Female 9:19 AM CDT Gender Identity Not on file Sexual Orientation Not on file Last Filed Vital Signs Vital Sign Reading Time Taken Comments Blood Pressure 138/80 11/27/2024 9:58 AM EDT Pulse 65 11/27/2024 9:58 AM EDT Temperature 37 C (98.6 F) 10/24/2024 6:31 AM EDT Respiratory Rate 24 10/24/2024 9:10 AM EDT Oxygen Saturation 96% 11/27/2024 9:58 AM EDT Inhaled Oxygen Concentration - - Weight 62.4 kg (137 lb 9.6 oz) 11/27/2024 9:58 A M EDT Height 157.5 cm (5' 2 ) 11/27/2024 9:58 AM EDT Body Mass Index 25.17 11/27/2024 9:58 AM EDT Plan of Treatment Upcoming Encounters Date Type Department Care Team (Late st Contact Info) Description 05/08/2025 2:00 PM EDT Office Visit [facility] Cardiology [place] [phone] Talon Sales DO [address] [place] [address] Procedures Procedure Name Priority Date/Time Associated Diagnosis Comments FS_MODEL_IP_ECG 12-LEAD Routine 11/27/2024 9:58 A M EDT Bradycardia from Last 3 Months Results * ECG 12 lead (11/27/2024 9:58 AM EDT) us Reedsef Mukesh CORBIN ECG ORDERABLES Final Result from Last 3 Months Insurance [employer] MEDICARE ADVANTAGE Advance Directives For more information, please contact: [phone] * Full Code (Latest Code Status on File) Date Activated Date Inactivated Comments 10/24/2024 6:18 AM 10/25/2024 4:28 AM * Full Code Date Activated Date Inactivated Comments 09/05/2024 9:18 AM 09/05/2024 3:41 PM * Full Code Date Activated Date Inactivated Comments 09/05/2024 5:01 AM 09/05/2024 9:18 AM * Full Code Date Activated Date Inactivated Comments 08/08/2024 8:08 AM 08/09/2024 4:29 AM * Full Code Date Activated Date Inactivated Comments 08/08/2024 4:41 AM 08/08/2024 8:08 AM Care Teams Distance Learning Technician Relationship Specialty Start Date End Date Les Carrion DO PCP - General Internal Medicine 03/20/24
--- OUTSIDE RECORDS SUMMARY | 2025-02-06 14:46 | XMS_ITS | Encounter Summary ---
Author Organization [place] Address [facility] [place] [address] Care Team Providers Care Biomedical Engineer Name Role Phone Unavailable Primary Care Provider Unavailabl e Encounter Details Date Type Department Care Team (Late st Contact Info) Description 01/17/2024 Lab Requisition [facility] [facility] Encounter for general adult medical examination without abnormal findings Social History Tobacco Use Types Packs/Day Years Used Date Smoking Tobacco: Never Assessed Comments Unknown Sex and Gender Information Value Date Recorded Sex Assigned at Not on file Legal Sex Female 2:04 PM EDT Gender Identity Not on file Sexual Orientation Not on file documented as of this encounter Plan of Treatment Not on file documented as of this encounter Procedures Procedure Name Priority Date/Time Associated Diagnosis Comments CBC Routine 01/17/2024 6:00 AM EDT Encounter for general adult medical examination without abnormal findings COMPREHENSIVE METABOLIC PANEL Routine 01/17/2024 6:00 AM EDT Encounter for general adult medical examination without abnormal findings documented in this encounter Results * (ABNORMAL) COMPREHENSIVE METABOLIC PANEL (01/17/2024 6:00 AM EDT) Sodium 137 136 - 145 mmol/L 01/17/2024 11:18 AM EDT [facility] Potassium 3.6 3.5 - 5.0 mmol/L 01/17/2024 11:18 AM EDT [facility] Chloride 101 98 - 107 mmol/L 01/17/2024 11:18 AM EDT [facility] Total CO2 27 22 - 29 mmol/L 01/17/2024 11:18 AM EDT [facility] Anion Gap 9 7 - 16 mmol/L 01/17/2024 11:18 AM EDT [facility] Calcium 9.5 8.8 - 10.4 mg/dL 01/17/2024 11:18 AM EDT [facility] Glucose Lvl 96 70 - 99 mg/dL 01/17/2024 11:18 AM EDT [facility] BUN 16 8 - 23 mg/dL 01/17/2024 11:18 AM EDT [facility] Creatinine 1.33(H) 0.51 - 1.30 mg/dL 01/17/2024 11:18 AM EDT [facility] Albumin 3.1(L) 3.2 - 4.6 gm/dL 01/17/2024 11:18 AM EDT [facility] Total Protein 5.8(L) 6.4 - 8.3 gm/dL 01/17/2024 11:18 AM EDT [facility] Bili Total 0.3 0.2 - 1.3 mg/dL 01/17/2024 11:18 AM EDT [facility] ALT 25 <=41 U/L 01/17/2024 11:18 AM EDT [facility] AST 22 <=40 U/L 01/17/2024 11:18 AM EDT [facility] Alk Phos 90 36 - 123 U/L 01/17/2024 11:18 AM EDT [facility] eGFR (CKD-EPIcr 2020) 41(L) >=60 mL/min/1.7 3 m2 01/17/2024 11:18 AM EDT [facility] Comment:Estimated GFR was ca lculated using the CKD-EPIcr (2020) equation refit without race. The equation is recommended by the National Kidney Foundation - [place] [employer] of Nephrology Task Force. Blood VENOUS BLOOD / Unknown 01/17/2024 6:00 AM EDT 01/17/2024 10:01 AM EDT us [facility] CHEMISTRY ORDERABLES Final Resu lt [facility] [address] [facility] , [place] [address] [facility] [address] [place] [id number] * (ABNORMAL) CBC (01/17/2024 6:00 AM EDT) WBC 6.1 3.7 - 10.3 x10(3)/mcL 01/17/2024 10:54 AM EDT [facility] RBC 3.47(L) 3.90 - 5.20 x10(6)/mcL 01/17/2024 10:54 AM EDT [facility] Hgb 9.3(L) 11.2 - 15.7 g/dL 01/17/2024 10:54 AM EDT [facility] Hct 30.9(L) 34.0 - 45.0 % 01/17/2024 10:54 AM EDT [facility] MCV 89.0 80.0 - 100.0 fL 01/17/2024 10:54 AM EDT [facility] MCH 26.8 26.0 - 34.0 pg 01/17/2024 10:54 AM EDT [facility] MCHC 30.1(L) 30.7 - 35.5 g/dL 01/17/2024 10:54 AM EDT [facility] RDW 17.9(H) <=14.9 % 01/17/2024 10:54 AM EDT [facility] Platelet 256 155 - 369 x10(3)/mcL 01/17/2024 10:54 AM EDT [facility] MPV 10.2 8.8 - 12.5 fL 01/17/2024 10:54 AM EDT [facility] Blood VENOUS BLOOD / Unknown 01/17/2024 6:00 AM EDT 01/17/2024 10:01 AM EDT [facility] HEMATOLOGY ORDERABLES Final Res ult [facility] [address] [place] [address], [place] [address] documented in this encounter Visit Diagnoses Diagnosis Encounter for general adult medical examination without abnormal findings Routine general medical examination at a health care facility documented in this encounter
--- OUTSIDE RECORDS SUMMARY | 2025-02-06 14:46 | XMS_ITS | Clinical Summary ---
Author Organization [employer] ([place], [place], [place], [place]) Address [address] [place] [address] Care Team Providers Care Room Server Name Role Phone Les Carrion DO Primary Care Provider [phone] Allergies No known active allergies Medications cholecalciferol [...] tablet (81 mg total) by mouth daily. 5 Active losartan (COZAAR) 100 MG tablet Take 1 tablet (100 mg total) by mouth daily. 90 tablet 3 5 11/30/19 26 Active Active Problems Problem Noted Date Diagnosed Date Paroxysmal A-fib 09/05/2024 Encounters Date Type Department Care Team Description 11/29/2024 Orders Only [address] [address] Geeta Hammond CMA 11/29/2024 Orders Only [address] [address] Geeta Hammond CMA 11/28/[address] [address] Geeta Hammond CMA Medication Management 11/27/2024 9:45 AM EDT Office Visit [facility] Electrophysiology [address] [place] [address] Teressa Mayorga MD Bradycardia (Primary Dx); Paroxysmal atrial fibrillation (HCC); Presence of Watchman left atrial appendage closure device 11/27/2024 Travel 11/07/2024 1:00 PM EDT Office Visit [address] [address] Talon Sales DO Presence of Watchman left atrial appendage closure device (Primary Dx); Paroxysmal atrial fibrillation (HCC); Bradycardia; Hx of TIA (transient ischemic attack) and stroke; 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); Primary hypertension; Hx of Crohn's disease 11/07/2024 Orders Only [facility] Cardiology [facility] [address] [place] [address] Annalise Howell MA from Last 3 Months Family History Medical History Relation Name Comments Cancer Brother Heart disease Father Hypertension Father Hypertension Mother Relation Name Status Comments Brother Father Mother Social History Tobacco Use Types Packs/Day Years [...] Date Soren rded Speak language other than Austrian at home Not on file 03/06/2024 Want [...] Description 05/08/2025 2:00 PM EDT Office Visit [facility] Cardiology [facility] [address] [place] [address] Talon Sales DO [address] [place] [id number] Health Maintenance Due Date Last Done Comments DXA SCAN 1945 Depression Screening (12+) 1958 Hepatitis C Screening 1964 DTAP/TDAP/TD VACCINES (1 - Tdap) 1965 Pneumococcal 50+ years (1 of 2 - PCV) 1965 Shingles Vaccine (Zoster) (1 of 2) 1996 Respiratory Syncytial Virus (RSV) Adult or (1 - 1-dose 75+ series) 2021 COVID-19 VACCINE ( - season) 2024 Falls Risk Screening 07/26/2024 Medicare IPPE (Welcome to Medicare) [id number] 07/26/2024 Influenza Vaccine (#1) 2025 Tobacco Cessation Counseling and Screening (12+) 11/2711/27/2024 Procedures Procedure Name Priority Date/Time Associated Diagnosis Comments [id number] 12-LEAD Routine 11/27/2024 9:58 A M EDT Bradycardia from Last 3 Months Results * ECG 12 lead (11/27/2024 9:58 AM EDT) us Teressa Mayorga MD ECG ORDERABLES Final Result from Last 3 Months Insurance [facility] MEDICARE ADVANTAGE Advance Directives For more information, please contact: [phone] * Full Code (Latest Code Status on [...] 4:41 AM 08/08/2024 8:08 AM Care Teams Room Server Relationship Specialty Start Date End Date Les Carrion DO PCP - General Internal Medicine 03/20/24
--- OUTSIDE RECORDS SUMMARY | 2025-02-06 14:46 | XMS_ITS | Encounter Summary ---
Author Organization [place] Address [facility] [place] [address] Care Team Providers Care Superintendent Of Schools Name Role Phone Unavailable Primary Care Provider Unavailabl e Encounter Details Date Type Department Care Team (Late st Contact Info) Description 01/20/2024 Lab Requisition [facility] Shorty Mitch [facility] Encounter for general adult medical [...] Priority Date/Time Associated Diagnosis Comments CBC Routine 01/20/2024 7:30 AM EDT Encounter for general adult medical examination without abnormal findings COMPREHENSIVE METABOLIC PANEL Routine 01/20/2024 7:30 AM EDT Encounter for general adult medical examination without abnormal findings documented in this encounter Results * (ABNORMAL) CBC (01/20/2024 7:30 AM EDT) WBC 5.1 3.7 - 10.3 x10(3)/mcL 01/20/2024 9:55 AM EDT [facility] RBC 3.63(L) 3.90 - 5.20 x10(6)/mcL 01/20/2024 9:55 AM EDT [facility] Hgb 9.8(L) 11.2 - 15.7 g/dL 01/20/2024 9:55 AM EDT [facility] Hct 31.8(L) 34.0 - 45.0 % 01/20/2024 9:55 AM EDT [facility] MCV 87.6 80.0 - 100.0 fL 01/20/2024 9:55 AM EDT [facility] MCH 27.0 26.0 - 34.0 pg 01/20/2024 9:55 AM EDT [facility] MCHC 30.8 30.7 - 35.5 g/dL 01/20/2024 9:55 AM EDT [facility] RDW 16.7(H) <=14.9 % 01/20/2024 9:55 AM EDT [facility] Platelet 296 155 - 369 x10(3)/mcL 01/20/2024 9:55 AM EDT [facility] MPV 9.9 8.8 - 12.5 fL 01/20/2024 9:55 AM EDT [facility] Blood VENOUS BLOOD / Unknown 01/20/2024 7:30 AM EDT 01/20/2024 9:13 AM EDT [facility] HEMATOLOGY ORDERABLES Final Res ult [facility] [address] [facility] , [address] [place] [id number] * (ABNORMAL) COMPREHENSIVE METABOLIC PANEL (01/20/2024 7:30 AM EDT) Sodium 136 136 - 145 mmol/L 01/20/2024 10:33 AM EDT [facility] Potassium 3.5 3.5 - 5.0 mmol/L 01/20/2024 10:33 AM EDT [facility] Chloride 103 98 - 107 mmol/L 01/20/2024 10:33 AM EDT [facility] Total CO2 24 22 - 29 mmol/L 01/20/2024 10:33 AM EDT [facility] Anion Gap 9 7 - 16 mmol/L 01/20/2024 10:33 AM EDT [facility] Calcium 9.2 8.8 - 10.4 mg/dL 01/20/2024 10:33 AM EDT [facility] Glucose Lvl 89 70 - 99 mg/dL 01/20/2024 10:33 AM EDT [facility] BUN 15 8 - 23 mg/dL 01/20/2024 10:33 AM EDT [facility] Creatinine 1.13 0.51 - 1.30 mg/dL 01/20/2024 10:33 AM EDT [facility] Albumin 3.2 3.2 - 4.6 gm/dL 01/20/2024 10:33 AM EDT [facility] Total Protein 5.7(L) 6.4 - 8.3 gm/dL 01/20/2024 10:33 AM EDT [facility] Bili Total 0.2 0.2 - 1.3 mg/dL 01/20/2024 10:33 AM EDT [facility] ALT 24 <=41 U/L 01/20/2024 10:33 AM EDT [facility] AST 23 <=40 U/L 01/20/2024 10:33 AM EDT [facility] Alk Phos 84 36 - 123 U/L 01/20/2024 10:33 AM EDT [facility] eGFR (CKD-EPIcr 2020) 50(L) >=60 mL/min/1.7 3 m2 01/20/2024 10:33 AM EDT [facility] Comment:Estimated GFR was ca lculated using the CKD-EPIcr (2020) equation refit without race. The equation is recommended by the National Kidney Foundation - [place] [employer] of Nephrology Task Force. Blood VENOUS BLOOD / Unknown 01/20/2024 7:30 AM EDT 01/20/2024 9:13 AM EDT us [facility] CHEMISTRY ORDERABLES Final Resu lt [facility] [address] [facility] , [place] [address] [facility] [address] [place] [address] documented in this encounter Visit Diagnoses Diagnosis Encounter for general adult medical examination without abnormal findings Routine general medical examination at a health care facility documented in this encounter
--- OUTSIDE RECORDS SUMMARY | 2025-02-06 14:46 | XMS_ITS | Clinical Summary ---
Author Organization [facility] [place] Address [address] [place], [place] [address]y [address] [place] [address] Phone Care Team Providers Care Flaking Roll Operator Name Role Phone Unavailable Primary Care Provider Unavailabl e Allergies No known active allergies Surgical History Surgery Date Site/Laterality Comments CATARACT EXTRACTION EXTRACAPSULAR W/ INTRAOCULAR LENS IMPLANTATION 12/08/2022 Right [facility]/Dr. Antione Benjamin CATARACT EXTRACTION EXTRACAPSULAR W/ INTRAOCULAR LENS IMPLANTATION 12/22/[address] Antione Benjamin Social History Tobacco Use Types Packs/Day Years Used Date Smoking Tobacco: Never Assessed Comments Unknown Sex and Gender Information Value Date Recorded Sex Assigned at Not on file Legal Sex Female 2:04 PM EDT Gender Identity Not on file Sexual Orientation Not on file Obstetrics History Plan of Treatment Health Maintenance Due Date Last Done Comments Annual Wellness Exam 1948 Hepatitis C Screening 1964 DTaP/TDaP/Td (1 - Tdap) 1965 Pneumococcal Vaccine 50+ (1 of 1 - PCV) 1996 Zoster (1 of 2) 1996 Bone Density Screening 10/12/2011 RSV or 60+ (1 - 1-d ose 75+ series) 2021 COVID-19 Vaccine ( - 2023-2 5 season) 2024 Influenza Vaccine (#1) 2025 Hepatitis B Vaccine Aged Out No longe r eligible based on patient's age to complete this topic Meningococcal B Vaccine Aged Out No l onger eligible based on patient's age to complete this topic Insurance [facility] [place] [id number] [facility] [address] MEDICARE COMPLETE AARP [place] [id number]
--- OUTSIDE RECORDS SUMMARY | 2025-02-06 14:46 | XMS_ITS | Encounter Summary ---
Author Organization [employer] ([place], [place], [place], [place]) Address [address] [place] [address] Care Team Providers Care Trick Rodeo Rider Name Role Phone EverardoLes nuñez Primary Care Provider [phone] Reason for Visit * Reason Comments Med Change Request Encounter Details Date Type Department Care Team (Late st Contact Info) Description 03/21/2024 [facility] Cardiology [address] [address] Jagjit Florentino, PA-C [address] [place] [address] Social History Tobacco Use Types Packs/Day Years Used Date Smoking Tobacco: Never Smokeless Tobacco: Never Alcohol Use Standard Drinks/Week Comments Not Currently 0 (1 standard drink = 0.6 oz pur e alcohol) Family and Community Support Answer Liu e Recorded Help with Day to Day Activities Not on file 03/06/2024 Feeling Lonely or Isolated Not on file 03/06 Educational Attainment Answer Date Soren rded Speak language other than Palestinian at home Not on file 03/06/2024 Want help with school or training Not on file 03/06/2024 Substance Use Answer Date Recorded Used prescription meds for non-medical reasons N ot on file 03/06/2024 Used illegal drugs past 12 months Not on file 03/06/2024 Comments Unknown Sex and Gender Information Value Date Recorded Sex Assigned at Not on file Legal Sex Female 9:19 AM CDT Gender Identity Not on file Sexual Orientation Not on file documented as of this encounter Plan of Treatment Upcoming Encounters Date Type Department Care Team (Late st Contact Info) Description 05/08/2025 2:00 PM EDT Office Visit [facility] Cardiology [address] [address] Talon Sales DO [address] [place] [place] [address] documented as of this encounter Visit Diagnoses Not on filedocumented in this encounter Care Teams Trick Rodeo Rider Relationship Specialty Start Date End Date Les Carrion DO PCP - General Internal Medicine 03/20/24 documented as of this encounter
--- OUTSIDE RECORDS SUMMARY | 2025-02-06 14:46 | XMS_ITS | Encounter Summary ---
Author Organization [place] Address [facility] [place] [address] Care Team Providers Care Headliner Installer Name Role Phone Unavailable Primary Care Provider Unavailabl e Encounter Details Date Type Department Care Team (Late st Contact Info) Description 01/13/2024 Lab Requisition [facility] Shorty Mitch [facility] Encounter for general [...] Priority Date/Time Associated Diagnosis Comments CBC Routine 01/13/2024 5:36 AM EDT Encounter for general adult medical examination without abnormal findings COMPREHENSIVE METABOLIC PANEL Routine 01/13/2024 5:36 AM EDT Encounter for general adult medical examination without abnormal findings documented in this encounter Results * (ABNORMAL) COMPREHENSIVE METABOLIC PANEL (01/13/2024 5:36 AM EDT) Sodium 142 136 - 145 mmol/L 01/13/2024 10:05 AM EDT [facility] Potassium 3.9 3.5 - 5.0 mmol/L 01/13/2024 10:05 AM EDT [facility] Chloride 107 98 - 107 mmol/L 01/13/2024 10:05 AM EDT [facility] Total CO2 25 22 - 29 mmol/L 01/13/2024 10:05 AM EDT [facility] Anion Gap 10 7 - 16 mmol/L 01/13/2024 10:05 AM EDT [facility] Calcium 8.5(L) 8.8 - 10.4 mg/dL 01/13/2024 10:05 AM EDT [facility] Glucose Lvl 79 70 - 99 mg/dL 01/13/2024 10:05 AM EDT [facility] BUN 13 8 - 23 mg/dL 01/13/2024 10:05 AM EDT [facility] Creatinine 0.95 0.51 - 1.30 mg/dL 01/13/2024 10:05 AM EDT [facility] Albumin 2.4(L) 3.2 - 4.6 gm/dL 01/13/2024 10:05 AM EDT [facility] Total Protein 4.8(L) 6.4 - 8.3 gm/dL 01/13/2024 10:05 AM EDT [facility] Bili Total 0.2 0.2 - 1.3 mg/dL 01/13/2024 10:05 AM EDT [facility] ALT 23 <=41 U/L 01/13/2024 10:05 AM EDT [facility] AST 24 <=40 U/L 01/13/2024 10:05 AM EDT [facility] Alk Phos 88 36 - 123 U/L 01/13/2024 10:05 AM EDT [facility] eGFR (CKD-EPIcr 2020) 61 >=60 mL/min/1.7 3 m2 01/13/2024 10:05 AM EDT [facility] Comment:Estimated GFR was ca lculated using the CKD-EPIcr (2020) equation refit without race. The equation is recommended by the National Kidney Foundation - [place] Society of Nephrology Task Force. Blood VENOUS BLOOD / Unknown 01/13/2024 5:36 AM EDT 01/13/2024 8:54 AM EDT us [facility] CHEMISTRY ORDERABLES Final Resu lt [facility] [address] [facility] , [place] [address] [facility] [address] [place] [address] * (ABNORMAL) CBC (01/13/2024 5:36 AM EDT) [facility] Signature WBC 7.0 3.7 - 10.3 x10(3)/mcL 01/13/2024 9:21 AM EDT [facility] RBC 3.18(L) 3.90 - 5.20 x10(6)/mcL 01/13/2024 9:21 AM EDT [facility] Hgb 8.8(L) 11.2 - 15.7 g/dL 01/13/2024 9:21 AM EDT [facility] Hct 28.1(L) 34.0 - 45.0 % 01/13/2024 9:21 AM EDT [facility] MCV 88.4 80.0 - 100.0 fL 01/13/2024 9:21 AM EDT [facility] MCH 27.7 26.0 - 34.0 pg 01/13/2024 9:21 AM EDT [facility] MCHC 31.3 30.7 - 35.5 g/dL 01/13/2024 9:21 AM EDT [facility] RDW 19.9(H) <=14.9 % 01/13/2024 9:21 AM EDT [facility] Platelet 184 155 - 369 x10(3)/mcL 01/13/2024 9:21 AM EDT [facility] MPV 9.6 8.8 - 12.5 fL 01/13/2024 9:21 AM EDT [facility] Blood VENOUS BLOOD / Unknown 01/13/2024 5:36 AM EDT 01/13/2024 8:54 AM EDT [facility] HEMATOLOGY ORDERABLES Final Res ult [facility] [address] [place] [address] , [place] [address] documented in this encounter Visit Diagnoses Diagnosis Encounter for general adult medical examination without abnormal findings Routine general medical examination at a health care facility documented in this encounter
--- OUTSIDE RECORDS SUMMARY | 2025-02-06 14:46 | XMS_ITS | Encounter Summary ---
Author Organization [place] Address [facility] [place] [address] Care Team Providers Care Environmental Control Administrator Name Role Phone Unavailable Primary Care Provider Unavailabl e Encounter Details Date Type Department Care Team (Late st Contact Info) Description 01/19/2024 Lab Requisition [facility]ATORY [facility] Shorty Mitch [facility] Encounter for general adult [...] Procedure Name Priority Date/Time Associated Diagnosis Comments EXTRA RED/YELLOW UA Routine 01/19/2024 8 :00 AM EDT Encounter for general adult medical examination without abnormal findings UREA NITROGEN LEVEL URINE Routine 01/19/2024 8:00 AM EDT Encounter for general adult medical examination without abnormal findings SODIUM LEVEL URINE Routine 01/19/2024 8: 00 AM EDT Encounter for general adult medical examination without abnormal findings PROTEIN LEVEL URINE Routine 01/19/2024 8 :00 AM EDT Encounter for general adult medical examination without abnormal findings OSMOLALITY URINE Routine 01/19/2024 8:00 AM EDT Encounter for general adult medical examination without abnormal findings CREATININE LEVEL URINE Routine 01/19/2024 8:00 AM EDT Encounter for general adult medical examination without abnormal findings documented in this encounter Results * EXTRA RED/YELLOW UA (01/19/2024 8:00 AM EDT) Urine URINE SPECIMEN COLLECTION / Unknown 01/19/2024 8:00 AM EDT 01/19/2024 9:06 AM EDT [facility] URINE ORDERABLES Final Result [facility] [address] [place] [address] * PROTEIN LEVEL URINE (01/19/2024 8:00 AM EDT) Urine Protein 14.3 mg/dL 01/19/2024 9:34 AM EDT [facility]rine URINE SPECIMEN COLLECTION / Unknown 01/19/2024 8:00 AM EDT 01/19/2024 8:26 AM EDT [facility] URINE ORDERABLES Final Result Performing Organization Address [facility] Co de Phone Number [facility] [address] [facility] , [place] [address] * UREA NITROGEN LEVEL URINE (01/19/2024 8:00 AM EDT) Urine Urea 232.2 mg/dL 01/19/2024 9:39 AM EDT [facility] Urine URINE SPECIMEN COLLECTION / Unknown 01/19/2024 8:00 AM EDT 01/19/2024 8:25 AM EDT [facility] URINE ORDERABLES Final Result Performing Organization Address [facility] Co de Phone Number [facility] [address] [facility] , [place] [address] * SODIUM LEVEL URINE (01/19/2024 8:00 AM EDT) Urine Sodium <10 mmol/L 01/19/2024 9:39 AM EDT [facility] URINE SPECIMEN COLLECTION / Unknown 01/19/2024 8:00 AM EDT 01/19/2024 8:25 AM EDT us [facility] URINE ORDERABLES Final Result Performing Organization Address City/[facility]/ZIP Co de Phone Number [facility] [address] [facility], [place] [address] * OSMOLALITY URINE (01/19/2024 8:00 AM EDT) Urine Osmolality 176 50 - 1,400 mOsm/kg 01/19/2024 10:23 AM EDT [facility] URINE SPECIMEN COLLECTION / Unknown 01/19/2024 8:00 AM EDT 01/19/2024 8:25 AM EDT Narrative [facility] - 01/19/2024 10:23 AM EDT Normal Range: 50 mOSM/kg during maximum water diuresis to 1400 mOSM/kg during maximum urinary concentration. Reference range valid for random specimens only. us [facility] URINE ORDERABLES Final Result Performing Organization Address [facility] Co de Phone Number [facility] [address], [place] [address] * CREATININE LEVEL URINE (01/19/2024 8:00 AM EDT) Urine Creatinine 51.7 mg/dL 01/19/2024 9:39 AM EDT [facility] URINE SPECIMEN COLLECTION / Unknown 01/19/2024 8:00 AM EDT 01/19/2024 8:25 AM EDT us [facility] URINE ORDERABLES Final Result Performing Organization Address City/[facility]/ZIP Co de Phone Number [facility] [address], [place] [address] documented in this encounter Visit Diagnoses Diagnosis Encounter for general adult medical examination without abnormal findings Routine general medical examination at a health care facility documented in this encounter
--- OUTSIDE RECORDS SUMMARY | 2025-02-06 14:46 | XMS_ITS | Encounter Summary ---
Author Organization [place] Address [place] [address] Care Team Providers Care Human Resources Recruiter Name Role Phone Unavailable Primary Care Provider Unavailabl e Encounter Details Date Type Department Care Team (Late st Contact Info) Description 01/19/2024 Lab Requisition [facility] Shorty Mitch [facility] Encounter for general adult [...] Priority Date/Time Associated Diagnosis Comments CBC Routine 01/19/2024 6:30 AM EDT Encounter for general adult medical examination without abnormal findings OSMOLALITY Routine 01/19/2024 6:30 AM EDT Encounter for general adult medical examination without abnormal findings RENAL FUNCTION PANEL Routine 01/19/2024 6:30 AM EDT Encounter for general adult medical examination without abnormal findings documented in this encounter Results * (ABNORMAL) CBC (01/19/2024 6:30 AM EDT) WBC 5.7 3.7 - 10.3 x10(3)/mcL 01/19/2024 9:18 AM EDT [facility] RBC 3.40(L) 3.90 - 5.20 x10(6)/mcL 01/19/2024 9:18 AM EDT [facility] Hgb 9.4(L) 11.2 - 15.7 g/dL 01/19/2024 9:18 AM EDT [facility] Hct 29.3(L) 34.0 - 45.0 % 01/19/2024 9:18 AM EDT [facility] MCV 86.2 80.0 - 100.0 fL 01/19/2024 9:18 AM EDT [facility] MCH 27.6 26.0 - 34.0 pg 01/19/2024 9:18 AM EDT [facility] MCHC 32.1 30.7 - 35.5 g/dL 01/19/2024 9:18 AM EDT [facility] RDW 16.8(H) <=14.9 % 01/19/2024 9:18 AM EDT [facility] Platelet 261 155 - 369 x10(3)/mcL 01/19/2024 9:18 AM EDT [facility] MPV 10.4 8.8 - 12.5 fL 01/19/2024 9:18 AM EDT [facility] Blood VENOUS BLOOD / Unknown 01/19/2024 6:30 AM EDT 01/19/2024 8:48 AM EDT [facility] HEMATOLOGY ORDERABLES Final Res ult Performing Organization Address City/[facility]/ZIP Co de Phone Number [facility], [address] , [place] [address] * OSMOLALITY (01/19/2024 6:30 AM EDT) Osmo-Serum 276 275 - 295 mOsm/kg 01/19/2024 10:17 AM EDT [facility] Blood VENOUS BLOOD / Unknown 01/19/2024 6:30 AM EDT 01/19/2024 8:48 AM EDT [facility] CHEMISTRY ORDERABLES Final Resu lt [facility] [address] [facility] , [place] [address] * (ABNORMAL) RENAL FUNCTION PANEL (01/19/2024 6:30 AM EDT) Sodium 136 136 - 145 mmol/L 01/19/2024 9:39 AM EDT [facility] Potassium 3.6 3.5 - 5.0 mmol/L 01/19/2024 9:39 AM EDT [facility] Chloride 104 98 - 107 mmol/L 01/19/2024 9:39 AM EDT [facility] Total CO2 22 22 - 29 mmol/L 01/19/2024 9:39 AM EDT [facility] Anion Gap 10 7 - 16 mmol/L 01/19/2024 9:39 AM EDT [facility] Calcium 9.1 8.8 - 10.4 mg/dL 01/19/2024 9:39 AM EDT [facility] Glucose Lvl 88 70 - 99 mg/dL 01/19/2024 9:39 AM EDT [facility] BUN 16 8 - 23 mg/dL 01/19/2024 9:39 AM EDT [facility] Creatinine 1.23 0.51 - 1.30 mg/dL 01/19/2024 9:39 AM EDT [facility] Albumin 2.9(L) 3.2 - 4.6 gm/dL 01/19/2024 9:39 AM EDT [facility] Phosphorus 3.7 2.5 - 4.5 mg/dL 01/19/2024 9:39 AM EDT [facility] eGFR (CKD-EPIcr 2020) 45(L) >=60 mL/min/1.7 3 m2 01/19/2024 9:39 AM EDT [facility] Comment:Estimated GFR was ca lculated using the CKD-EPIcr (2020) equation refit without race. The equation is recommended by the National Kidney Foundation - [place] Society of Nephrology Task Force. Blood VENOUS BLOOD / Unknown 01/19/2024 6:30 AM EDT 01/19/2024 8:48 AM EDT us [facility] CHEMISTRY ORDERABLES Final Resu lt [facility] [address] [facility] , [place] [address] [facility] [address] [place] [address] documented in this encounter Visit Diagnoses Diagnosis Encounter for general adult medical examination without abnormal findings Routine general medical examination at a health care facility documented in this encounter
[2025-02-06 16:27] LABS: Creatinine,Serum 1.20 mg/dl (0.52-1.04); Estimated Glomerular Filt Rate 43 ml/min (>60); GFR (African American) 53 ML/MIN (>60)
== END 2025-02-06 23:59 | disposition home or self-care (01) ==
LOC: LAB 14:43
PROVIDERS: PCP Internal Medicine; Visit Provider Student in an Organized Health Care Education/Training Program
DX: K50.90 Crohn's disease, unspecified, without complications (principal)
CPT/HCPCS: 36415; 82565

== ENCOUNTER 2025-02-20 13:48 | Outpatient (CLI) | payer MEDICARE, SELFPAY ==
[2025-02-20 17:17] LABS: Microscopic, Urine URINE MICROSCOPIC (MICROSCOPIC)
[2025-02-20 20:23] LABS: Bilirubin,Urine Negative (Negative); Color,Urine YELLOW (Yellow); Glucose,Urine (UA) Negative (Negative); Ketones,Urine Negative (Negative); Leukocyte Esterase,Urine 1+ (Negative); PH,Urine 5.5 (5.0-8.5); Protein,Urine Negative (Negative); Specific Gravity, Urine 1.025 (1.005-1.030); Urobilinogen,Urine 0.2 EU/dl (0.2)
[2025-02-20 20:51] LABS: Amorphous Sediment,Urine 1+ /lpf; Bacteria,Urine 4+ /lpf
--- OUTSIDE RECORDS SUMMARY | 2025-02-21 11:15 | XMS_ITS | Clinical Summary ---
Author Organization [employer] ([place], [place], [place], [place]) Address [address] [place] [address] Care Team Providers Care Student Outreach Coordinator Name Role Phone Les Carrion DO Primary Care Provider [phone] [phone] Allergies No known active allergies Medications cholecalciferol [...] Department Care Team Description 11/29/2024 Orders Only [facility] Cardiology [address] [address] Geeta Hammond CMA 11/29/2024 Orders Only [address] [address] Geeta Hammond CMA 11/28/[address] [address] Geeta Hammond CMA Medication Management 11/27/2024 9:45 AM EDT Office Visit [facility] Electrophysiology [address] [place] [address] Teressa Mayorga MD Bradycardia (Primary Dx); Paroxysmal atrial fibrillation (HCC); Presence of Watchman left atrial appendage closure device 11/27/2024 Travel from Last 3 Months Family History Medical [...] Date Soren rded Speak language other than Montenegrin at home Not on file 03/06/2024 Want [...] Description 05/08/2025 2:00 PM EDT Office Visit [facility] Cardiology [address] [address] Talon Sales DO [address] [place] [address] Health Maintenance Due Date Last Done Comments DXA SCAN 1945 Depression Screening (12+) 1958 Hepatitis C Screening 1964 DTAP/TDAP/TD VACCINES (1 - Tdap) 1965 Pneumococcal 50+ years (1 of 2 - PCV) 1965 Shingles Vaccine (Zoster) (1 of 2) 1996 Respiratory Syncytial Virus (RSV) Adult or (1 - 1-dose 75+ series) 2021 COVID-19 VACCINE ( season) 2024 Falls Risk Screening 07/26/2024 Medicare IPPE (Welcome to Medicare) G0402 07/26/2024 Influenza Vaccine (#1) 2025 Tobacco Cessation Counseling and Screening (12+) 11/2711/27/2024 Procedures Procedure Name Priority Date/Time Associated Diagnosis Comments [id number] 12-LEAD Routine 11/27/2024 9:58 A M EDT Bradycardia from Last 3 Months Results * ECG 12 lead (11/27/2024 9:58 AM EDT) us Yousef Mukesh CORBIN ECG ORDERABLES Final Result from Last 3 Months Insurance [facility] [place] [address] Advance Directives For more information, please contact: [phone] * Full Code (Latest Code Status on [...] 4:41 AM 08/08/2024 8:08 AM Care Teams Student Outreach Coordinator Relationship Specialty Start Date End Date Les Carrion DO PCP - General Internal Medicine 03/20/24
--- OUTSIDE RECORDS SUMMARY | 2025-02-21 11:15 | XMS_ITS | Encounter Summary ---
Author Organization [place] Address [facility] [place] [address] Care Team Providers Care Ultrasonic Cleaner Name Role Phone Unavailable Primary Care Provider Unavailabl e Encounter Details Date Type Department Care Team (Late st Contact Info) Description 01/17/2024 Lab Requisition [facility] Encounter for general adult [...] 01/17/2024 11:18 AM EDT [facility] Calcium 9.5 8.8 - 10.4 mg/dL 01/17/2024 11:18 AM EDT [facility] Glucose Lvl 96 70 - 99 mg/dL 01/17/2024 11:18 AM EDT [facility] BUN 16 8 - 23 mg/dL 01/17/2024 11:18 AM EDT [facility] Creatinine 1.33(H) 0.51 - 1.30 mg/dL 01/17/2024 11:18 AM EDT [facility] Albumin 3.1(L) 3.2 - 4.6 gm/dL 01/17/2024 11:18 AM EDT [facility] Total Protein 5.8(L) 6.4 - 8.3 gm/dL 01/17/2024 11:18 AM EDT [facility] Bili Total 0.3 0.2 - 1.3 mg/dL 01/17/2024 11:18 AM EDT [facility] ALT 25 <=41 U/L 01/17/2024 11:18 AM EDT [facility] AST 22 <=40 U/L 01/17/2024 11:18 AM EDT [facility] Alk Phos 90 36 - 123 U/L 01/17/2024 11:18 AM EDT [facility] eGFR (CKD-EPIcr 2020) 41(L) >=60 mL/min/1.7 3 m2 01/17/2024 11:18 AM EDT [facility] Comment:Estimated GFR was ca lculated using the CKD-EPIcr (2020) equation refit without race. The equation is recommended by the National Kidney Foundation - [place] Society of Nephrology Task Force. Blood VENOUS BLOOD / Unknown 01/17/2024 6:00 AM EDT 01/17/2024 10:01 AM EDT us [facility] CHEMISTRY ORDERABLES Final Resu lt [facility] [address] [facility] , [place] [address] [facility] [address] [place] [id number] * (ABNORMAL) CBC (01/17/2024 6:00 AM EDT) [...] 6:00 AM EDT 01/17/2024 10:01 AM EDT [facility] HEMATOLOGY ORDERABLES Final Res ult [facility] [address] [place] [address], [place] [address] documented in this encounter Visit Diagnoses Diagnosis Encounter for general adult medical examination without abnormal findings Routine general medical examination at a health care facility documented in this encounter
--- OUTSIDE RECORDS SUMMARY | 2025-02-21 11:15 | XMS_ITS | Encounter Summary ---
Author Organization [place] Address [facility] [place] [address] Care Team Providers Care Chip Washer Name Role Phone Unavailable Primary Care Provider Unavailabl e Encounter Details Date Type Department Care Team (Late st Contact Info) Description 01/20/2024 Lab Requisition [facility] Shorty Mitch [facility] [place] Encounter for general adult medical [...] 7:30 AM EDT 01/20/2024 9:13 AM EDT [facility] HEMATOLOGY ORDERABLES Final Res ult [facility] [address] [facility] , [address] [place] [id number] * (ABNORMAL) COMPREHENSIVE METABOLIC PANEL (01/20/2024 7:30 [...] 01/20/2024 10:33 AM EDT [facility] Glucose Lvl 89 70 - 99 mg/dL 01/20/2024 10:33 AM EDT [facility] BUN 15 8 - 23 mg/dL 01/20/2024 10:33 AM EDT [facility] Creatinine 1.13 0.51 - 1.30 mg/dL 01/20/2024 10:33 AM EDT [facility] Albumin 3.2 3.2 - 4.6 gm/dL 01/20/2024 10:33 AM EDT [facility] Total Protein 5.7(L) 6.4 - 8.3 [...] 01/20/2024 10:33 AM EDT [facility] eGFR (CKD-EPIcr 2020) 50(L) >=60 mL/min/1.7 3 m2 01/20/2024 10:33 AM EDT [facility] Comment:Estimated GFR was ca lculated using the CKD-EPIcr (2020) equation refit without race. The equation is recommended by the National Kidney Foundation - [place] Society of Nephrology Task Force. Blood VENOUS BLOOD / Unknown 01/20/2024 7:30 AM EDT 01/20/2024 9:13 AM EDT us [facility] CHEMISTRY ORDERABLES Final Resu lt [facility] [address] [facility] , [place] [address] [facility] 1 [place] [address] documented in this encounter Visit Diagnoses Diagnosis Encounter for general adult medical examination without abnormal findings Routine general medical examination at a health care facility documented in this encounter
--- OUTSIDE RECORDS SUMMARY | 2025-02-21 11:15 | XMS_ITS | Encounter Summary ---
Author Organization [employer] ([place], [place], [place], [place]) Address [address] [place] [address] Care Team Providers Care Market Development Executive Name Role Phone EverardoLes nuñez Primary Care Provider [phone] [phone] Reason for Visit * Reason Comments Med Change Request Encounter Details Date Type Department Care Team (Late st Contact Info) Description 03/21/2024 [facility] Cardiology [address] [address] Jagjit Florentino, PA-C [address] [place] [address] Social History Tobacco Use Types Packs/Day [...] Date Soren rded Speak language other than Tajik at home Not on file 03/06/2024 Want [...] Description 05/08/2025 2:00 PM EDT Office Visit [facility] Cardiology [address] [address] Talon Sales DO [address] [place] [address] documented as of this encounter Visit Diagnoses Not on filedocumented in this encounter Care Teams Market Development Executive Relationship Specialty Start Date End Date Les Carrion DO PCP - General Internal Medicine 03/20/24 documented as of this encounter
--- OUTSIDE RECORDS SUMMARY | 2025-02-21 11:15 | XMS_ITS | Encounter Summary ---
Author Organization [place] Address [facility] [place] [address] Care Team Providers Care Welder Setter Electron Beam Machine Name Role Phone Unavailable Primary Care Provider Unavailabl e Encounter Details Date Type Department Care Team (Late st Contact Info) Description 01/19/2024 Lab Requisition [facility] LAB[facility] Shorty Mitch [facility] Encounter for general adult [...] 01/19/2024 9:18 AM EDT [facility] RDW 16.8(H) <=14.9 % 01/19/2024 9:18 AM EDT [facility] Platelet 261 155 - 369 x10(3)/mcL 01/19/2024 9:18 AM EDT [facility] MPV 10.4 8.8 - 12.5 fL 01/19/2024 9:18 AM EDT [facility] Blood VENOUS BLOOD / Unknown 01/19/2024 6:30 AM EDT 01/19/2024 8:48 AM EDT [facility] HEMATOLOGY ORDERABLES Final Res ult Performing Organization Address City/[facility]/ZIP Co de Phone Number [facility] [employer], [address] , [place] [address] * OSMOLALITY (01/19/2024 6:30 AM EDT) Osmo-Serum 276 275 - 295 mOsm/kg 01/19/2024 10:17 AM EDT [facility] Blood VENOUS BLOOD / Unknown 01/19/2024 6:30 AM EDT 01/19/2024 8:48 AM EDT [facility] CHEMISTRY ORDERABLES Final Resu lt [facility] [address] [facility] , [place] [address] * (ABNORMAL) RENAL FUNCTION PANEL (01/19/2024 6:30 AM EDT) Sodium 136 136 - 145 mmol/L 01/19/2024 9:39 AM EDT [facility] Potassium 3.6 3.5 - 5.0 mmol/L 01/19/2024 9:39 AM EDT [facility] Chloride 104 98 - 107 mmol/L 01/19/2024 9:39 AM EDT [facility] Total CO2 22 22 - 29 mmol/L 01/19/2024 9:39 AM EDT [facility] Anion Gap 10 7 - 16 mmol/L 01/19/2024 9:39 AM EDT [facility] Calcium 9.1 8.8 - 10.4 mg/dL 01/19/2024 9:39 AM EDT [facility] Glucose Lvl 88 70 - 99 mg/dL [...] 01/19/2024 9:39 AM EDT [facility] eGFR (CKD-EPIcr 2020) 45(L) >=60 mL/min/1.7 3 m2 01/19/2024 9:39 AM EDT [facility] Comment:Estimated GFR was ca lculated using the CKD-EPIcr (2020) equation refit without race. The equation is recommended by the National Kidney Foundation - [place] Society of Nephrology Task Force. Blood VENOUS BLOOD / Unknown 01/19/2024 6:30 AM EDT 01/19/2024 8:48 AM EDT us [facility] CHEMISTRY ORDERABLES Final Resu lt [facility] [address] [facility] , [place] [address] [facility] 1 [place] [address] documented in this encounter Visit Diagnoses Diagnosis Encounter for general adult medical examination without abnormal findings Routine general medical examination at a health care facility documented in this encounter
--- OUTSIDE RECORDS SUMMARY | 2025-02-21 11:15 | XMS_ITS | Clinical Summary ---
[facility] Address [address] [place] [address] Care Team Providers Care Clock And Watch Assembler Name Role Phone Les Carrion DO Primary Care Provider [phone] [phone] Allergies No known active allergies Medications Cholecalciferol (Vitamin D3) 50 MCG (1999) capsule Daily 4 Active Eliquis 5 MG tablet tablet Take 1 tablet by mouth 2 (Two) Times a Day. Active timolol (TIMOPTIC) 0.5 % ophthalmic solution instill 1 drop into both eyes twice a day 4 Active latanoprost (XALATAN) 0.005 % ophthalmic solution Administer 1 drop to both eyes every night at bedtime. 4 Active methocarbamol (ROBAXIN) 750 MG tablet Take 1 tablet by mouth 3 (Three) Times a Day As Needed for Muscle Spasms. 4 Active Additional Information Patient not taking.Reported on 02/14/2024 famotidine (Pepcid) 20 MG tablet Take 1 tablet by mouth 2 (Two) Times a Day. 4 Active Simethicone (GAS-X MAXIMUM STRENGTH PO) 2 (Two) Times a Day. 4 Active loperamide (IMODIUM) 2 MG capsule Take 2 capsules by mouth 3 times a day. 4 Active NON FORMULARY Ocular lubricant ophthalmic prn Active acetaminophen (TYLENOL) 325 MG tablet Take 2 tablets by mouth Every 6 (Six) Hours As Needed for Mild Pain. Active calcium carbonate (TUMS) 500 MG chewable tablet Chew 1 tablet At Night As Needed for Indigestion or Heartburn. Active atorvastatin (LIPITOR) 80 MG tabletIndication s:Cerebrovascula r accident (CVA), unspecified mechanism Take 1 tablet by mouth Every Night. 90 tablet 1 Active amLODIPine (NORVASC) 2.5 MG tabletIndication s:Essential hypertension Take 1 tablet by mouth Every Night. 30 tablet 1 4 Active Additional Information Patient taking differently:2.5 mg Oral Nightly,Has not started, Reported on 02/17/2024 metoprolol tartrate (LOPRESSOR) 50 MG tabletIndication s:Paroxysmal atrial fibrillation Take 1 tablet by mouth 2 (Two) Times a Day. 60 tablet 2 Active multivitamin with minerals tablet tablet Take 1 tablet by mouth Daily. Active Cyanocobalamin (Vitamin B-12) [address] under the tongue. Active Active Problems Problem Noted Date Diagnosed Date Essential hypertension 01/05/2024 Moderate malnutrition 12/25/2023 Crohn's disease; s/p SB rese ction, colectomy, bladder repair, ileostomy, colostomy 12/29/23 12/24/2023 Paroxysmal atrial fibrillation 12/24/2023 Overview (01/05/2024): Initial onset 08/2023 with acceptable echo and MPS. LVEF 56% mild AI/MR. Not initiated on anticoagulation [id number] (4% annual stroke risk) Macular degeneration of both eyes 12/24/2023 Resolved Problems Problem Noted Date Diagnosed Date Resolved Date Acute CVA (cerebrovascular accident) 01/06/2024 01/12/2024 CASTILLO (acute kidney injury) 01/05/2024 Atrial fibrillation with RVR 12/28/2023 01/12/2024 Family History Medical History Relation Name Comments Cancer Brother Hypertension Father Hypotension Father Macular degeneration Father Vision loss Father Hypertension Mother Relation Name Status Comments Brother Father Mother Social History Tobacco Use Types Packs/Day Years Used Date Smoking Tobacco: Never Passive Smoke Exposure: Never Smokeless Tobacco: Never Tobacco Cessation:Counseling Given: No Alcohol Use Standard Drinks/Week Comments Never 0 (1 standard drink = 0.6 oz pur e alcohol) AUDIT-C Answer Date Recorded Q1: How often do you have a drink containing alcohol? Never 12/24/2023 Q2: How many drinks containi ng alcohol do you have on a typical day when you are drinking? Patient does not drink Q3: How often do you have si x or more drinks on one occasion? Never 12/24/2023 Abuse Screen Answer Date Recorded Feels Unsafe at Home or Work/School no 12/24/2023 Feels Threatened by Someone no 11/25 Does Anyone Try to Keep You From Having Contact with Others or Doing Things Outside Your Home? no 12/24/2023 Physical Signs of Abuse Present no 12/24/2023 Housing Stability Answer Date Recorded Current Living Arrangements home 08/2023 Potentially Unsafe Housing Conditions Not on jada e 12/26/2023 Family and Community Support Answer Liu e Recorded Help with Day-to-Day Activities Not on file 12/24/2023 Lonely or Isolated Not on file 12/24/2023 Employment Answer Date Recorded Do you want help finding or keeping work or a raghu b? Not on file 12/24/2023 Disabilities Answer Date Recorded Difficulty Concentrating, Remembering or Making Decisions no 12/24/2023 Difficulty Managing Errands Independently no 12/24/2023 Education Answer Date Recorded Help with school or training? Not on file Preferred Language Croatian 12/26/2023 PHQ-2 Answer Date Recorded Retired PHQ-9: Brief Depression Severity Measure Score 0 02/17/2024 Comments No Sex and Gender Information Value Date Recorded Sex Assigned at Not on file Legal Sex Female 4:09 PM EDT Gender Identity Not on file Sexual Orientation Not on file Last Filed Vital Signs Vital Sign Reading Time Taken Comments Blood Pressure 120/78 02/17/2024 1:26 PM EDT Pulse 51 02/17/2024 1:26 PM EDT Temperature 36.4 C (97.5 F) 02/17/2024 1:26 PM EDT Respiratory Rate 18 02/14/2024 2:02 PM EDT Oxygen Saturation 90% 02/17/2024 1:26 PM EDT Inhaled Oxygen Concentration - - Weight 47.6 kg (105 lb) 02/17/2024 1:26 PM EDT Height 154.9 cm (5' 0.98 ) 02/17/2024 1:26 PM ED T Body Mass Index 19.85 02/17/2024 1:26 PM EDT Plan of Treatment Health Maintenance Due Date Last Done Comments DXA SCAN 1945 Pneumococcal Vaccine 50+ (1 of 1 - PCV) 1996 ZOSTER VACCINE (1 of 2) 1996 RSV Vaccine - Adults (1 - 1- dose 75+ series) 2021 ANNUAL WELLNESS VISIT 01/04/2024 HEPATITIS C SCREENING 01/04/2024 COVID-19 Vaccine ( - season) 2024 INFLUENZA VACCINE 04/25/2025 TDAP/TD VACCINES (3 - Td or Tdap) 11/17/2025 016, 12/04/2011 Medical Devices Implanted Type Area Engineer System Administrator Device Identifier Shelf Expiration Date Model / Serial / Lot Stplr Lnr Cut Prox 75mm Ranjan [id number] - [id number] Implanted:Qty : 1 on 12/29/2023 by Rolando Mtz MD at [facility] Implant Colon [employer] [id number] 09/22/2028 [id number] / / [id number] Reload Stplr Lnr Cut Prox 75mm Ranjan [id number] - [id number] Implanted:Qty : 1 on 12/29/2023 by Rolando Mtz MD at [facility] Implant Colon [employer] [id number] 09/22/2028 [id number] / / [id number] Insurance MEDICARE ADVANTAGE HMO NON PAR Advance Directives Documents on File Type Date Recorded Patient Studio Sales Associate Expl anation LIVING WILL - SCAN 12/25/2023 12:05 PM Stephie RESENDIZ NG WILL DIRECTIVE, BHLEX, 12/25/2023 * CPR (Attempt to Resuscitate) (Latest Code Status on File) Date Activated Date Inactivated Comments 12/29/2023 8:24 PM 01/12/2024 4:38 PM Question Answer Comments Code Status (Patient has no pulse and is not breathing): CPR (Attempt to Resuscitate) Medical Interventions (Patie nt has pulse or is breathing): Full * CPR (Attempt to Resuscitate) Date Activated Date Inactivated Comments 12/24/2023 6:35 PM 12/29/2023 8:24 PM Question Answer Comments Code Status (Patient has no pulse and is not breathing): CPR (Attempt to Resuscitate) Medical Interventions (Patie nt has pulse or is breathing): Full Support Level Of Support Discussed With: Patient Healthcare Agents on File Name Relationship Healthcare Agent Relationshi p Communication Stephie Bhandari Daughter Health Care Surrogate Care Teams Clock And Watch Assembler Relationship Specialty Start Date End Date Les Carrion DO [address] [place] [address] PCP - General Internal Medicine 12/24/23
--- OUTSIDE RECORDS SUMMARY | 2025-02-21 11:15 | XMS_ITS | Encounter Summary ---
Author Organization [place] Address [facility] [place] [address] Care Team Providers Care Clinical Assessment Manager Name Role Phone Unavailable Primary Care Provider Unavailabl e Encounter Details Date Type Department Care Team (Late st Contact Info) Description 01/13/2024 Lab Requisition [facility] Shorty Mitch [facility] Encounter for general adult [...] 01/13/2024 10:05 AM EDT [facility] Calcium 8.5(L) 8.8 - 10.4 mg/dL 01/13/2024 10:05 AM EDT [facility] Glucose Lvl 79 70 - 99 mg/dL 01/13/2024 10:05 AM EDT [facility] BUN 13 8 - 23 mg/dL 01/13/2024 10:05 AM EDT [facility] Creatinine 0.95 0.51 - 1.30 mg/dL 01/13/2024 10:05 AM EDT [facility] Albumin 2.4(L) 3.2 - 4.6 gm/dL 01/13/2024 10:05 AM EDT [facility] Total Protein 4.8(L) 6.4 - 8.3 gm/dL 01/13/2024 10:05 AM EDT [facility] Bili Total 0.2 0.2 - 1.3 mg/dL 01/13/2024 10:05 AM EDT [facility] ALT 23 <=41 U/L 01/13/2024 10:[address] [facility] AST 24 <=40 U/L 01/13/2024 10:[address] [facility] Alk Phos 88 36 - 123 U/L 01/13/2024 10:[address] [facility] eGFR (CKD-EPIcr 2020) 61 >=60 mL/min/1.7 3 m2 01/13/2024 10:05 AM EDT [facility] Comment:Estimated GFR was ca lculated using the CKD-EPIcr (2020) equation refit without race. The equation is recommended by the National Kid[employer] - [place] [employer] Neph[employer] Task Force. Blood VENOUS BLOOD / Unknown 01/13/2024 5:36 AM EDT 01/13/2024 8:54 AM EDT us [facility] CHEMISTRY ORDERABLES Final Resu lt [facility] [address] [facility] , [address] [address] [facility] [address] [place] [address] * (ABNORMAL) CBC (01/13/2024 5:36 AM EDT) [facility] Signature WBC 7.0 3.7 - 10.3 x10(3)/mcL [...] 5:36 AM EDT 01/13/2024 8:54 AM EDT [facility] HEMATOLOGY ORDERABLES Final Res ult [facility] [address] [place] [address] , [place] [address] documented in this encounter Visit Diagnoses Diagnosis Encounter for general adult medical examination without abnormal findings Routine general medical examination at a health care facility documented in this encounter
--- OUTSIDE RECORDS SUMMARY | 2025-02-21 11:15 | XMS_ITS | Encounter Summary ---
Author Organization [place] Address [facility] [place] [address] Care Team Providers Care Process Improvement Consultant Name Role Phone Unavailable Primary Care Provider Unavailabl e Encounter Details Date Type Department Care Team (Late st Contact Info) Description 01/19/2024 Lab Requisition [facility] Shorty Mitch [facility] Encounter for general adult medical [...] EDT [facility] URINE ORDERABLES Final Result [facility] [address] [place] [address] * PROTEIN LEVEL URINE (01/19/2024 8:00 AM EDT) Urine Protein 14.3 mg/dL 01/19/2024 9:34 AM EDT [facility] Urine URINE SPECIMEN COLLECTION / Unknown 01/19/2024 8:00 AM EDT 01/19/2024 8:26 AM EDT [facility] URINE ORDERABLES Final Result Performing Organization Address [facility] Co de Phone Number [facility] [address] [facility] , [place] [address] * UREA NITROGEN LEVEL URINE (01/19/2024 8:00 AM EDT) Urine Urea 232.2 mg/dL 01/19/2024 9:39 AM EDT [facility] Urine URINE SPECIMEN COLLECTION / Unknown 01/19/2024 8:00 AM EDT 01/19/2024 8:25 AM EDT [facility] URINE ORDERABLES Final Result Performing Organization Address [facility] Co de Phone Number [facility] [address] [facility] , [place] [address] * SODIUM LEVEL URINE (01/19/2024 8:00 AM EDT) Urine Sodium <10 mmol/L 01/19/2024 9:39 AM EDT [facility] Urine URINE SPECIMEN COLLECTION / Unknown 01/19/2024 8:00 AM EDT 01/19/2024 8:25 AM EDT [facility] URINE ORDERABLES Final Result Performing Organization Address City/[facility]/ZIP Co de Phone Number [facility] [address] [facility] [address], [place] [address] * OSMOLALITY URINE (01/19/2024 8:00 AM EDT) Urine Osmolality 176 50 - 1,400 mOsm/kg 01/19/2024 10:23 AM EDT [facility] Urine URINE SPECIMEN COLLECTION / Unknown 01/19/2024 8:00 AM EDT 01/19/2024 8:25 AM EDT Narrative [facility] - 01/19/2024 10:23 AM EDT Normal Range: 50 mOSM/kg during maximum water diuresis to 1400 mOSM/kg during maximum urinary concentration. Reference range valid for random specimens only. us [facility] URINE ORDERABLES Final Result Performing Organization Address [facility] Co de Phone Number [employer] [address], [place] [address] * CREATININE LEVEL URINE (01/19/2024 8:00 AM EDT) Urine Creatinine 51.7 mg/dL 01/19/2024 9:39 AM EDT [facility]rine URINE SPECIMEN COLLECTION / Unknown 01/19/2024 8:00 AM EDT 01/19/2024 8:25 AM EDT [facility] URINE ORDERABLES Final Result Performing Organization Address City/[facility]/ZIP Co de Phone Number [employer] [address], [place] [address] documented in this encounter Visit Diagnoses Diagnosis Encounter for general adult medical examination without abnormal findings Routine general medical examination at a health care facility documented in this encounter
--- OUTSIDE RECORDS SUMMARY | 2025-02-21 11:15 | XMS_ITS | Clinical Summary ---
Author Organization [facility] [place] Address [address] [place], [place] [address]y [address] [place] [address] Phone Care Team Providers Care Mixing Technician Name Role Phone Unavailable Primary Care Provider [...] patient's age to complete this topic Insurance [facility] [place] [id number] [facility] [address] MEDICARE COMPLETE AARP [place] [id number]
--- OUTSIDE RECORDS SUMMARY | 2025-02-21 11:15 | XMS_ITS | Referral Summary ---
Author Organization [employer] ([place], [place], [place], [place]) Address [address] [place] [address] Care Team Providers Care Sex Crimes Detective Name Role Phone Murali Les Mosher Primary Care Provider [phone] Encounters Date Type Department Care Team Description 11/29/2024 Orders Only [address] [address] Geeta Hammond, CLINICAL CARE LEADER 11/29/2024 Orders Only [address] [address] Geeta Hammond, CLINICAL CARE LEADER 11/28/[address] [address] Geeta Hammond, CLINICAL CARE LEADER Medication Management 11/27/2024 Travel 11/27/2024 9:45 AM EDT Office Visit [facility] Electrophysiology [address] [place] [address] Teressa Mayorga MD Bradycardia (Primary Dx); Paroxysmal atrial fibrillation (HCC); Presence of Watchman left atrial appendage closure device from Last 3 Months Allergies No known active allergies Medications cholecalciferol , vitamin D3, (Vitamin D3) 50 mcg (2,000 unit) Cap Take 1 capsule (2,000 Units total) by mouth daily. Active latanoprost (XALATAN) 0.005 % ophthalmic solution [...] Date Soren rded Speak language other than [place] at home Not on file 03/06/2024 Want [...] Description 05/08/2025 2:00 PM EDT Office Visit [facility] Cardiology [address] [address] Talon Sales DO [address] [place] [address] Procedures Procedure Name Priority Date/Time Associated Diagnosis Comments [id number] 12-LEAD Routine 11/27/2024 9:58 A M EDT Bradycardia from Last 3 Months Results * ECG 12 lead (11/27/2024 9:58 AM EDT) us Reedsef Mukesh CORBIN ECG ORDERABLES Final Result from Last [address] [place] [address] [place] [id number] [facility] [place] [address] Advance Directives For more information, please contact: [phone] * Full Code (Latest Code Status on [...] 4:41 AM 08/08/2024 8:08 AM Care Teams Sex Crimes Detective Relationship Specialty Start Date End Date Les Carrion DO PCP - General Internal Medicine 03/20/24
== END 2025-02-20 23:59 | disposition home or self-care (01) ==
LOC: LAB.DROPOF 02-21 11:12
PROVIDERS: PCP Internal Medicine; Visit Provider Internal Medicine
DX: N39.0 Urinary tract infection, site not specified (principal)
CPT/HCPCS: 81001; 87086